=== PATIENT | female | born 1955 | race Caucasian/White ===

== ENCOUNTER 2020-05-25 12:38 | Day surgery (SDC) | payer MEDICARE, MEDICAID, SELFPAY ==
--- NOTE | 2020-05-22 13:10 | HO.ANESPROP2 ---
Documented by User: Sonia Horne 05/22/20 13:14 HPI - Anesthesia Eval Consult details Narrative: 65yo F for Upper Endoscopy [facility] Past Medical History Medical History Anemia Diabetes mellitus type 2, controlled, without complications Esophagitis GERD (gastroesophageal reflux disease) Surgical History Surgical History H/O esophagogastroduodenoscopy History of colonoscopy Hx of cholecystectomy Social History Social History Smoking Status: Current every day smoker Smoked in Last 30 Days: Yes Use of substances other than those prescribed or required for medical reasons: No Advance Directives: No Recently lost weight without trying: No Meds Allergies Allergy/AdvReac Type Severity Reaction Status Date / Time eggs Allergy Mild nausea and Verified 05/25/20 12:42 vomiting Home Medications Medication Instructions Recorded Confirmed Type glimepiride 4 mg PO DAILY 05/25/20 05/25/20 History Exam Exam Date and Time: May 22, 2020 1310 Pertinent Lab Results Pertinent Lab Results: Laboratory Tests 02/06/20 03/11/20 03/11/20 09:15 12:44 12:44 WBC 9.4 Hgb 13.1 Hct 41.3 Plt Count 341 Sodium 140 Potassium 5.0 Chloride 105 BUN 15 Creatinine 0.78 Assessment and Plan Assessment Anesthesia Assessment: Chart Reviewed Documented by User: Moises Vaughn MD 05/25/20 13:08 [facility] Past Medical History Medical History Anemia Diabetes mellitus type 2, controlled, without complications Esophagitis GERD (gastroesophageal reflux disease) Surgical History Surgical History H/O esophagogastroduodenoscopy History of colonoscopy Hx of cholecystectomy Social History Social History Smoking Status: Current every day smoker Smoked in Last 30 Days: Yes Use of substances other than those prescribed or required for medical reasons: No Advance Directives: No Recently lost weight without trying: No Meds Allergies Allergy/AdvReac Type Severity Reaction Status Date / Time eggs Allergy Mild nausea and Verified 05/25/20 12:42 vomiting Home Medications Medication Instructions Recorded Confirmed Type glimepiride 4 mg PO DAILY 05/25/20 05/25/20 History Exam Airway Mallampati Class: II TM Dist: >3cm Neck ROM: Full Partial: Upper and Lower Heart: rrr Lungs: nl Assessment and Plan Assessment Anesthesia Assessment: Anesthesia Plan Discussed and Chart Reviewed Final Anesthetic Review NPO: Yes ASA Class: III Final Preanesthetic Review: No Changes in Pt Med Stat, Meds/Allgs Chart Reviewed, Consent Obtained/Reviewed and Anes Risks/Benef Reviewed Patient Risk: Low Procedure Risk: Low Anesthetic Plan Anesthetic Plan: MAC: Disposition: Standard PACU
[2020-05-25 12:57] VITALS: BP 121/47; PULSE 71; RESP 16; TEMP 35.8; O2SAT 94; BMI 25.0
[2020-05-25] MEDS: Lactated Ringers 1,000 ML 100 ML IVCONT (13:12)
[2020-05-25 13:17] LABS: Glucose, Whole Blood 82 mg/dL (60-115)
--- NOTE | 2020-05-25 13:48 | P.HPSUR_ITS ---
Pre-Procedural Eval Section B Chief Complaint: gerd Details of Present Illness: Getting more acid reflux - really bad - att ributes to taking red meat. Not going to be eating red meat. Taking Famotidine 20 mg one to two times a day - sometimes forgets to take the 2nd dose. has foul smelling gas. Relevant Family History (Specify if Yes): No Relevant Social History: Tobacco Use Present Medications: see Short Stay Collaborative assessment Medical History: Significant History ( DM2. High triglycerides. Anemia. ) History of Previous Operations: Relevant previous surgery/procedure and date(s) (cholecystectomy pancreatitis caused by gallstones. 1995 colonoscopy/EGD @[facility] [place] 2019 ) Allergies: Allergies Allergy/AdvReac Type Severity Reaction Status Date / Time eggs Allergy Mild nausea and Verified 05/25/20 12:42 vomiting Review of Systems Sugical H&P ROS: Negative: Constitution, Cardiovascular, Respiratory and Gastrointestinal Exam Surgical H&P Exam: Normal: Heart, Normal: Lungs, Normal: Extremities and Normal: Abdomen Plan Diagnosis/Plan: Unchanged Patient has been examined and remains a candidate for the planned procedure
[2020-05-25 14:15] VITALS: BP 114/42; PULSE 85; RESP 23; TEMP 36.9; O2SAT 92
[2020-05-25 14:30] VITALS: BP 124/66; PULSE 75; RESP 16; O2SAT 98
--- NOTE | 2020-05-25 14:32 | W.PM.OPN ---
Operative Note Operative Note Narrative: Date of procedure: 05/25/20 Pre-op diagnosis: Fu of erosive esophgitis Post-op diagnosis: other (Hiatal hernia, esophagitis) Procedure: FLEXIBLE TRANSORAL UPPER GASTROINTESTINAL ENDOSCOPY WITH BIOPSIES Consent: Indications for the procedure and potential complications of bleeding, perforation, reaction to medications and missed diagnosis were discussed with the patient and informed consent was obtained. Instrument: Olympus GIF H 190 mid size upper endoscope Monitoring: Vital signs and clinical assessment, continuous EKG monitoring, Pulse oximetry, Carbon Dioxide monitoring and blood pressure monitoring were done throughout the procedure. Procedure: The patient was placed in the left lateral decubitis position and pre-procedure medications were administered and a bite block was placed. The endoscope was inserted into the mouth and advanced under direct vision to the third part of duodenum. A careful inspection was made as the upper endoscope was withdrawn including a retroflexed examination of the proximal stomach; Findings and interventions are described below. Findings: Larynx: Normal Esophagus: Circuferential folds in the proximal esophagus biopsied to check for EOE. GE junction at 36 cms, hiatal hernia 36 to 40 cms. Esophagitis noted on past EGD healed except for a single focal 1 cms erosion at GE junction. Stomach: Mild gastric erythema - biopsied during past EGD.. Grade 4 flap valve on retroflexed examination of the cardia. Duodenum: Normal bulb and descending duodenum Intervention: Biopsies as noted above Impression and Post Procedure Diagnosis: Endoscopy Findings: ESOPHAGUS: Circumferential folds in the proximal esophagus biopsied to check for EOE. GE junction at 36 cms, hiatal hernia 36 to 40 cms. Esophagitis noted on past EGD healed except for a single focal 1 cms erosion at GE junction. STOMACH: minimal gastritis Plan: Await pathology results Patient has an appointment on 07/06/20 in the GI Clinic with Evan Toure. Above findings were reviewed with the patient and a handout on GERD was given in the discharge area Surgeon: Ashtyn Sanon MD Anesthesia: MAC (Dr Vaughn) [employer] Specialist: Juliet Arnett Estimated blood loss (mL): 0 Pathology: other (A. Proximal esophagus) Condition: stable Disposition: PACU
[2020-05-25 14:45] VITALS: BP 125/55; PULSE 70; RESP 16; O2SAT 100
[2020-05-25 15:00] VITALS: BP 107/58; PULSE 68; RESP 15; O2SAT 96
--- NOTE | 2020-05-25 15:44 | HO.POSTANES ---
Post Anesthesia Evaluation Post Anesthesia Evaluation Vital Signs: Vital Signs Temp Pulse Resp BP Pulse Ox 05/25/20 14:15 98.4 F 85 23 H 114/42 L 92 05/25/20 12:57 96.5 F L 71 16 121/47 L 94 Anesthesia: Monitored Mental Status: Awake Pain Control: Satisfactory Nausea/Vomiting: None Hydration: Adequate Anesthesia-Related Issues: No Anes. Related Issues
== END 2020-05-25 15:49 | disposition home or self-care (01) ==
PROVIDERS: PCP Internal Medicine; Visit Provider Internal Medicine Gastroenterology
PROC: 0DJ08ZZ Inspection of Upper Intestinal Tract, Via Natural or Artificial Opening Endoscopic (ICD-10-PCS; CPT 43235; principal; 2020-05-25 13:30)
DX: K21.00 Gastro-esophageal reflux disease with esophagitis, without bleeding (principal); K44.9 Diaphragmatic hernia without obstruction or gangrene; K29.70 Gastritis, unspecified, without bleeding; E11.9 Type 2 diabetes mellitus without complications; Z79.4 Long term (current) use of insulin; D50.9 Iron deficiency anemia, unspecified; Z79.899 Other long term (current) drug therapy; Z90.49 Acquired absence of other specified parts of digestive tract; F17.210 Nicotine dependence, cigarettes, uncomplicated
CPT/HCPCS: 43239; 82947; 88305

== ENCOUNTER → 2020-06-25 09:07 | Outpatient (BNVA) | payer OTHER, SELFPAY | PROVIDERS: PCP Internal Medicine; Referring Provider Internal Medicine; Visit Provider Nurse Practitioner Gerontology | DX: E11.65 Type 2 diabetes mellitus with hyperglycemia (principal); E11.40 Type 2 diabetes mellitus with diabetic neuropathy, unspecified; E78.5 Hyperlipidemia, unspecified; F17.200 Nicotine dependence, unspecified, uncomplicated; Z79.899 Other long term (current) drug therapy; Z79.4 Long term (current) use of insulin | CPT/HCPCS: 99212 ==

== ENCOUNTER → 2020-07-28 13:06 | Outpatient (BNVA) | payer OTHER, SELFPAY | PROVIDERS: Visit Provider Orthopaedic Surgery | DX: M65.311 Trigger thumb, right thumb (principal) | CPT/HCPCS: 20550; 99202; J1100 ==

== ENCOUNTER → 2020-07-31 08:23 | Outpatient (BNVA) | payer OTHER, SELFPAY | PROVIDERS: Visit Provider Nurse Practitioner Gerontology | DX: Z13.89 Encounter for screening for other disorder (principal) | CPT/HCPCS: Q3014 ==

== ENCOUNTER → 2020-08-13 09:11 | Outpatient (BNVA) | payer OTHER, SELFPAY | PROVIDERS: PCP Internal Medicine; Visit Provider Nurse Practitioner Gerontology | DX: Z13.89 Encounter for screening for other disorder (principal) | CPT/HCPCS: Q3014 ==

== ENCOUNTER → 2020-08-17 15:34 | Outpatient (BNVA) | payer OTHER, SELFPAY | PROVIDERS: PCP Internal Medicine; Visit Provider Internal Medicine Gastroenterology | CPT/HCPCS: Q3014 ==

== ENCOUNTER → 2020-08-27 08:28 | Outpatient (BNVA) | payer MEDICARE, SELFPAY | PROVIDERS: PCP Internal Medicine; Visit Provider Nurse Practitioner Gerontology ==

== ENCOUNTER 2020-09-14 09:08 | Outpatient (REF) | payer MEDICARE, SELFPAY ==
[2020-09-14 10:16] LABS: MANUAL DIFF FLAG NO
[2020-09-14 10:45] LABS: Basophils Absolute Auto 0.1 X10*3/uL (0.0-0.2); Basophils Percent Auto 0.9 % (0-2); Eosinophils Absolute Auto 0.3 X10*3/uL (0.0-0.4); Eosinophils Percent Auto 3.7 % (0-4); Hematocrit 42.4 % (37-47); Hemoglobin 13.7 g/dl (12.0-16.0); Imm Gran Abs Auto 0.04 X10*3/uL (0.00-0.03); Imm Gran Pct Auto 0.5 % (0.0-0.4); Lymphocytes Absolute Auto 2.6 X10*3/uL (1.2-4.9); Mean Corpuscular HGB Conc 32.3 g/dl (31.0-35.0); Mean Corpuscular Hemoglobin 29.5 pg (27.0-33.0); Mean Corpuscular Volume 91.4 fL (80-98); Mean Platelet Volume 10.6 fL (9.4-12.3); Monocytes Absolute Auto 0.7 X10*3/uL (0.1-1.2); Monocytes Percent Auto 7.6 % (2-11); Neutrophils Absolute Auto 5.2 X10*3/uL (2.0-8.3); Neutrophils Percent Auto 58.3 % (45-73); Platelet Count 386 X10*3/uL (160-400); Red Blood Count 4.64 X10*6/uL (4.20-5.50); Red Cell Distribution Width 12.9 % (11.0-16.0); White Blood Count 8.9 X10*3/uL (4.8-10.8)
[2020-09-14 11:10] LABS: Creatinine Urine 49.89 mg/dL
[2020-09-14 11:11] LABS: Anion Gap 16 (12-20); Blood Urea Nitrogen 18 mg/dL (9-16); Calcium 9.4 mg/dL (8.4-10.2); Carbon Dioxide 21 mmol/L (22-29); Chloride 103 mmol/L (96-108); Cholesterol 268 mg/dL; Estimated Glomerular Filt Rate > 60; Glucose Fasting 232 mg/dL (60-99); HDL Cholesterol 36 mg/dL; Potassium 4.6 mmol/L (3.3-5.1); Sodium 135 mmol/L (135-145); Triglycerides 766 mg/dL
[2020-09-14 11:19] LABS: Ferritin 23 ng/mL (10-250)
[2020-09-14 11:40] LABS: Estimated Average Glucose 200 mg/dL; Hemoglobin A1c % 8.6 %
== END 2020-09-14 09:09 | disposition home or self-care (01) ==
LOC: HO.LAB 09:08
PROVIDERS: Absent Provider Nurse Practitioner Gerontology; PCP Internal Medicine; Referring Provider Internal Medicine Gastroenterology; Visit Provider Internal Medicine
DX: Z00.01 Encounter for general adult medical examination with abnormal findings (principal); E11.65 Type 2 diabetes mellitus with hyperglycemia; E11.40 Type 2 diabetes mellitus with diabetic neuropathy, unspecified; D50.9 Iron deficiency anemia, unspecified; E78.9 Disorder of lipoprotein metabolism, unspecified; F41.1 Generalized anxiety disorder; Z79.4 Long term (current) use of insulin
CPT/HCPCS: 36415; 80048; 80061; 82043; 82728; 83036; 85025

== ENCOUNTER → 2020-10-23 10:59 | Outpatient (BNVA) | payer OTHER, SELFPAY | PROVIDERS: PCP Internal Medicine; Visit Provider Nurse Practitioner Gerontology | DX: E11.65 Type 2 diabetes mellitus with hyperglycemia (principal); Z79.4 Long term (current) use of insulin; E78.5 Hyperlipidemia, unspecified | CPT/HCPCS: 82947; 99212 ==

== ENCOUNTER 2020-12-16 08:27 | Outpatient (REF) | payer MEDICARE, SELFPAY ==
[2020-12-16 09:25] LABS: Estimated Average Glucose 197 mg/dL; Hemoglobin A1c % 8.5 %
== END 2020-12-16 08:28 | disposition home or self-care (01) ==
LOC: HO.LAB 08:27
PROVIDERS: PCP Internal Medicine; Visit Provider Nurse Practitioner Gerontology
DX: E11.65 Type 2 diabetes mellitus with hyperglycemia (principal); Z79.4 Long term (current) use of insulin
CPT/HCPCS: 36415; 83036

== ENCOUNTER → 2021-01-11 13:49 | Outpatient (BNVA) | payer MEDICARE, SELFPAY | PROVIDERS: Visit Provider Internal Medicine Gastroenterology | DX: Z13.89 Encounter for screening for other disorder (principal) | CPT/HCPCS: Q3014 ==

== ENCOUNTER → 2021-02-08 11:03 | Outpatient (BNVA) | payer MEDICARE, SELFPAY | PROVIDERS: PCP Internal Medicine; Visit Provider Nurse Practitioner Gerontology | DX: E11.65 Type 2 diabetes mellitus with hyperglycemia (principal); E78.5 Hyperlipidemia, unspecified; Z79.4 Long term (current) use of insulin | CPT/HCPCS: 82947; 99212 ==

== ENCOUNTER 2021-03-31 11:21 | Outpatient (REF) | payer MEDICARE, SELFPAY ==
--- NOTE | ~2021-03-31 | XR_ITS ---
EXAMINATION: XR SHOULDER, RIGHT CLINICAL INFORMATION: Pain in right shoulder. COMPARISON: None TECHNIQUE: AP external rotation, Grashey, scapular Y, and axillary views of the right shoulder. FINDINGS: The bones and soft tissues are normal. No fracture. Glenohumeral and acromioclavicular alignment is anatomic with normal joint space. No abnormal soft tissue calcifications. XR/XR shoulder RT min 2V IMPRESSION: Unremarkable right shoulder exam.
== END 2021-03-31 11:22 | disposition home or self-care (01) ==
LOC: HO.XRAY 11:21
PROVIDERS: PCP Internal Medicine; Visit Provider Internal Medicine
DX: M25.511 Pain in right shoulder (principal)
CPT/HCPCS: 73030

== ENCOUNTER 2021-05-19 10:00 | Outpatient (RCR) | payer MEDICARE, SELFPAY ==
--- NOTE | 2021-04-15 10:00 | MHC.PT.EP ---
[facility] [place] [facility] [place] [facility] [place] [facility] [address] [phone] F: [phone] F: [phone] F: [phone] F: [phone] Physical Therapy Plan of Care Date of Evaluation: Date of Surgery: Diagnosis: right shoulder pain Assessment: The patient arrived with shoulder and neck pain, reduced shoulder ROM and strength. This also creates functional limitations with decreased reaching ability and difficulty with personal hygiene. The patient is showing clear signs of a posterolateral derangement demonstrated by an improvement in shoulder ROM after cervical stretches. She was given initial sleeping and sitting education and then right rotation/cervical retraction HEP. Pt is a good candidate for skilled PT. Frequency and Duration: The patient will be seen 2x/week x 4 weeks. Short Term Goals: 2 weeks 1.Pt to able to demonstrate proper sitting posture with the use of a lumbar roll to decrease aggravating factors. 2.Pt to be able to demonstrate proper posture for common leisure activities such as phone/tablet use. 3.For the patient to demonstrate proper upright sitting posture with use of the lumbar roll to improve compliance and carryover. Penitentiary Goals: 1. Pt to be able to return to normal PLOF without limiting pain. 2. Pt to be able to return to overhead reaching without pain or limitation. 3. Pt to be able to manage her pain with selected exercise and stretching regime. Treatment Plan: Modalities to reduce pain, spasms and effusion. Manual therapy to restore motion and function. Therapeutic exercise to improve strength and flexibility. Neuromuscular re-education for posture and balance. Therapeutic activities to return to functional activities of daily living. Electronically signed by: Ly Su PT DPT Please sign and return to therapist. Thank you for your referral.
== END 2021-07-19 08:43 | disposition home or self-care (01) ==
LOC: HO.PT 10:00
PROVIDERS: PCP Internal Medicine; Visit Provider Internal Medicine
DX: M25.511 Pain in right shoulder (principal)
CPT/HCPCS: 97110; 97112; 97140; 97150; 97162

== ENCOUNTER 2021-05-25 10:14 | Outpatient (REF) | payer MEDICARE, SELFPAY ==
--- NOTE | ~2021-05-25 | MM_ITS ---
EXAMINATION: MM SCREENING DIGITAL BREAST TOMOSYNTHESIS, BILATERAL CLINICAL INFORMATION: Screening. Asymptomatic. The lifetime risk of breast cancer based on the Tyrer-Cuzick Model is 3.9%. COMPARISON: Mammography: September 12, 2019 TECHNIQUE: Digital breast tomosynthesis is performed in both the craniocaudal and mediolateral oblique views along with computer-aided detection (CAD). Synthesized 2D images are generated from the tomosynthesis. FINDINGS: There are scattered areas of fibroglandular density (ACR BI-RADS breast composition Category b). Stable parenchymal pattern of the right breast without new abnormal dominant mass or suspicious grouping of microcalcifications. About the anterior aspect of the left breast on craniocaudal view there appears to be increasing grouping of microcalcifications these may be artifactual from the 3-D technique. Recommend spot magnification views in craniocaudal and 90 degree mediolateral views. MM/MM tomosynthesis screening BI IMPRESSION: Left breast calcifications for further evaluation. ASSESSMENT: BI-RADS 0: Incomplete - Need Additional Imaging Evaluation RECOMMENDATION: 1. Additional views of the left breast 2. Targeted ultrasound if warranted after review of the additional views. 3. Radiology department staff will contact the patient for additional imaging. This patient's information was entered into a reminder system with a target due date for their next mammogram.
--- NOTE | ~2021-05-25 | MM_ITS ---
EXAMINATION: BONE DENSITOMETRY CLINICAL INDICATION: Other specified disorders of bone density and structure. COMPARISON: None (current study represents initial baseline exam). TECHNIQUE: Using a Ubimo DXA System (software version: 13.1) manufactured by [employer], dual-energy x-ray absorptiometry was performed of the lumbar spine and left hip. The images are of good technical quality. Summary results are attached. FINDINGS: AP SPINE L1-L2 (excluding L3 and L4): The data of L1-L4 has been changed to exclude the L3 and L4 vertebral bodies, because degenerative changes at these levels may cause overestimation of lumbar spine density. BMD 0.750 g/cm2, Z-score -1.8, T-score -3.5, osteoporosis. LEFT FEMUR, NECK: BMD 0.714 g/cm2, Z-score -0.8, T-score -2.3, osteopenia. LEFT FEMUR, TOTAL: BMD 0.812 g/cm2, Z-score -0.3, T-score -1.6, osteopenia. IDENTIFIED RISK FACTORS: Secondary osteoporosis, tobacco use (current smoker), menopause. HISTORY OF FRACTURE: None listed. MEDICATIONS: Multivitamin. MM/XR DEXA axial skeleton IMPRESSION: 1. DIAGNOSIS: Osteoporosis based on the lowest T-score value of -3.5 in the lumbar spine applying World Health Organization criteria. 2. 10-YEAR FRACTURE RISK PREDICTION, FRAX: According to the guidelines, FRAX calculation should only be performed on patients in the osteopenia bone density category. 3. Treatment Recommendations: NOF guidelines recommend consideration for treatment in postmenopausal women and men age 50 and older presenting with the following: -A hip or vertebral (clinical or morphometric) fracture. -T-score less than or equal to -2.5 at the femoral neck or spine after appropriate evaluation to exclude secondary causes. -Low bone mass at the hip or spine and a 10-year fracture probability by FRAX of greater than or equal to 3% for hip fracture or greater than or equal to 20% for major osteoporotic fracture based on the [place] adapted WHO algorithm. 4. Other Recommendations: All treatment decisions require clinical judgment and consideration of individual patient factors, including patient preferences, comorbidities, previous drug use, risk factors not captured in the FRAX model (e.g. frailty, falls, vitamin D deficiency, increased bone turnover, interval significant decline in bone density) and possible under or overestimation of fracture risk by FRAX. Additional medical evaluation for secondary cause of low bone mineral density may be appropriate. FUTURE SCAN RECOMMENDATION: People with diagnosed cases of osteoporosis or at high risk for fracture should have regular bone mineral density tests. For patients eligible for Medicare, routine testing is allowed once every 2 years. The testing frequency can be increased to one year for patients who have rapidly progressing disease, those who are receiving or discontinuing medical therapy to restore bone mass, or have additional risk factors.
== END 2021-05-25 10:15 | disposition home or self-care (01) ==
LOC: HO.MAMMO 10:14
PROVIDERS: Visit Provider Internal Medicine
DX: Z12.31 Encounter for screening mammogram for malignant neoplasm of breast (principal); Z13.820 Encounter for screening for osteoporosis; M81.0 Age-related osteoporosis without current pathological fracture; M85.80 Other specified disorders of bone density and structure, unspecified site; F17.200 Nicotine dependence, unspecified, uncomplicated; Z78.0 Asymptomatic menopausal state; Z79.899 Other long term (current) drug therapy
CPT/HCPCS: 77063; 77067; 77080

== ENCOUNTER 2021-05-28 09:07 | Outpatient (REF) | payer MEDICARE, SELFPAY ==
--- NOTE | ~2021-05-28 | MM_ITS ---
EXAMINATION: MM DIAGNOSTIC DIGITAL MAMMOGRAPHY, LEFT CLINICAL INFORMATION: Left breast calcifications deep aspect of the left breast. COMPARISON: Mammography: 09/12/2019 TECHNIQUE: Digital mammography is performed in the following views: Spot magnification views of the left breast in craniocaudal and 90 degree mediolateral views. FINDINGS: There are scattered areas of fibroglandular density (ACR BI-RADS breast composition Category b). The 2 adjacent grouping of calcifications have a coarsened tightly packed appearance. No linear or branching forms are identified. Recommend 6 month follow-up magnification views of the left breast for continued surveillance. Results are provided to the patient at time of visit by the technologist. MM/MM added views LT IMPRESSION: Probably benign calcifications deep medial left breast. ASSESSMENT: BI-RADS 3: Probably Benign RECOMMENDATION: Diagnostic mammography in 6 months. This patient's information was entered into a reminder system with a target due date for their next mammogram.
== END 2021-05-28 09:08 | disposition home or self-care (01) ==
LOC: HO.MAMMO 09:07
PROVIDERS: Visit Provider Internal Medicine
DX: R92.1 Mammographic calcification found on diagnostic imaging of breast (principal)
CPT/HCPCS: 77065

== ENCOUNTER 2021-06-26 07:30 | Outpatient (REF) | payer MEDICARE, SELFPAY ==
[2021-06-26 07:39] LABS: MANUAL DIFF FLAG NO
[2021-06-26 08:04] LABS: Basophils Absolute Auto 0.1 X10*3/uL (0.0-0.2); Basophils Percent Auto 0.8 % (0-2); Eosinophils Absolute Auto 0.5 X10*3/uL (0.0-0.4); Eosinophils Percent Auto 5.3 % (0-4); Hematocrit 40.3 % (37.0-47.0); Hemoglobin 12.7 g/dl (12.0-16.0); Imm Gran Abs Auto 0.04 X10*3/uL (0.00-0.03); Imm Gran Pct Auto 0.4 % (0.0-0.4); Lymphocytes Absolute Auto 3.6 X10*3/uL (1.2-4.9); Lymphocytes Percent Auto 35.4 % (20-40); Mean Corpuscular HGB Conc 31.5 g/dl (31.0-35.0); Mean Corpuscular Hemoglobin 29.1 pg (27.0-33.0); Mean Corpuscular Volume 92.2 fL (80.0-98.0); Monocytes Absolute Auto 0.8 X10*3/uL (0.1-1.2); Monocytes Percent Auto 7.5 % (2-11); Neutrophils Absolute Auto 5.2 x10*3/uL (2.0-8.3); Neutrophils Percent Auto 50.6 % (45-73); Platelet Count 415 X10*3/uL (160-400); Red Blood Count 4.37 X10*6/uL (4.20-5.50); Red Cell Distribution Width 14.2 % (11.0-16.0); White Blood Count 10.2 X10*3/uL (4.8-10.8)
[2021-06-26 08:24] LABS: Alanine Aminotransferase 13 U/L (0-31); Albumin Level 4.3 g/dL (3.5-5.0); Alkaline Phosphatase 59 U/L (39-117); Anion Gap 14 (12-20); Aspartate Amino Transferase 13 U/L (5-31); Bilirubin Total 0.3 mg/dL (0.0-1.0); Blood Urea Nitrogen 24 mg/dL (9-16); Carbon Dioxide 25 mmol/L (22-29); Chloride 105 mmol/L (96-108); Cholesterol 185 mg/dL; Estimated Glomerular Filt Rate > 60; Glucose Random 193 mg/dL (60-115); HDL Cholesterol 40 mg/dL; LDL Cholesterol Calculated 100 mg/dl; Potassium 4.9 mmol/L (3.3-5.1); Sodium 139 mmol/L (135-145); Total Protein 7.3 g/dL (6.5-8.0); Triglycerides 225 mg/dL
[2021-06-26 08:39] LABS: Free T4 (Free Thyroxine) 0.85 ng/dL (0.71-1.85); Thyroid Stimulating Hormone 0.89 uIU/mL (0.32-4.0)
== END 2021-06-26 07:31 | disposition home or self-care (01) ==
LOC: HO.LAB 07:30
PROVIDERS: PCP Internal Medicine; Visit Provider Internal Medicine
DX: E11.65 Type 2 diabetes mellitus with hyperglycemia (principal); E78.00 Pure hypercholesterolemia, unspecified; Z79.4 Long term (current) use of insulin
CPT/HCPCS: 36415; 80053; 80061; 84439; 84443; 85025

== ENCOUNTER → 2021-06-28 10:19 | Outpatient (BNVA) | payer MEDICARE, SELFPAY | PROVIDERS: PCP Internal Medicine; Visit Provider Nurse Practitioner Gerontology | DX: E11.65 Type 2 diabetes mellitus with hyperglycemia (principal); E78.5 Hyperlipidemia, unspecified; Z79.4 Long term (current) use of insulin | CPT/HCPCS: 82947; 83036; 99212 ==

== ENCOUNTER → 2021-08-04 10:16 | Outpatient (BNVA) | payer MEDICARE, SELFPAY | PROVIDERS: PCP Internal Medicine; Visit Provider Registered Nurse Diabetes Educator | DX: E11.65 Type 2 diabetes mellitus with hyperglycemia (principal); E11.40 Type 2 diabetes mellitus with diabetic neuropathy, unspecified; Z79.4 Long term (current) use of insulin | CPT/HCPCS: 99211 ==

== ENCOUNTER 2021-09-14 09:03 | Outpatient (REF) | payer MEDICARE, SELFPAY ==
[2021-09-14 11:16] LABS: Alanine Aminotransferase 10 U/L (0-31); Albumin Level 4.4 g/dL (3.5-5.0); Alkaline Phosphatase 56 U/L (39-117); Anion Gap 13 (12-20); Aspartate Amino Transferase 13 U/L (5-31); Bilirubin Total 0.3 mg/dL (0.0-1.0); Blood Urea Nitrogen 18 mg/dL (9-16); Calcium 10.1 mg/dL (8.4-10.2); Carbon Dioxide 26 mmol/L (22-29); Chloride 105 mmol/L (96-108); Cholesterol 187 mg/dL; Estimated Average Glucose 180 mg/dL; Estimated Glomerular Filt Rate > 60; Glucose Random 128 mg/dL (60-115); HDL Cholesterol 47 mg/dL; Hemoglobin A1c % 7.9 %; LDL Cholesterol Calculated 118 mg/dl; Potassium 5.1 mmol/L (3.3-5.1); Sodium 139 mmol/L (135-145); Total Protein 7.6 g/dL (6.5-8.0); Triglycerides 113 mg/dL
== END 2021-09-14 09:04 | disposition home or self-care (01) ==
LOC: HO.LAB 09:03
PROVIDERS: PCP Internal Medicine; Visit Provider Internal Medicine
DX: Z00.01 Encounter for general adult medical examination with abnormal findings (principal); E11.40 Type 2 diabetes mellitus with diabetic neuropathy, unspecified; E78.00 Pure hypercholesterolemia, unspecified; E78.5 Hyperlipidemia, unspecified; E78.9 Disorder of lipoprotein metabolism, unspecified; F41.1 Generalized anxiety disorder; D50.0 Iron deficiency anemia secondary to blood loss (chronic)
CPT/HCPCS: 36415; 80053; 80061; 83036

== ENCOUNTER → 2021-10-07 10:49 | Outpatient (BNVA) | payer MEDICARE, SELFPAY | PROVIDERS: PCP Internal Medicine; Visit Provider Nurse Practitioner Gerontology | DX: E11.65 Type 2 diabetes mellitus with hyperglycemia (principal); E78.5 Hyperlipidemia, unspecified; Z79.4 Long term (current) use of insulin | CPT/HCPCS: 82947; 99212 ==

== ENCOUNTER 2021-11-16 08:15 | Outpatient (REF) | payer OTHER, SELFPAY ==
--- NOTE | ~2021-11-16 | XR_ITS ---
EXAMINATION: XR CHEST CLINICAL INFORMATION: Cough COMPARISON: None TECHNIQUE: 2 views of the chest were obtained. FINDINGS: No significant abnormality is noted involving the heart, lungs, mediastinum, bony thorax or soft tissues. XR/XR chest 2V IMPRESSION: Unremarkable examination.
== END 2021-11-16 08:16 | disposition home or self-care (01) ==
LOC: HO.XRAY 08:15
PROVIDERS: PCP Internal Medicine; Visit Provider Internal Medicine
DX: R05.9 Cough, unspecified (principal)
CPT/HCPCS: 71046

== ENCOUNTER 2021-11-25 12:28 | Outpatient (REF) | payer OTHER, SELFPAY ==
--- NOTE | ~2021-11-25 | MM_ITS ---
EXAMINATION: MM DIAGNOSTIC DIGITAL BREAST TOMOSYNTHESIS, LEFT CLINICAL INFORMATION: Short interval six-month follow-up probable benign calcifications anterior left breast just lateral to midline. TC score 4%. COMPARISON: Mammography: 05/28/2021, 05/25/2021 (BI-RADS 0), 09/12/2019 TECHNIQUE: Digital breast tomosynthesis is performed in both the craniocaudal and mediolateral oblique views along with computer-aided detection (CAD). Synthesized 2D images are generated from the tomosynthesis. Additional magnification CC and magnification ML x2 views are provided. FINDINGS: There are scattered areas of fibroglandular density (ACR BI-RADS breast composition Category b). Parenchymal pattern is similar to prior studies and there is no interval mass or architectural abnormality or developing density. There are benign stable loosely grouped coarse calcifications posterior medial left breast. The anterior breast calcifications for follow-up are stable. There is no increasing calcifications or pleomorphic types. The axilla and skin contours are unremarkable. Results are provided to the patient at time of visit by the technologist. MM/MM tomosynthesis diagnostic LT IMPRESSION: No significant changes from prior diagnostic exams. No interval suspicious calcifications anterior breast. ASSESSMENT: BI-RADS 3: Probably Benign RECOMMENDATION: Diagnostic mammography at time of annual bilateral exam, due in 6 months. This patient's information was entered into a reminder system with a target due date for their next mammogram.
== END 2021-11-25 12:29 | disposition home or self-care (01) ==
LOC: HO.MAMMO 12:28
PROVIDERS: Visit Provider Internal Medicine
DX: R92.1 Mammographic calcification found on diagnostic imaging of breast (principal)
CPT/HCPCS: 77061; 77065

== ENCOUNTER 2021-12-27 08:05 | Outpatient (REF) | payer OTHER, SELFPAY ==
[2021-12-27 09:03] LABS: Estimated Average Glucose 180 mg/dL; Hemoglobin A1c % 7.9 %
[2021-12-27 09:14] LABS: Alanine Aminotransferase 12 U/L (0-31); Albumin Level 4.5 g/dL (3.5-5.0); Alkaline Phosphatase 63 U/L (39-117); Anion Gap 13 (12-20); Aspartate Amino Transferase 13 U/L (5-31); Bilirubin Total 0.4 mg/dL (0.0-1.0); Blood Urea Nitrogen 24 mg/dL (9-16); Calcium 9.9 mg/dL (8.4-10.2); Carbon Dioxide 22 mmol/L (22-29); Chloride 107 mmol/L (96-108); Cholesterol 130 mg/dL; Estimated Glomerular Filt Rate > 60; Glucose Random 154 mg/dL (60-115); HDL Cholesterol 36 mg/dL; LDL Cholesterol Calculated 55 mg/dl; Potassium 4.8 mmol/L (3.3-5.1); Sodium 137 mmol/L (135-145); Total Protein 7.7 g/dL (6.5-8.0); Triglycerides 198 mg/dL
== END 2021-12-27 08:06 | disposition home or self-care (01) ==
LOC: HO.LAB 08:05
PROVIDERS: PCP Internal Medicine; Visit Provider Internal Medicine
DX: E11.65 Type 2 diabetes mellitus with hyperglycemia (principal); E78.00 Pure hypercholesterolemia, unspecified; E78.5 Hyperlipidemia, unspecified; Z79.4 Long term (current) use of insulin
CPT/HCPCS: 36415; 80053; 80061; 83036

== ENCOUNTER 2022-06-02 12:44 | Outpatient (REF) | payer OTHER, SELFPAY ==
--- NOTE | ~2022-06-02 | MM_ITS ---
EXAMINATION: MM DIAGNOSTIC DIGITAL BREAST TOMOSYNTHESIS, BILATERAL CLINICAL INFORMATION: Due for yearly. Also follow-up probable benign calcifications anterior left breast. TC score 4%. COMPARISON: Mammography: 11/25/2021, 05/28/2021, 05/25/2021 (BI-RADS 0), 09/12/2019 TECHNIQUE: Digital breast tomosynthesis is performed in both the craniocaudal and mediolateral oblique views along with computer-aided detection (CAD). Synthesized 2D images are generated from the tomosynthesis. Additional views are provided: Magnification left CC x2, magnification left ML, right MLO. FINDINGS: There are scattered areas of fibroglandular density (ACR BI-RADS breast composition Category b). Parenchymal pattern is similar to prior studies. Scattered minor asymmetries are stable. No developing density or interval mass or architectural abnormality. Again, there are scattered bilateral benign round and coarse rim calcifications. Benign-appearing grouped coarse calcifications again seen posterior medial left breast. Calcifications for follow-up anterior left breast appear scattered and no interval grouping or pleomorphic types. Left breast will be reassessed again at time of annual bilateral mammography, due in 12 months. Results are provided to the patient at time of visit by the technologist. MM/MM tomosynthesis diagnostic BI IMPRESSION: No mammographic evidence of malignancy. No increasing calcifications anterior left breast. ASSESSMENT: BI-RADS 3: Probably Benign RECOMMENDATION: Diagnostic mammography at time of next annual exam, due in 12 months. This patient's information was entered into a reminder system with a target due date for their next mammogram.
== END 2022-06-02 12:45 | disposition home or self-care (01) ==
LOC: HO.MAMMO 12:44
PROVIDERS: Visit Provider Internal Medicine
DX: R92.1 Mammographic calcification found on diagnostic imaging of breast (principal)
CPT/HCPCS: 77062; 77066

== ENCOUNTER 2022-08-09 08:30 | Outpatient (REF) | payer OTHER, SELFPAY ==
[2022-08-09 08:52] LABS: MANUAL DIFF FLAG NO
[2022-08-09 09:22] LABS: Basophils Absolute Auto 0.1 X10*3/uL (0.0-0.2); Basophils Percent Auto 1.4 % (0-2); Eosinophils Absolute Auto 0.4 X10*3/uL (0.0-0.4); Eosinophils Percent Auto 4.3 % (0-4); Hematocrit 38.5 % (37.0-47.0); Hemoglobin 12.3 g/dl (12.0-16.0); Imm Gran Abs Auto 0.05 X10*3/uL (0.00-0.03); Imm Gran Pct Auto 0.5 % (0.0-0.4); Lymphocytes Absolute Auto 2.9 X10*3/uL (1.2-4.9); Lymphocytes Percent Auto 29.9 % (20-40); Mean Corpuscular HGB Conc 31.9 g/dl (31.0-35.0); Mean Corpuscular Hemoglobin 28.6 pg (27.0-33.0); Mean Corpuscular Volume 89.5 fL (80.0-98.0); Mean Platelet Volume 9.9 fL (9.4-12.3); Monocytes Absolute Auto 0.8 X10*3/uL (0.1-1.2); Monocytes Percent Auto 8.4 % (2-11); Neutrophils Absolute Auto 5.4 x10*3/uL (2.0-8.3); Neutrophils Percent Auto 55.5 % (45-73); Platelet Count 460 X10*3/uL (160-400); Red Cell Distribution Width 14.5 % (11.0-16.0); White Blood Count 9.7 X10*3/uL (4.8-10.8)
[2022-08-09 10:10] LABS: Creatinine Urine 49.56 mg/dL; Microalbum/Creatinine Ratio Ur 12.1 ug/mg cr
[2022-08-09 10:27] LABS: Alanine Aminotransferase 14 U/L (0-31); Albumin Level 4.6 g/dL (3.5-5.0); Alkaline Phosphatase 58 U/L (39-117); Anion Gap 14 (12-20); Aspartate Amino Transferase 13 U/L (5-31); Bilirubin Total 0.4 mg/dL (0.0-1.0); Blood Urea Nitrogen 18 mg/dL (9-16); Calcium 10.1 mg/dL (8.4-10.2); Carbon Dioxide 23 mmol/L (22-29); Chloride 107 mmol/L (96-108); Cholesterol 164 mg/dL; Estimated Glomerular Filt Rate > 60; Glucose Random 121 mg/dL (60-115); HDL Cholesterol 42 mg/dL; LDL Cholesterol Calculated 83 mg/dl; Potassium 4.5 mmol/L (3.3-5.1); Sodium 139 mmol/L (135-145); Total Protein 7.6 g/dL (6.5-8.0); Triglycerides 198 mg/dL
[2022-08-09 10:46] LABS: Free T4 (Free Thyroxine) 0.77 ng/dL (0.71-1.85); Thyroid Stimulating Hormone 0.95 uIU/mL (0.32-4.0); Vitamin D 25-OH Total 5.5 ng/mL (>30)
[2022-08-09 10:50] LABS: Folate 9.9 ng/mL (> or = 4.0); Vitamin B12 317 pg/mL (200-900)
== END 2022-08-09 08:31 | disposition home or self-care (01) ==
LOC: HO.LAB 08:30
PROVIDERS: Visit Provider Internal Medicine
DX: E11.65 Type 2 diabetes mellitus with hyperglycemia (principal); E78.00 Pure hypercholesterolemia, unspecified; Z79.4 Long term (current) use of insulin
CPT/HCPCS: 36415; 80053; 80061; 82043; 82306; 82607; 82746; 84439; 84443; 85025

== ENCOUNTER 2022-09-26 08:23 | Outpatient (REF) | payer OTHER, SELFPAY ==
--- NOTE | ~2022-09-26 | US_ITS ---
EXAMINATION: US ABDOMEN COMPLETE CLINICAL INFORMATION: Abnormal blood chemistry. Right upper quadrant pain. COMPARISON: Ultrasound abdomen 08/05/2019. TECHNIQUE: Real-time imaging of the abdominal viscera. FINDINGS: PANCREAS: The pancreas appears normal. The tail is obscured by bowel gas. ABDOMINAL AORTA: The proximal, mid, and distal segments are normal in caliber. INFERIOR VENA CAVA: Visualized portions are normal. LIVER: The liver is normal in size. The liver contour is normal. There is diffuse increased liver parenchymal echogenicity, consistent with hepatic steatosis. No focal hepatic lesion. There is no intrahepatic biliary duct dilatation seen. GALLBLADDER: Surgically absent. COMMON BILE DUCT: Normal in caliber measuring 0.5 cm in diameter. RIGHT KIDNEY: Normal. No hydronephrosis. No renal calculi or focal parenchymal lesions. The kidney measures 11.0 cm in maximum dimension. LEFT KIDNEY: No hydronephrosis. No renal calculi or focal parenchymal lesions. The kidney measures 10.3 cm in maximum dimension. SPLEEN: Normal. The spleen measures 8.5 cm in maximum dimension. FREE FLUID: None. US/US abdomen complete IMPRESSION: Hepatic steatosis. Cholecystectomy.
== END 2022-09-26 08:24 | disposition home or self-care (01) ==
LOC: HO.US 08:23
PROVIDERS: PCP Internal Medicine; Visit Provider Internal Medicine
DX: R03.0 Elevated blood-pressure reading, without diagnosis of hypertension (principal); R79.89 Other specified abnormal findings of blood chemistry
CPT/HCPCS: 76700

== ENCOUNTER 2023-05-02 08:08 | Outpatient (REF) | payer OTHER, SELFPAY ==
[2023-05-02 08:21] LABS: MANUAL DIFF FLAG NO
[2023-05-02 08:41] LABS: Basophils Absolute Auto 0.1 X10*3/uL (0.0-0.2); Basophils Percent Auto 1.1 % (0-2); Eosinophils Absolute Auto 0.4 X10*3/uL (0.0-0.4); Eosinophils Percent Auto 4.4 % (0-4); Hematocrit 37.6 % (37.0-47.0); Hemoglobin 11.9 g/dl (12.0-16.0); Imm Gran Abs Auto 0.04 X10*3/uL (0.00-0.03); Imm Gran Pct Auto 0.4 % (0.0-0.4); Lymphocytes Absolute Auto 3.8 X10*3/uL (1.2-4.9); Lymphocytes Percent Auto 40.2 % (20-40); Mean Corpuscular HGB Conc 31.6 g/dl (31.0-35.0); Mean Corpuscular Hemoglobin 28.7 pg (27.0-33.0); Mean Corpuscular Volume 90.6 fL (80.0-98.0); Mean Platelet Volume 10.1 fL (9.4-12.3); Monocytes Absolute Auto 0.7 X10*3/uL (0.1-1.2); Monocytes Percent Auto 6.9 % (2-11); Neutrophils Absolute Auto 4.5 x10*3/uL (2.0-8.3); Platelet Count 400 X10*3/uL (160-400); Red Blood Count 4.15 X10*6/uL (4.20-5.50); Red Cell Distribution Width 15.1 % (11.0-16.0); White Blood Count 9.5 X10*3/uL (4.8-10.8)
[2023-05-02 08:47] LABS: Estimated Average Glucose 160 mg/dL; Hemoglobin A1c % 7.2 % (<6.0)
[2023-05-02 09:16] LABS: Alanine Aminotransferase 10 U/L (0-31); Albumin Level 4.2 g/dL (3.5-5.0); Alkaline Phosphatase 51 U/L (39-117); Anion Gap 15 (12-20); Aspartate Amino Transferase 16 U/L (5-31); Bilirubin Total 0.3 mg/dL (0.0-1.0); Blood Urea Nitrogen 15 mg/dL (9-16); Calcium 9.5 mg/dL (8.4-10.2); Carbon Dioxide 22 mmol/L (22-29); Chloride 107 mmol/L (96-108); Cholesterol 174 mg/dL (<200); Estimated Glomerular Filt Rate > 60; Glucose Random 163 mg/dL (60-115); HDL Cholesterol 42 mg/dL (>40); LDL Cholesterol Calculated 99 mg/dL (<100); Sodium 140 mmol/L (135-145); Total Protein 7.4 g/dL (6.5-8.0); Triglycerides 169 mg/dL (<150); Vitamin D 25-OH Total 35.8 ng/mL (>30)
== END 2023-05-02 08:09 | disposition home or self-care (01) ==
LOC: HO.LAB 08:08
PROVIDERS: PCP Internal Medicine; Visit Provider Internal Medicine
DX: E11.65 Type 2 diabetes mellitus with hyperglycemia (principal); E78.00 Pure hypercholesterolemia, unspecified; Z79.4 Long term (current) use of insulin; E55.9 Vitamin D deficiency, unspecified
CPT/HCPCS: 36415; 80053; 80061; 82306; 83036; 85025

== ENCOUNTER 2023-05-09 10:02 | Outpatient (AMB) | payer OTHER, SELFPAY ==
[2023-05-09 10:03] VITALS: BP 108/66; PULSE 97; O2SAT 98; BMI 25.8
--- NOTE | 2023-05-09 10:03 | MHC.PC.OV ---
Vital Signs 05/09/23 10:03 Height 5 ft 2 in Weight 141 lb 0.4 oz BMI 25.8 BP 108/66 Blood Pressure Location Rt brachial Position Sitting Pulse 97 Pulse Source Pulse Oximeter Pulse Oximetry (%) 98 Oxygen Delivery Method Room Air Intake Visit Reasons: DM Intake Note: Patient is here to follow up Pt Skilled Required: No Allergies egg Allergy (Mild, Verified 05/09/23 10:24) Nausea and Vomiting Tobacco use date assessed: 05/09/23 Fall risk assessment: No Falls in past year Last assessed Fall Risk: 05/09/23 Dental Screening Dental Screen Date: 05/09/23 Did you have a dental visit in the last 12 months?: Yes Did you have a dental problem in the last 6 months where you did not have access to dental care?: No Was dental information given to patient?: Patient has dentist HPI DM HPI Details 68-year-old female with uncontrolled diabetes mellitus hypercholesterolemia GERD generalized anxiety disorder and migraine coming in for follow-up. Last seen in January 2023. Patient is requesting for a continues glucose monitor for insurance to cover patient's colonoscopy is up-to-date mammogram is due this coming month and bone density done in May 2021. 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 Hyperlipidemia LDL goal <100 Diabetic neuropathy Esophagitis Anemia Surgical History History of cataract surgery Hx of mammogram H/O esophagogastroduodenoscopy History of colonoscopy Hx of cholecystectomy Family History (Updated 01/18/23 @ 08:55 by Mercedez Roberto CMA) Father Diabetes Mother Diabetes Social History (Updated 08/12/22 @ 12:02 by Presley Perez MD) Household Members: None Housing: Apartment Alcohol intake: never Patient Tobacco Use Status: Former Tobacco user Tobacco use type: Cigarette Cigarettes Per Day: 5 Years Smoked: quit 2021 e-Cigarette/Vaping Use: Never Used Second Hand Smoke Exposure: No service: No Current occupational status: retired Current occupation: left handed Cognitive needs: No Hearing needs: No Vision needs: Yes Questionnaire Thrive Questionnaire Date Thrive assessed: 08/12/22 AUDIT C Alcohol Use Questionnaire (AUDIT-C) 1. How often do you have a drink containing alcohol?: Never 3. How often do you have six or more drinks on one occasion?: Never Total Score: 0 WILLA-7 AMB Questionnaire WILLA-7 Date WILLA - 7 assessed: 08/12/22 Source: Developed by Drs. Keith Morrison, Alka Hawkins, Sonny Geiger and colleagues, with an educational mray from [employer]. Physical exam (Primary Care) Vital Signs: Last Vital Signs Pulse 97 05/09/23 10:03 BP 108/66 05/09/23 10:03 Pulse Ox 98 05/09/23 10:03 Oxygen Delivery Method Room Air 05/09/23 10:03 BMI result Body Mass Index 25.8 Tobacco/Smoking Status: Tobacco use Status Tobacco use date assessed 05/09/23 05/09/23 10:04 Patient Tobacco Use Status Former Tobacco user 05/09/23 10:04 Tobacco use type Cigarette 05/09/23 10:04 e-Cigarette/Vaping Use Never Used 05/09/23 10:04 Thrive Assessment: Date of Thrive Assessment Date Thrive assessed 08/12/22 05/09/23 10:04 Const General: alert; No acute distress Eyes Conjunctivae: conjunctivae normal Resp Auscultation: clear to auscultation bilaterally Cardio Rate: regular rate Rhythm: regular rhythm GI Inspection: Yes normal to inspection Extrem General: Yes normal to inspection and No edema Assessment and Plan Assessment & Plan (1) Type 2 diabetes mellitus with hyperglycemia, with long-term current use of insulin: Comment: Eye Dr. 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 Hemoglobin A1c goal of less than 7.0. Patient is on insulin NovoLog 612 units according to sliding scale Lantus at 257 units once a day metformin 1000 mg twice a day and Januvia 100 mg once a day patient has the continues glucose monitor. Patient really needs this to dose for the Insulin as dangers of hypoglycemia (2) Hyperlipidemia LDL goal <100: Comment: Dr. Blevins Code(s): E78.5 - Hyperlipidemia, unspecified Plan: Avoid fried foods, chicken skin, eggs, butter margarine, pastries and meat. Be it pork or beef they have a lot of cholesterol LDL goal of less than 100 and triglyceride of less than 1 for April 2023 last blood work patient is on fenofibrate 145 mg once a day and atorvastatin 20 mg once a day (3) Generalized anxiety disorder: Comment: decline counselling 01/2022 Code(s): F41.1 - Generalized anxiety disorder Plan: Continue with therapy with Lexapro (4) Osteoporosis: Code(s): M81.0 - Age-related osteoporosis without current pathological fracture Plan: Reminded about bone density next month (5) GERD with esophagitis: Code(s): K21.00 - Gastro-esophageal reflux disease with esophagitis, without bleeding Plan: Avoid the foods that causes that usually spicy foods, tomato products, juices, coffee, soda and foods that your sensitive to. After eating do not lie down, allow 3-4 hours before in lie down. And keep the head of bed above 30 degrees to avoid the acid from going up. 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
== END 2023-05-09 11:05 | disposition home or self-care (01) ==
PROVIDERS: PCP Internal Medicine; Visit Provider Internal Medicine
DX: E11.65 Type 2 diabetes mellitus with hyperglycemia (principal); Z79.4 Long term (current) use of insulin; E78.5 Hyperlipidemia, unspecified; F41.1 Generalized anxiety disorder; M81.0 Age-related osteoporosis without current pathological fracture; K21.00 Gastro-esophageal reflux disease with esophagitis, without bleeding; R03.0 Elevated blood-pressure reading, without diagnosis of hypertension
CPT/HCPCS: 99214

== ENCOUNTER 2023-08-22 08:21 | Outpatient (AMB) | payer OTHER, SELFPAY ==
--- NOTE | 2023-08-22 08:32 | A.OFFPC_ITS ---
Vital Signs 08/22/23 08:35 Height 5 ft 2 in Weight 140 lb 0.67 oz BMI 25.6 BP 128/64 Blood Pressure Location Lt brachial Position Sitting Pulse 74 Pulse Source Pulse Oximeter Pulse Oximetry (%) 97 Oxygen Delivery Method Room Air Intake Visit Reasons: Overdue follow up DM Allergies egg Allergy (Mild, Verified 08/22/23 08:37) Nausea and Vomiting Tobacco use date assessed: 08/22/23 Fall risk assessment: No Falls in past year Last assessed Fall Risk: 08/22/23 Dental Screening Dental Screen Date: 08/22/23 Did you have a dental visit in the last 12 months?: Yes Did you have a dental problem in the last 6 months where you did not have access to dental care?: No Was dental information given to patient?: Patient has dentist HPI Overdue follow up DM HPI Details 68-year-old female with uncontrolled marin betes mellitus hypercholesterolemia GERD generalized anxiety disorder osteoporosis coming in for follow-up. Last seen in April 2023 noted to have an elevated blood pressure. Patient's colonoscopy is up-to-date mammogram is up-to-date bone density is up-to-date. 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 Hyperlipidemia LDL goal <100 Diabetic neuropathy Esophagitis Anemia Surgical History History of cataract surgery Hx of mammogram H/O esophagogastroduodenoscopy History of colonoscopy Hx of cholecystectomy Family History (Updated 01/18/23 @ 08:55 by Mercedez Roberto CMA) Father Diabetes Mother Diabetes Social History (Updated 08/12/22 @ 12:02 by Presley Perez MD) Household Members: None Housing: Apartment Alcohol intake: never Patient Tobacco Use Status: Former Tobacco user Tobacco use type: Cigarette Cigarettes Per Day: 5 Years Smoked: quit 2021 e-Cigarette/Vaping Use: Never Used Second Hand Smoke Exposure: No service: No Current occupational status: retired Current occupation: left handed Cognitive needs: No Hearing needs: No Vision needs: Yes Questionnaire Thrive Questionnaire Date Thrive assessed: 08/12/22 AUDIT C Alcohol Use Questionnaire (AUDIT-C) 1. How often do you have a drink containing alcohol?: Never 3. How often do you have six or more drinks on one occasion?: Never Total Score: 0 WILLA-7 AMB Questionnaire WILLA-7 Date WILLA - 7 assessed: 08/12/22 Source: Developed by Drs. Keith Morrison, Alka Hawkins, Sonny Geiger and colleagues, with an educational mary from [employer]. Physical exam (Primary Care) Vital Signs: Last Vital Signs Pulse 74 08/22/23 08:35 BP 128/64 08/22/23 08:35 Pulse Ox 97 08/22/23 08:35 Oxygen Delivery Method Room Air 08/22/23 08:35 BMI result Body Mass Index 25.6 Tobacco/Smoking Status: Tobacco use Status Tobacco use date assessed 08/22/23 08/22/23 08:40 Patient Tobacco Use Status Former Tobacco user 08/22/23 08:32 Tobacco use type Cigarette 08/22/23 08:32 e-Cigarette/Vaping Use Never Used 08/22/23 08:32 Thrive Assessment: Date of Thrive Assessment Date Thrive assessed 08/12/22 08/22/23 08:32 Const General: alert; No acute distress Eyes Conjunctivae: conjunctivae normal Resp Auscultation: clear to auscultation bilaterally Cardio Rate: regular rate Rhythm: regular rhythm GI Inspection: Yes normal to inspection Extrem General: Yes normal to inspection and No edema Results AMB Hemoglobin A1c AMB Hemoglobin A1c 7.6 % Last Edit by SHASHANK Almendarez on 08/22/23 08:44 Results Reviewed Results Reviewed: Laboratory Last Values Hgb A1c (Clinic) 7.6 % (4.0-6.0) H 08/22/23 08:33 Assessment and Plan Assessment & Plan (1) Type 2 diabetes mellitus with hyperglycemia, with long-term current use of insulin: Comment: Eye Dr. 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 Hemoglobin A1c goal of less than 7.0 patient presently on Lantus 27 units Humalog metformin is a 1000 mg twice a day and Januvia 100 mg once a day (2) Hyperlipidemia LDL goal <100: Comment: Dr. Bleivns Code(s): E78.5 - Hyperlipidemia, unspecified Plan: Avoid fried foods, chicken skin, eggs, butter margarine, pastries and meat. Be it pork or beef they have a lot of cholesterol LDL goal of less than 100 patient on fenofibrate and atorvastatin 20 mg once a day (3) GERD with esophagitis: Code(s): K21.00 - Gastro-esophageal reflux disease with esophagitis, without bleeding Plan: Avoid the foods that causes that usually spicy foods, tomato products, juices, coffee, soda and foods that your sensitive to. After eating do not lie down, allow 3-4 hours before in lie down. And keep the head of bed above 30 degrees to avoid the acid from going up. (4) Osteopenia: Code(s): M85.80 - Other specified disorders of bone density and structure, unspecified site Plan: Reminded about bone density (5) Breast cancer screening by mammogram: Code(s): Z12.31 - Encounter for screening mammogram for malignant neoplasm of breast Plan: Reminded about mammogram (6) Blood pressure elevated without history of HTN: Code(s): R03.0 - Elevated blood-pressure reading, without diagnosis of hypertension Plan: Blood pressure is good Orders: Orders AMB Hemoglobin A1c Today E11.65 - Type 2 diabetes mellitus with hyperglycemia, Z79.4 - roasterman (current) use of insulin MM tomosynthesis screening BI Today Z12.31 - Encounter for screening mammogram f or malignant neoplasm of breast XR DEXA axial skeleton Today M81.0 - Age-related osteoporosis without current pathological fracture, M85.80 - Other specified disorders of bone density and structure, unspecified site Medications: Refilled insulin lispro (Humalog KwikPen (U-100) Insulin) or as directed 15 mL 3RF E11.65 - Type 2 diabetes mellitus with hyperglycemia, Z79.4 - FPC (current) use of insulin Coding Level of Care Code Est Pt Level 4 (32883) Diagnoses Type 2 diabetes mellitus with hyperglycemia, with long-term current use of insulin E11.65; Z79.4 Hyperlipidemia LDL goal <100 E78.5 GERD with esophagitis K21.00 Osteopenia M85.80 Breast cancer screening by mammogram Z12.31 Blood pressure elevated without history of HTN R03.0
[2023-08-22 08:35] VITALS: BP 128/64; PULSE 74; O2SAT 97; BMI 25.6
== END 2023-08-22 09:08 | disposition home or self-care (01) ==
PROVIDERS: PCP Internal Medicine; Visit Provider Internal Medicine
DX: E11.65 Type 2 diabetes mellitus with hyperglycemia (principal); Z79.4 Long term (current) use of insulin; E78.5 Hyperlipidemia, unspecified; K21.00 Gastro-esophageal reflux disease with esophagitis, without bleeding; M85.80 Other specified disorders of bone density and structure, unspecified site; Z12.31 Encounter for screening mammogram for malignant neoplasm of breast; R03.0 Elevated blood-pressure reading, without diagnosis of hypertension
CPT/HCPCS: 83036; 99214

== ENCOUNTER 2023-09-26 12:46 | Outpatient (REF) | payer OTHER, SELFPAY ==
--- NOTE | ~2023-09-26 | MM_ITS ---
EXAMINATION: MM DIAGNOSTIC DIGITAL BREAST TOMOSYNTHESIS, BILATERAL CLINICAL INFORMATION: Follow-up left breast calcifications anterior slightly lateral left breast. Patient also due for bilateral screening. COMPARISON: Mammography: 06/02/2022, 11/25/2021, 05/28/2021, 05/25/2021 (BI-RADS 0), and 09/12/2019. TECHNIQUE: Digital breast tomosynthesis is performed in both the craniocaudal and mediolateral oblique views along with computer-aided detection (CAD). Synthesized 2D images are generated from the tomosynthesis. In addition to standard views, 2-D spot magnification left CC and ML views were obtained. FINDINGS: There are scattered areas of fibroglandular density (ACR BI-RADS breast composition Category b). Left breast anterior calcifications have coalesced into course, rounded benign calcifications which appear dystrophic and benign. No further follow-up recommended. There are stable dystrophic appearing calcifications in the slightly lower medial far posterior left breast, as well as a few scattered secretory calcifications. In the right breast, there are numerous oil cysts in the retroareolar region which are calcified. There are a few scattered secretory calcifications. There are no suspicious calcifications. A focal parenchymal asymmetry in the 12:00 axis of the right breast posterior one third is unchanged. Left breast parenchyma is unchanged in pattern. There are no suspicious masses or areas of architectural distortion in either breast. MM/MM tomosynthesis diagnostic BI IMPRESSION: There are no findings suspicious for malignancy in either breast. Previously seen calcifications in the anterior retroareolar left breast have coalesced into dystrophic appearing benign calcifications. No further follow-up deemed necessary. Other calcifications are also stable and appear dystrophic. Recommend the patient resume annual bilateral screening in one year. ASSESSMENT: BI-RADS BI-RADS 2 - Benign Findings RECOMMENDATION: 1 year F/U Results were provided to the patient at time of visit by the technologist. This patient's information was entered into a reminder system with a target due date for their next mammogram.
--- NOTE | ~2023-09-26 | MM_ITS ---
EXAMINATION: BONE DENSITOMETRY CLINICAL INDICATION: Age-related osteoporosis without current pathological fracture. COMPARISON: Baseline BD dated 05/25/2021. TECHNIQUE: Using a OpenX DXA System (software version: 13.1) manufactured by [employer], dual-energy x-ray absorptiometry was performed of the lumbar spine and left hip. The images are of good technical quality. Summary results are attached. FINDINGS: LEFT FEMUR, NECK: Current: BMD 0.756 g/cm2, Z-score -0.4, T-score -2.0, osteopenia. Baseline: BMD 0.714 g/cm2. LEFT FEMUR, TOTAL: Current: BMD 0.812 g/cm2, Z-score -0.1, T-score -1.6, osteopenia, 0.0% change from baseline (<5% change is not significant). Baseline: BMD 0.812 g/cm2. AP SPINE L1-L4: Current: BMD 0.942 g/cm2, Z-score -0.3, T-score -2.0, osteopenia, 5.1% increase from baseline (<5% change is not significant). Baseline: BMD 0.896 g/cm2. IDENTIFIED RISK FACTORS: Menopause, low calcium intake, osteoporosis. HISTORY OF FRACTURE: None listed. MEDICATIONS: Vitamin D. MM/XR DEXA axial skeleton IMPRESSION: 1. DIAGNOSIS: Osteopenia based on the lowest T-score value of -2.0 in the femur neck and lumbar spine applying World Health Organization criteria. 2. 10-YEAR FRACTURE RISK PREDICTION, FRAX: Major osteoporotic fracture (clinical spine, forearm, hip or shoulder) 6.8%. Hip fracture 1.2%. 3. Treatment Recommendations: NOF guidelines recommend consideration for treatment in postmenopausal women and men age 50 and older presenting with the following: -A hip or vertebral (clinical or morphometric) fracture. -T-score less than or equal to -2.5 at the femoral neck or spine after appropriate evaluation to exclude secondary causes. -Low bone mass at the hip or spine and a 10-year fracture probability by FRAX of greater than or equal to 3% for hip fracture or greater than or equal to 20% for major osteoporotic fracture based on the [place] adapted WHO algorithm. 4. Other Recommendations: All treatment decisions require clinical judgment and consideration of individual patient factors, including patient preferences, comorbidities, previous drug use, risk factors not captured in the FRAX model (e.g. frailty, falls, vitamin D deficiency, increased bone turnover, interval significant decline in bone density) and possible under or overestimation of fracture risk by FRAX. Additional medical evaluation for secondary cause of low bone mineral density may be appropriate. FUTURE SCAN RECOMMENDATION: People with diagnosed cases of osteoporosis or at high risk for fracture should have regular bone mineral density tests. For patients eligible for Medicare, routine testing is allowed once every 2 years. The testing frequency can be increased to one year for patients who have rapidly progressing disease, those who are receiving or discontinuing medical therapy to restore bone mass, or have additional risk factors.
== END 2023-09-26 12:47 | disposition home or self-care (01) ==
LOC: HO.MAMMO 12:46
PROVIDERS: PCP Internal Medicine; Visit Provider Internal Medicine
DX: M81.0 Age-related osteoporosis without current pathological fracture (principal); M85.80 Other specified disorders of bone density and structure, unspecified site; R92.1 Mammographic calcification found on diagnostic imaging of breast
CPT/HCPCS: 77062; 77066; 77080

== ENCOUNTER → 2023-09-26 13:30 | Outpatient (BNV) | payer OTHER, SELFPAY | PROVIDERS: PCP Internal Medicine; Visit Provider Radiology Diagnostic Radiology | DX: R92.1 Mammographic calcification found on diagnostic imaging of breast (principal) | CPT/HCPCS: 77066; G0279 ==

== ENCOUNTER 2023-11-22 08:25 | Outpatient (AMB) | payer OTHER, SELFPAY ==
[2023-11-22 08:28] VITALS: BP 136/72; PULSE 88; O2SAT 99; BMI 24.7
--- NOTE | 2023-11-22 08:28 | A.OFFPC_ITS ---
Vital Signs 11/22/23 08:28 Height 5 ft 2 in Weight 135 lb BMI 24.7 BP 136/72 Blood Pressure Location Lt brachial Position Sitting Pulse 88 Pulse Source Pulse Oximeter Pulse Oximetry (%) 99 Oxygen Delivery Method Room Air Intake Visit Reasons: DM Allergies egg Allergy (Mild, Verified 11/22/23 08:29) Nausea and Vomiting Medication List - Last Reconciled 11/22/23 by Presley Perez MD atorvastatin 20 mg PO BEDTIME BD Wendy 2nd Gen Pen Needle (pen needle, diabetic) 5 times a day NS blood pressure monitor (Blood Pressure Kit) As directed blood sugar diagnostic (FreeStyle Lite Strips) As directed three times a day blood-glucose meter (FreeStyle Lite Meter kit) As directed cholecalciferol (vitamin D3) 50 mcg PO DAILY 90 days [DIABETIC SHOEs As directed] escitalopram oxalate (Lexapro) 20 mg PO DAILY 90 days famotidine 20 mg PO DAILY 90 days fenofibrate nanocrystallized 145 mg PO DAILY 90 days flash glucose sensor (FreeStyle Adi 14 Day Sensor kit) As directed gabapentin 300 mg PO BID 90 days insulin glargine (Lantus Solostar U-100 Insulin) 27 units (0.27 mL) subcut DAILY insulin lispro (Humalog KwikPen (U-100) Insulin) subcutaneously Inject 4 times a day according to sliding scale; or as directed ketorolac 0.5% 0 drps ophthalmic (eye) lancets As directed lisinopril 5 mg PO DAILY metformin 1,000 mg PO BID 30 days mupirocin 2% 1 appl topical BID pen needle, diabetic As directed sitagliptin phosphate (Januvia) 100 mg PO DAILY 90 days sumatriptan succinate 50 mg PO .QD PRN Tobacco use date assessed: 08/22/23 Fall risk assessment: No Falls in past year Last assessed Fall Risk: 11/22/23 Dental Screening Dental Screen Date: 08/22/23 HPI DM HPI Details 68-year-old female with uncontrolled marin betes mellitus hypercholesterolemia GERD coming in for follow-up. Last seen in August 2023 noted have an elevated blood pressure at that time patient also had a mammogram done September 2023. 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 Hyperlipidemia LDL goal <100 Diabetic neuropathy Esophagitis Anemia Surgical History History of cataract surgery Hx of mammogram H/O esophagogastroduodenoscopy History of colonoscopy Hx of cholecystectomy Family History (Updated 01/18/23 @ 08:55 by Mercedez Roberto CMA) Father Diabetes Mother Diabetes Social History (Updated 08/12/22 @ 12:02 by Presley Perez MD) Household Members: None Housing: Apartment Alcohol intake: never Patient Tobacco Use Status: Former Tobacco user Tobacco use type: Cigarette Cigarettes Per Day: 5 Years Smoked: quit 2021 e-Cigarette/Vaping Use: Never Used Second Hand Smoke Exposure: No service: No Current occupational status: retired Current occupation: left handed Cognitive needs: No Hearing needs: No Vision needs: Yes Questionnaire PHQ-9 Over the last 2 weeks, how often have you been bothered by any of the following problems? 1. Little interest or pleasure in doing things: not at all 2. Feeling down, depressed, or hopeless: not at all 3. Trouble falling or staying asleep, or sleeping too much: not at all 4. Feeling tired or having little energy: not at all 5. Poor appetite or overeating: not at all 6. Feeling bad about yourself - or that you are a failure or have let yourself or your family down: not at all 7. Trouble concentrating on things, such as reading the newspaper or watching television: not at all 8. Moving or speaking so slowly that other people could have noticed. Or the opposite - being so fidgety or restless that you have been moving around a lot more than usual: not at all 9. Thoughts that you would be better off or of hurting yourself in some way: not at all Total score: 0 Depression Screening Interpretation: Negative Depression Screening Done: Yes Source: Developed by Drs. Keith Morrison, Alka Hawkins, Sonny Geiger and colleagues, with an educational mary from [employer]. Thrive Questionnaire Date Thrive assessed: 11/22/23 I am a: Patient What is your living situation today?: I have a steady place to live Within the past 12 months, did the food you bought not last and you didn't have the money to get more?: Never true Within the past 12 months, did you worry whether your food would run out before you got money to buy more?: Never true Do you have trouble paying for medicines?: No Do you have trouble getting transportation to medical appointments?: No Do you have trouble paying your heating and electricity bill?: No Do you have trouble taking care of your child, family member or friend?: No Do you have trouble with day-to-day activities such as bathing, preparing meals, shopping, managing finances, etc.?: No Are you currently unemployed and looking for a job?: No Are you interested in more education?: No Currently or been in a relationship where the following occur: no concerns reported THRIVE Score: 0 AUDIT C Alcohol Use Questionnaire (AUDIT-C) 1. How often do you have a drink containing alcohol?: Never 3. How often do you have six or more drinks on one occasion?: Never Total Score: 0 WILLA-7 AMB Questionnaire WILLA-7 Date WILLA - 7 assessed: 11/22/23 Feeling nervous, anxious, or on edge: 0 = Not at all Not being able to stop or control worryin = Not at all Worrying too much about different things: 0 = Not at all Trouble relaxin = Not at all Being so restless that it is hard to sit still: 0 = Not at all Becoming easily annoyed or irritable: 0 = Not at all Feeling afraid as if something awful might happen: 0 = Not at all Total WILLA-7 score (0-4 normal; 5-9 mild; 10-14 moderate; 15-21 severe): 0 Source: Developed by Drs. Keith Morrison, Alka Hawkins, Sonny Geiger and colleagues, with an educational mary from [employer]. Physical exam (Primary Care) Vital Signs: Last Vital Signs Pulse 88 11/22/23 08:28 BP 136/72 11/22/23 08:28 Pulse Ox 99 11/22/23 08:28 Oxygen Delivery Method Room Air 05/08/24 08:28 BMI result Body Mass Index 24.7 Tobacco/Smoking Status: Tobacco use Status Tobacco use date assessed 08/22/23 11/22/23 08:34 Patient Tobacco Use Status Former Tobacco user 11/22/23 08:34 Tobacco use type Cigarette 11/22/23 08:34 e-Cigarette/Vaping Use Never Used 11/22/23 08:34 PHQ-9: PHQ-9 Score PHQ-9: Total score 0 11/22/23 08:34 Depression Screening Interpretation: Negative Thrive Assessment: Date of Thrive Assessment Date Thrive assessed 11/22/23 11/22/23 08:34 Currently or been in a relationship where the following occur: no concerns reported Const General: alert; No acute distress Eyes Conjunctivae: conjunctivae normal Resp Auscultation: clear to auscultation bilaterally Cardio Rate: regular rate Rhythm: regular rhythm GI Inspection: Yes normal to inspection Extrem General: Yes normal to inspection and No edema Assessment and Plan Assessment & Plan (1) Type 2 diabetes mellitus with hyperglycemia, with long-term current use of insulin: Comment: Eye Dr. 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 Hemoglobin A1c goal of less than 7.0 presently on Lantus and Humalog metformin and Januvia. declined new med noted episode of labile BS (2) GERD with esophagitis: Code(s): K21.00 - Gastro-esophageal reflux disease with esophagitis, without bleeding Plan: Avoid the foods that causes that usually spicy foods, tomato products, juices, coffee, soda and foods that your sensitive to. After eating do not lie down, allow 3-4 hours before in lie down. And keep the head of bed above 30 degrees to avoid the acid from going up. (3) Osteopenia: Comment: September 2023 Code(s): M85.80 - Other specified disorders of bone density and structure, unspecified site Plan: Bone density done September 2023 no significant change (4) Hyperlipidemia LDL goal <100: Comment: Dr. Blevins Code(s): E78.5 - Hyperlipidemia, unspecified Plan: Avoid fried foods, chicken skin, eggs, butter margarine, pastries and meat. Be it pork or beef they have a lot of cholesterol LDL goal of less than 100 and triglyceride of less than 150 on atorvastatin last blood work was done April 2023 (5) Generalized anxiety disorder: Comment: decline counselling 01/2022 Code(s): F41.1 - Generalized anxiety disorder Plan: Patient on gabapentin and stable (6) Blood pressure elevated without history of HTN: Comment: Controlled blood pressure Code(s): R03.0 - Elevated blood-pressure reading, without diagnosis of hypertension Plan: Blood pressure is controlled Orders: Orders Hemoglobin A1c 3 Months E11.65 - Type 2 diabetes mellitus with hyperglycemia, Z79.4 - [facility] (current) use of insulin Comprehensive Met. Panel 3 Months E11.65 - Type 2 diabetes mellitus with hyperglycemia, Z79.4 - [facility] (current) use of insulin Lipid Panel 3 Months E11.65 - Type 2 diabetes mellitus with hyperglycemia, E78.00 - Pure hypercholesterolemia, unspecified, Z79.4 - [facility] (current) use of insulin Medications: New mupirocin 2% 1 appl topical BID 15 grams 0RF Coding Level of Care Code Est Pt Level 4 (42249) Diagnoses Type 2 diabetes mellitus with hyperglycemia, with long-term current use of insulin E11.65; Z79.4 GERD with esophagitis K21.00 Osteopenia M85.80 Hyperlipidemia LDL goal <100 E78.5 Generalized anxiety disorder F41.1 Blood pressure elevated without history of HTN R03.0
== END 2023-11-22 08:56 | disposition home or self-care (01) ==
PROVIDERS: PCP Internal Medicine; Visit Provider Internal Medicine
DX: E11.65 Type 2 diabetes mellitus with hyperglycemia (principal); Z79.4 Long term (current) use of insulin; K21.00 Gastro-esophageal reflux disease with esophagitis, without bleeding; M85.80 Other specified disorders of bone density and structure, unspecified site; E78.5 Hyperlipidemia, unspecified; F41.1 Generalized anxiety disorder; R03.0 Elevated blood-pressure reading, without diagnosis of hypertension
CPT/HCPCS: 99214

== ENCOUNTER 2024-04-05 08:05 | Outpatient (REF) | payer OTHER, SELFPAY ==
[2024-04-05 09:33] LABS: Alanine Aminotransferase 12 U/L (0-31); Albumin Level 4.4 g/dL (3.5-5.0); Alkaline Phosphatase 47 U/L (39-117); Anion Gap 12 (12-20); Aspartate Amino Transferase 12 U/L (5-31); Bilirubin Total 0.2 mg/dL (0.0-1.0); Blood Urea Nitrogen 22 mg/dL (9-16); Calcium 10.1 mg/dL (8.4-10.2); Carbon Dioxide 27 mmol/L (22-29); Chloride 108 mmol/L (96-108); Cholesterol 181 mg/dL (<200); Estimated Glomerular Filt Rate > 60; Glucose Random 95 mg/dL (60-115); HDL Cholesterol 53 mg/dL (>40); LDL Cholesterol Calculated 105 mg/dL (<100); Potassium 4.6 mmol/L (3.3-5.1); Sodium 142 mmol/L (135-145); Total Protein 7.6 g/dL (6.5-8.0); Triglycerides 116 mg/dL (<150)
[2024-04-05 10:37] LABS: Estimated Average Glucose 151 mg/dL; Hemoglobin A1c % 6.9 % (<6.0)
== END 2024-04-05 08:06 | disposition home or self-care (01) ==
LOC: HO.LAB 08:05
PROVIDERS: PCP Internal Medicine; Visit Provider Internal Medicine
DX: E11.65 Type 2 diabetes mellitus with hyperglycemia (principal); E78.00 Pure hypercholesterolemia, unspecified; Z79.4 Long term (current) use of insulin
CPT/HCPCS: 36415; 80053; 80061; 83036

== ENCOUNTER 2024-04-12 09:57 | Outpatient (AMB) | payer OTHER, SELFPAY ==
--- NOTE | 2024-04-12 10:24 | A.OFFPC_ITS ---
Vital Signs 04/12/24 10:26 Height 5 ft 2 in Weight 134 lb 4 oz BMI 24.6 BP 100/64 Blood Pressure Location Lt brachial Position Sitting Pulse 75 Pulse Source Pulse Oximeter Pulse Oximetry (%) 96 Oxygen Delivery Method Room Air Intake Visit Reasons: 3 Month Follow Up Intake Note: Patient is here to follow up on HTN, DM, Hypercholesterolemia. Radiologic Technology Teacher Required: No Sterilization Technician: Not Required per policy Accompanied by: Self / Same As Patient Allergies egg Allergy (Mild, Verified 04/12/24 10:25) Nausea and Vomiting Tobacco use date assessed: 04/12/24 Fall risk assessment: No Falls in past year Last assessed Fall Risk: 04/12/24 Dental Screening Dental Screen Date: 08/22/23 HPI 3 Month Follow Up HPI Details 68-year-old female with uncontrolled marin betes mellitus GERD hypercholesterolemia generalized anxiety disorder coming in for follow-up. Last seen in 12/04/2023. 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 Hyperlipidemia LDL goal <100 Diabetic neuropathy Esophagitis Anemia Surgical History History of cataract surgery Hx of mammogram H/O esophagogastroduodenoscopy History of colonoscopy Hx of cholecystectomy Family History Father Diabetes Mother Diabetes Social History Household Members: None Housing: Apartment Alcohol intake: never Patient Tobacco Use Status: Former Tobacco user Tobacco use type: Cigarette Cigarettes Per Day: 5 Years Smoked: quit 2021 e-Cigarette/Vaping Use: Never Used Second Hand Smoke Exposure: No service: No Current occupational status: retired Current occupation: left handed Cognitive needs: No Hearing needs: No Vision needs: Yes Questionnaire Thrive Questionnaire Date Thrive assessed: 11/22/23 Are you currently unemployed and looking for a job?: No WILLA-7 AMB Questionnaire WILLA-7 Date WILLA - 7 assessed: 11/22/23 Source: Developed by Drs. Keith Morrison, Alka Hawkins, Sonny Geiger and colleagues, with an educational mary from [employer]. Physical exam (Primary Care) Vital Signs: Last Vital Signs Pulse 75 04/12/24 10:26 BP 100/64 04/12/24 10:26 Pulse Ox 96 04/12/24 10:26 Oxygen Delivery Method Room Air 04/12/24 10:26 BMI result Body Mass Index 24.6 Tobacco/Smoking Status: Tobacco use Status Tobacco use date assessed 04/12/24 04/12/24 10:26 Patient Tobacco Use Status Former Tobacco user 04/12/24 10:26 Tobacco use type Cigarette 04/12/24 10:26 e-Cigarette/Vaping Use Never Used 04/12/24 10:26 Thrive Assessment: Date of Thrive Assessment Date Thrive assessed 11/22/23 04/12/24 10:26 Const General: alert; No acute distress Eyes Conjunctivae: conjunctivae normal Resp Auscultation: clear to auscultation bilaterally Cardio Rate: regular rate Rhythm: regular rhythm GI Inspection: Yes normal to inspection Extrem General: Yes normal to inspection and No edema Assessment and Plan Assessment & Plan (1) Type 2 diabetes mellitus with hyperglycemia, with long-term current use of insulin: Comment: Eye Dr. Blevins 2021, 08/2023 Code(s): E11.65 - Type 2 diabetes mellitus with hyperglycemia; Z79.4 - [facility] (current) use of insulin Plan: Decrease the amount of carbohydrate intake, pasta, bread, rice and potatoes are all sugar and that is aside from all the sweet stuff, remember that fruits are good but they are Sweet also. Hemoglobin A1c goal of less than 7.0 (2) Hyperlipidemia LDL goal <100: Comment: Dr. Blevins Code(s): E78.5 - Hyperlipidemia, unspecified Plan: Avoid fried foods, chicken skin, eggs, butter margarine, pastries and meat. Be it pork or beef they have a lot of cholesterol LDL goal of less than 100 and triglyceride of less than 150 (3) Generalized anxiety disorder: Comment: decline counselling 01/2022 Code(s): F41.1 - Generalized anxiety disorder Plan: Continue with present medication Orders: Orders Microalbumin, Random (w Creat) Today E11.65 - Type 2 diabetes mellitus with hyperglycemia, Z79.4 - [facility] (current) use of insulin Creatinine Urine Today E11.65 - Type 2 diabetes mellitus with hyperglycemia, Z79.4 - intermediate manager (current) use of insulin Coding Level of Care Code Est Pt Level 4 (37363) Diagnoses Type 2 diabetes mellitus with hyperglycemia, with long-term current use of insulin E11.65; Z79.4 Hyperlipidemia LDL goal <100 E78.5 Generalized anxiety disorder F41.1
[2024-04-12 10:26] VITALS: BP 100/64; PULSE 75; O2SAT 96; BMI 24.6
== END 2024-04-12 11:16 | disposition home or self-care (01) ==
PROVIDERS: PCP Internal Medicine; Visit Provider Internal Medicine
DX: E11.65 Type 2 diabetes mellitus with hyperglycemia (principal); Z79.4 Long term (current) use of insulin; E78.5 Hyperlipidemia, unspecified; F41.1 Generalized anxiety disorder

== ENCOUNTER → 2024-04-12 09:57 | Outpatient (BNVA) | payer OTHER, SELFPAY | PROVIDERS: PCP Internal Medicine; Visit Provider Internal Medicine | DX: E11.65 Type 2 diabetes mellitus with hyperglycemia (principal); E78.5 Hyperlipidemia, unspecified; F41.1 Generalized anxiety disorder; Z79.4 Long term (current) use of insulin | CPT/HCPCS: 99212 ==

== ENCOUNTER 2024-05-13 08:53 | Outpatient (AMB) | payer OTHER, SELFPAY ==
[2024-05-13 08:57] VITALS: BP 144/62; PULSE 67; O2SAT 98; BMI 24.3
--- NOTE | 2024-05-13 08:57 | A.OFFPC_ITS ---
Vital Signs 05/13/24 08:57 Height 5 ft 2 in Weight 133 lb BMI 24.3 BP 144/62 H Blood Pressure Location Lt brachial Position Sitting Pulse 67 Pulse Source Pulse Oximeter Pulse Oximetry (%) 98 Oxygen Delivery Method Room Air Intake Visit Reasons: pneumonia to order for a follow-up x-ray Biomedical Analytical Scientist Required: No Accompanied by: Self / Same As Patient Allergies amoxicillin Allergy (Intermediate, Verified 05/13/24 09:25) Rash egg Allergy (Mild, Verified 05/13/24 09:25) Nausea and Vomiting Medication List - Last Reconciled 05/13/24 by Patricia Guerrero PA-C atorvastatin 20 mg PO BEDTIME BD Wendy 2nd Gen Pen Needle (pen needle, diabetic) 5 times a day NS blood pressure monitor (Blood Pressure Kit) As directed blood sugar diagnostic (FreeStyle Lite Strips) As directed three times a day blood-glucose meter (FreeStyle Lite Meter kit) As directed cholecalciferol (vitamin D3) 50 mcg PO DAILY 90 days [DIABETIC SHOEs As directed] escitalopram oxalate (Lexapro) 20 mg PO DAILY 90 days famotidine 20 mg PO DAILY 90 days fenofibrate nanocrystallized 145 mg PO DAILY 90 days flash glucose sensor (FreeStyle Adi 14 Day Sensor kit) As directed gabapentin 300 mg PO BID 90 days insulin glargine (Lantus Solostar U-100 Insulin) 27 units (0.27 mL) subcut DAILY insulin lispro (Humalog KwikPen (U-100) Insulin) subcutaneously Inject 4 times a day according to sliding scale; or as directed ketorolac 0.5% 0 drps ophthalmic (eye) lancets As directed lisinopril 5 mg PO DAILY metformin 1,000 mg PO BID 30 days mupirocin 2% 1 appl topical BID pen needle, diabetic (Unifine Pentips) USE FOUR TIMES A DAY DIRECTED (BULK) sitagliptin phosphate (Januvia) 100 mg PO DAILY 90 days sumatriptan succinate 50 mg PO .QD PRN Tobacco use date assessed: 04/12/24 Fall risk assessment: No Falls in past year Last assessed Fall Risk: 05/13/24 Dental Screening Dental Screen Date: 08/22/23 HPI pneumonia to order for a follow-up x-ray HPI Details 68-year-old female with uncontrolled marin betes mellitus, GERD, hypercholesterolemia, generalized anxiety disorder last seen March 2024 coming in for acute problem. Patient states she was seen by a healthcare provider through [facility] diagnosed with pneumonia on exam and did not have chest x-ray initially done. She was treated with course of amoxicillin which did give her a pretty severe itchy rash on her face and scalp which has resolved at this time. She also mentioned she was hav ing diarrhea with the antibiotics and was lightheaded and fatigued but has been drinking plenty of water with electrolytes. The pain in her chest has improved but she still does have a cough without fever. 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 Hyperlipidemia LDL goal <100 Diabetic neuropathy Esophagitis Anemia Surgical History History of cataract surgery Hx of mammogram H/O esophagogastroduodenoscopy History of colonoscopy Hx of cholecystectomy Family History Father Diabetes Mother Diabetes Social History Household Members: None Housing: Apartment Alcohol intake: never Patient Tobacco Use Status: Former Tobacco user Tobacco use type: Cigarette Cigarettes Per Day: 5 Years Smoked: quit 2021 e-Cigarette/Vaping Use: Never Used Second Hand Smoke Exposure: No service: No Current occupational status: retired Current occupation: left handed Cognitive needs: No Hearing needs: No Vision needs: Yes Questionnaire Thrive Questionnaire Date Thrive assessed: 11/22/23 Are you currently unemployed and looking for a job?: No AUDIT C Alcohol Use Questionnaire (AUDIT-C) 1. How often do you have a drink containing alcohol?: Never 3. How often do you have six or more drinks on one occasion?: Never Total Score: 0 WILLA-7 AMB Questionnaire WILLA-7 Date WILLA - 7 assessed: 11/22/23 Source: Developed by Drs. Keith Morrison, Alka Hawkins, Sonny Geiger and colleagues, with an educational mary from [employer]. Review of Systems Const Denies body aches, Denies chills, Denies fever(s), Denies headache(s), Reports lethargy and Denies poor appetite Eyes Reports no additional complaints ENT Denies dizziness and Denies headache(s) Card Denies chest pain, Denies syncope, Denies edema, Denies irregular heart rhythm, Reports lightheadedness and Denies dyspnea Resp Reports cough, Denies hemoptysis, Denies excessive phlegm production and Denies dyspnea GI Denies abdominal pain, Reports diarrhea, Denies nausea and Denies vomiting Reports no additional complaints Musc Reports no additional complaints and Denies abnormal gait Skin/Breast Reports system reviewed and no additional complaints, except as documented Neuro Denies abnormal gait, Denies dizziness, Denies syncope and Denies headache(s) Psych Reports no additional complaints Physical exam (Primary Care) Vital Signs: Last Vital Signs Pulse 67 05/13/24 08:57 BP 144/62 H 05/13/24 08:57 Pulse Ox 98 05/13/24 08:57 Oxygen Delivery Method Room Air 05/13/24 08:57 BMI result Body Mass Index 24.3 Tobacco/Smoking Status: Tobacco use Status Tobacco use date assessed 04/12/24 05/13/24 08:58 Patient Tobacco Use Status Former Tobacco user 05/13/24 08:58 Tobacco use type Cigarette 05/13/24 08:58 e-Cigarette/Vaping Use Never Used 05/13/24 08:58 Thrive Assessment: Date of Thrive Assessment Date Thrive assessed 11/22/23 05/13/24 08:58 Const General: cooperative, healthy appearing, comfortable and no acute distress Orientation/consciousness: patient oriented x3 HENMT Head: Yes normocephalic Ears: hearing grossly normal bilaterally General nose exam: Normal external nose present Eyes General: appearance normal, both eyes and all related structures Conjunctivae: conjunctivae normal Neck Neck: Yes full ROM and Yes no lymphadenopathy Resp Effort & Inspection: normal respiratory effort Auscultation: clear to auscultation bilaterally, no crackles, no rales, no rhonchi and no wheezes Cardio Rate: regular rate Rhythm: regular rhythm Skin General skin exam: no rashes or lesions noted Neuro General: patient oriented x3 Gait exam (Neuro): Normal gait present Extrem General: Yes normal to inspection, Yes full ROM and No edema Psych Affect: normal affect Attitude: cooperative Insight: Good insight present (Psych) Judgement: Good judgement present (Psych) Coding Level of Care Code Est Pt Level 3 (82043) Diagnoses Cough R05.9 Assessment & Plan Assessment & Plan (1) Cough: Code(s): R05.9 - Cough, unspecified Category: Medical Plan: Ordered for chest x-ray for further evaluation of the cough and to ensure pneumonia has cleared. Lungs clear on exam. Advised patient to use o [id number] blood pressure safe cough suppressants as needed. Reviewed red flag symptoms and when to present for re-evaluation. Plan This note was constructed using voice recognition software. While every effort has been made to ensure accuracy and x ray control equipment repairer, still areas may have been included sometimes these areas may affect the content or meeting of the given symptoms. Total time spent caring for the patient today was 20 minutes. This includes time spent before the visit reviewing the chart, time spent during the visit, and time spent after the visit and documentation. Orders: Orders XR chest 2V Today R05.9 - Cough, unspecified Complete Blood Count Auto Diff Today Z00.00 - Encounter for general adult medical examination without abnormal findings
== END 2024-05-13 09:34 | disposition home or self-care (01) ==
PROVIDERS: PCP Internal Medicine
DX: R05.9 Cough, unspecified (principal)

== ENCOUNTER 2024-05-13 08:53 | Outpatient (REF) | payer OTHER, SELFPAY ==
--- NOTE | ~2024-05-13 | XR_ITS ---
EXAMINATION: XR CHEST CLINICAL INFORMATION: Cough, patient states she has pneumonia. COMPARISON: 11/16/2021. TECHNIQUE: 2 views of the chest were obtained. FINDINGS: There is no gross pneumothorax. Surgical clips right upper quadrant. Heart size is normal. Metallic clip projects over the neck. No pleural effusion. Mild degenerative changes in the thoracic spine. Mild retrocardiac opacities, possibly representing pneumonia. XR/XR chest 2V IMPRESSION: Mild retrocardiac opacities, possibly representing pneumonia. This study was presented today, 05/13/2024, for interpretation. Stat results provided at this time as requested by referring provider. Electronically signed by: Lou Estrada MD 05/13/2024 12:43 PM EDT
== END 2024-05-13 08:54 | disposition home or self-care (01) ==
LOC: HO.XRAY 08:53
PROVIDERS: PCP Internal Medicine
DX: Z00.00 Encounter for general adult medical examination without abnormal findings (principal); R05.9 Cough, unspecified
CPT/HCPCS: 71046; 99212

== ENCOUNTER 2024-08-07 10:42 | Outpatient (AMB) | payer OTHER, SELFPAY ==
--- NOTE | 2024-08-07 11:01 | A.OFFPC_ITS ---
Vital Signs 3 08/07/24 11:02 Height 5 ft 2 in Weight 132 lb BMI 24.1 BP 148/82 H Blood Pressure Location Lt brachial Position Sitting Pulse 79 Pulse Source Pulse Oximeter Pulse Oximetry (%) 96 Oxygen Delivery Method Room Air Intake Visit Reasons: DM Allergies amoxicillin Allergy (Intermediate, Verified 08/07/24 11:12) Rash egg Allergy (Mild, Verified 08/07/24 11:12) Nausea and Vomiting doxycycline Adverse Reaction (Mild, Verified 08/07/24 11:12) Rash prednisone Adverse Reaction (Mild, Uncoded 08/07/24 11:12) Headaches Tobacco use date assessed: 08/07/24 Fall risk assessment: No Falls in past year Last assessed Fall Risk: 08/07/24 Dental Screening Dental Screen Date: 08/07/24 Did you have a dental visit in the last 12 months?: Yes Did you have a dental problem in the last 6 months where you did not have access to dental care?: No Was dental information given to patient?: Patient has dentist HPI DM 2 HPI0 Details problem with allergy wth med. stopped med due to rash, cough is better. BP is good at home The patient is a 69-year-old female presenting with allergic reactions to medications, management of diabetes, hearing loss evaluation, and shoulder pain assessment. She reports developing new allergies to medications she previously tolerated, specifically noting an allergic reaction to amoxicillin characterized by the formation of large welts. This issue began recently and prompted a change in her medication regimen. She also reports mild earwax accumulation that becomes inflamed and painful, subsiding after several hours. The patient's previous diagnosis of pneumonia required an antibiotic, impacting both her breathing and cough symptoms. While the cough has lessened, it remains present. Her recent blood glucose levels, managed under diabetes mellitus, were elevated secondary to an unspecified medication, leading to alteration in her regimen. The hemoglobin A1c was noted to have increased from 6.9% to 7.3%. A persistent cyst on her foot, present for years but recently enlarging, is causing discomfort, especially while wearing boots. Previously, her zoning technician resolved a foot pain episode, but she no longer sees this specialist regularly. There is a hearing deterioration, predominantly perceived by her family members, impacting her interaction and prompting consideration for a hearing evaluation. Additionally, the patient reports recent onset of left shoulder pain without any acute injury. Previously, she received therapy for the contralateral shoulder, which had improved her symptoms at that time. Her cardiovascular risk factors including blood pressure and cholesterol are well-controlled, with LDL levels markedly improved from 105 mg/dl to 50 mg/dl. 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 Hyperlipidemia LDL goal <100 Diabetic neuropathy Esophagitis Anemia Surgical History History of cataract surgery Hx of mammogram H/O esophagogastroduodenoscopy History of colonoscopy Hx of cholecystectomy Family History Father Diabetes Mother Diabetes Social History Household Members: None Housing: Apartment Alcohol intake: never Patient Tobacco Use Status: Former Tobacco user Tobacco use type: Cigarette Cigarettes Per Day: 5 Years Smoked: quit 2021 e-Cigarette/Vaping Use: Never Used Second Hand Smoke Exposure: No service: No Current occupational status: retired Current occupation: left handed Cognitive needs: No Hearing needs: No Vision needs: Yes Questionnaire PHQ-9 Over the last 2 weeks, how often have you been bothered by any of the following problems? 1. Little interest or pleasure in doing things: not at all 2. Feeling down, depressed, or hopeless: not at all 3. Trouble falling or staying asleep, or sleeping too much: not at all 4. Feeling tired or having little energy: not at all 5. Poor appetite or overeating: not at all 6. Feeling bad about yourself - or that you are a failure or have let yourself or your family down: not at all 7. Trouble concentrating on things, such as reading the newspaper or watching television: not at all 8. Moving or speaking so slowly that other people could have noticed. Or the opposite - being so fidgety or restless that you have been moving around a lot more than usual: not at all 9. Thoughts that you would be better off or of hurting yourself in some way: not at all Total score: 0 Depression Screening Interpretation: Negative Depression Screening Done: Yes Source: Developed by Drs. Keith Morrison, Alka Hawkins, Sonny Geiger and colleagues, with an educational mary from [email or web address]. Thrive Questionnaire Date Thrive assessed: 08/07/24 I am a: Patient What is your living situation today?: I have a steady place to live Within the past 12 months, did the food you bought not last and you didn't have the money to get more?: Never true Within the past 12 months, did you worry whether your food would run out before you got money to buy more?: Never true Do you have trouble paying for medicines?: No Do you have trouble getting transportation to medical appointments?: No Do you have trouble paying your heating and electricity bill?: No Do you have trouble taking care of your child, family member or friend?: No Do you have trouble with day-to-day activities such as bathing, preparing meals, shopping, managing finances, etc.?: No Are you currently unemployed and looking for a job?: No Are you interested in more education?: No Currently or been in a relationship where the following occur: No concerns reported THRIVE Score: 0 AUDIT C Alcohol Use Questionnaire (AUDIT-C) 1. How often do you have a drink containing alcohol?: Never 3. How often do you have six or more drinks on one occasion?: Never Total Score: 0 WILLA-7 AMB Questionnaire WILLA-7 Date WILLA - 7 assessed: 08/07/24 Feeling nervous, anxious, or on edge: 0 = Not at all Not being able to stop or control worryin = Not at all Worrying too much about different things: 0 = Not at all Trouble relaxin = Not at all Being so restless that it is hard to sit still: 0 = Not at all Becoming easily annoyed or irritable: 0 = Not at all Feeling afraid as if something awful might happen: 0 = Not at all Total WILLA-7 score (0-4 normal; 5-9 mild; 10-14 moderate; 15-21 severe): 0 Source: Developed by Alka Alvarez Kurt Kroenke and colleagues, with an educational mary from [email or web address]. Physical exam (Primary Care) Vital Signs: Last Vital Signs Pulse 79 08/07/24 11:02 BP 148/82 H 08/07/24 11:02 Pulse Ox 96 08/07/24 11:02 Oxygen Delivery Method Room Air 08/07/24 11:02 BMI result Body Mass Index 24.1 Tobacco/Smoking Status: Tobacco use Status Tobacco use date assessed 08/07/24 08/07/24 11:04 Patient Tobacco Use Status Former Tobacco user 08/07/24 11:04 Tobacco use type Cigarette 08/07/24 11:04 e-Cigarette/Vaping Use Never Used 08/07/24 11:04 PHQ-9: PHQ-9 Score PHQ-9: Total score 0 08/07/24 11:53 Depression Screening Interpretation: Negative Thrive Assessment: Date of Thrive Assessment Date Thrive assessed 08/07/24 08/07/24 11:04 Currently or been in a relationship where the following occur: No concerns reported Const General: alert; No acute distress Eyes Conjunctivae: conjunctivae normal Resp Auscultation: clear to auscultation bilaterally Cardio Rate: regular rate Rhythm: regular rhythm GI Inspection: Yes normal to inspection Extrem General: Yes normal to inspection and No edema Ankle/foot/toe images: 2 1. 2 cm mass Left lateral ankle red Office Procedures Flu Questionnaire Does the patient have a severe egg allergy?: No Does the patient have severe life threatening allergies?: No Does the patient have a fever or illness today?: No Has the patient ever had Guillain-[place] Syndrome?: No Has the patient ever had any past reaction to a flu shot?: No Results AMB Hemoglobin A1c 2 AMB Hemoglobin A1c 7.3 % Last Edit by Mercedez Roberto CMA on 08/07/24 11 :20 Immunizations Fluarix Triv [id number] (PF) 45 mcg (15 mcg x 3)/0.5 mL IM syringe Performing Provider: Presley Perez MD [facility] Administered by: Mercedez Roberto CMA on 08/07/24 11:53 2 Dose Route Admin Location Dispensed Lot Number Expiration Date [facility] Junior Net Developer 0.5 mL IM Left Deltoid 0.5 mL [id number] 01/13/25 [id number] [email or web address] 2 VIS Given Date VIS Provided VIS Publication Date 08/07/24 Single Vaccine 21 Eligibility Eligibility Date Funding Source Not [facility] Eligible 08/07/24 Private Results Reviewed Results Reviewed: Laboratory Last Values Hgb A1c (Clinic) 7.3 % (4.0-6.0) H 08/07/24 11:04 Coding Level of Care Code Est Pt Level 4 (91455) Complex EM visit Add On G2211 Diagnoses Type 2 diabetes mellitus with hyperglycemia, with long-term current use of insulin E11.65; Z79.4 Hyperlipidemia LDL goal <100 E78.5 Generalized anxiety disorder F41.1 Blood pressure elevated without history of HTN R03.0 Mass of joint of left ankle M25.872 Hearing deficit H91.90 Shoulder pain, left M25.512 Assessment & Plan Assessment & Plan (1) Type 2 diabetes mellitus with hyperglycemia, with long-term current use of insulin: Comment: Eye Dr. 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 Blevins Code(s): E78.5 - Hyperlipidemia, unspecified Category: Medical (3) Generalized anxiety disorder: Comment: decline counselling 01/2022 Code(s): F41.1 - Generalized anxiety disorder Category: Medical (4) Blood pressure elevated without history of HTN: Comment: Controlled blood pressure Code(s): R03.0 - Elevated blood-pressure reading, without diagnosis of hypertension Category: Medical (5) Mass of joint of left ankle: Code(s): M25.872 - Other specified joint disorders, left ankle and foot Category: Medical Plan: referral to surgeon (6) Hearing deficit: Code(s): H91.90 - Unspecified hearing loss, unspecified ear Category: Medical (7) Shoulder pain, left: Code(s): M25.512 - Pain in left shoulder Category: Medical Plan - For drug-induced allergic reactions, discontinue amoxicillin and monitor for any new ones, particularly around previously tolerated medications. - Diabetes management to involve strict glucose monitoring, with an emphasis on dietary modifications and checking hemoglobin A1c levels regularly to maintain values below 7%. - Repeat chest X-ray to confirm resolution of prior pneumonia, given persistent mild cough and initial diagnosis. - Referral to the surgeon for thorough examination of the foot cyst and consideration of further management options. - Arrange for audiology consultation to evaluate the extent of hearing loss and to consider interventions as necessary. - Initiate physical therapy focused on the left shoulder to improve mobility and reduce pain. - Administer the influenza vaccine, given the patient's refusal of previous doses and the ongoing flu season, while advising on respiratory virus precautions including COVID-19. Orders: Orders 2 XR chest 2V Today R05.9 - Cough, unspecified PT Evaluation and Treatment Today M25.512 - Pain in left shoulder Influenza [id number] Immunization Today Z23 - Encounter for immunization AMB Hemoglobin A1c Today Z13.9 - Encounter for screening, unspecified Referrals 2 Speech and Hearing Referral H91.90 - Unspecified hearing loss, unspecified ear General Surgery Referral M25.872 - Other specified joint disorders, left ankle and foot
[2024-08-07 11:02] VITALS: BP 148/82; PULSE 79; O2SAT 96; BMI 24.1
--- OUTSIDE RECORDS SUMMARY | 2024-08-07 11:58 | XMS_ITS | Data Portability ---
Author Organization [employer] Address [address] [place] [address] Care Team Providers Care Coil Assembler Name Role Phone HIM CCA OTHER Assessment Encounter Date Assessment Date Assessment LastModified by Organization Details LastModified Time 11/13/2021 11/13/2021 I have reviewed and agree with the Assessment and Plan as documented by the Printer Slotter Feeder. I provided real -time medical direction via phone for this encounter, and was available for additional phone based assistance as needed. Patient given the opportunity to ask questions. [email or web address] Not available 11/13/2021 18:55:00 04/30/2024 04/30/2024 I provided real -time medical direction via phone for this encounter and was available for additional phone-based assistance as needed. I have reviewed and agree with the Assessment and Plan as documented by the Printer Slotter Feeder. Patient given the opportunity to ask questions. Our service contacted for an assessment of: Fever and cough As per above, patient with productive cough for several days now and congestion. Also temperature is high as 101. Denies shortness of breath chest pain or dyspnea on exertion but does endorse feeling fatigued and tired. Denies any sick contacts. Is treating fever by taking Tylenol with fairly good success. Per solderer electronic on the scene, vital signs are stable and the patient is afebrile currently at 99. The patient is in no distress per solderer electronic on the scene as well as nontoxic. She does have diminished breath sounds base with rhonchi present. There is no hypoxia noted. She is on room air. Impression: Likely pneumonia. Constellation of symptoms suggestive of pneumonia. Fortunately COVID and flu are both negative. Plan: Will prescribe short course of antibiotics 7 days of Augmentin. First dose given in the field. Patient also request a probiotic as she gets diarrhea associated with antibiotics. She can also continue with gtco-atc-frlihjz medications for cough. She should continue Tylenol for 24 hour time periods to mitigate her fever. She should maintain good hydration. Red flags discussed. Allergies: Reviewed and updated PCP f/u: We discussed the diagnostic uncertainty of home visits and the risk associated with this. In this case, the patient and I felt this to be an acceptable and reasonable amount of risk given the benefit of avoiding an ED visit. We discussed the need to seek care urgently/emergentl y in the setting of any new or worsening serious symptoms, particularly fever chills lightheadedness altered mental status [email or web address] Not available 04/30/2024 15:08:48 Plan of Treatment Reminders Order Date Submit Date Provider Last Modified By Organization Details Last Modified Time Details Appointments None recorded. Lab rapid flu (A+B) 2021 022 [email or web address] 0 [facility], [address] [place] [address], [id number], 2 19:21:25 rapid strep group A, throat 2021 022 [email or web address] 0 [facility], [address] [place] [address], [id number], 2 19:21:25 rapid SARS CoV 2 Ag, QL IA, respiratory specimen 2021 022 [email or web address] 0 [facility] - [facility], [address] [place] [address], [id number], 2 19:21:25 glucose, fingerstick , blood 2021 022 [email or web address] 0 [facility], [address] [place] [address], [id number], 2 11:29:59 rapid SARS CoV 2 Ag, QL IA, respiratory specimen 2023 024 [facility], [address] [place] [address], [phone], 4 18:23:08 rapid flu (A+B) 2023 024 [facility], [address] [place] [address], [id number], 18:22:39 Referral None recorded. Procedures None recorded. Surgeries None recorded. Imaging None recorded. Medication Orders benzonatate 100 mg capsule 2021 022 [facility], [address] [place], [address], 19:21:27 Mucinex 600 mg tablet, extended release 2023 [facility], [address] [place], [address], 15:46:41 Zithromax Z-Patrice 250 mg tablet 2023 [facility], [address] [place], [address], 15:46:41 Zithromax Z-Patrice 250 mg tablet 2023 024 [facility], [address] [place], [address], 11:44:50 Augmentin 875 mg-125 mg tablet 2023 [facility], [address] [place], [address], 15:06:23 Probiotic 10 billion cell capsule 2023 [facility], [address] [place], [address], 4 15:06:24 Augmentin 875 mg-125 mg tablet 2023 024 [email or web address] [facility], [address] [place], [address], 4 15:09:24 Patient TargetsNo targets recorded. Patient InstructionsNo instructions recorded. Reason for Referral None Reported. Results Created Date Observation Date Name Description Value Unit Range Abnormal Flag Note LastModifiedBy Organization Detail LastModifiedTime 11/14/19 22 11/13/2021 rapid SARS CoV 2 Ag, QL IA, respi rator y speci men rapid SARS CoV 2 Ag, QL IA, respiratory specimen negati ve Not Available [facility] ed [address] [place] [address], [phone], 11/13/2021 19:21:11 11/14/19 22 11/13/2021 rapid strep group A, throa t Strep negati ve Not Available [facility] ed [address] [place] [address], [id number], 11/13/2021 19:18:20 11/14/19 22 11/13/2021 rapid flu (A+B) Flu negati ve Not Available [facility] ed [address] [place] [address], [phone], 11/13/2021 18:57:23 11/15/19 22 11/14/2021 gluco se, finge rstic k, blood Blood Glucose: mg/dl 175 Not Available [facility] [address] [place] [address], [phone], 11/14/2021 11:28:33 04/30/20 24 04/30/2024 rapid SARS CoV 2 Ag, QL IA, respi rator y speci men rapid SARS CoV 2 Ag, QL IA, respiratory specimen negati ve Not Available [facility] ed [address] [place] [address], [id number], 04/30/2024 15:04:36 04/30/20 24 04/30/2024 rapid flu (A+B) Flu negati ve Not Available [facility] ed [address] [place] [address], [phone], 04/30/2024 15:04:38 Result Notes None recorded. Medical Equipment None Reported. Allergies Allergen ID Allergen Name Allergen Category Reaction Reaction Severity Criticality Documentation Date Start Date Code Code System Note Provider Name and Address Organization Details Recorded Time 428 honey bee venom medicatio n Not available Not available Not available 11/13/2021 98936 7 RxNorm Pearl Rubio MD [address], [place], [address], [facility] 2 18:55:12 8551 egg extract food,medi cation Not available Not available Not available 05/14/2024 53042 15 RxNorm Not Available [facility] 4 03:45:05 Medications Name Sig Start Date Stop Date Status Note LastModified by Organization Details LastModified Time doxycycline hyclate 100 mg capsule TAKE 1 CAPSULE BY MOUTH TWICE A DAY FOR 5DAYS active Not Available Not Available No t Available atorvastatin 20 mg tablet active Not Available Not Available Not Available azithromycin 250 mg tablet TAKE 2 TABLETS BY MOUTH TODAY, THEN TAKE 1 TABLET DAILY FOR 4 DAYS DIRECTED active Not Available Not Available No t Available sumatriptan 50 mg tablet TAKE 1 TABLET BY MOUTH DAILY NEEDED NEEDED FOR MIGRAINE HEADACHE active Not Available Not Available No t Available ketorolac 0.5 % eye drops INSTILL 1 DROP INTO BOTH EYES TWICE A DAY active Not Available Not Available No t Available famotidine 20 mg tablet active Not Available Not Available No t Available amitriptyline 10 mg tablet active Not Available Not Available Not Available benzonatate 100 mg capsule Take 1 capsule 3 times a day by oral route as needed. 2021 active Not Available Not Available Not Avai lable ferrous sulfate 325 mg (65 mg iron) tablet TAKE 1 TABLET BY MOUTH EVERY DAY active Not Available Not Available No t Available metformin 1,000 mg tablet active Not Available Not Available Not Available Joel 128 2 % eye drops PUT 1 DROP INTO BOTH EYES 3 TIMES A DAY NC BY INS active Not Available Not Available No t Available gabapentin 300 mg capsule active Not Available Not Available Not Available lisinopril 5 mg tablet active Not Available Not Available No t Available mupirocin 2 % topical ointment APPLY TOPICALLY TWICE A DAY DIRECTED active Not Available Not Available No t Available amoxicillin 875 mg-potassium clavulanate 125 mg tablet TAKE 1 TABLET BY MOUTH EVERY 12 HOURS FOR 7 DAYS active Not Available Not Available No t Available neomycin 3.5 mg/g-polymyxi n B 10,000 unit/g-dexame th 0.1 % eye oint APPLY AT BEDTIME INTO BOTH EYES active Not Available Not Available No t Available Mucinex 600 mg tablet, extended release Take 1 tablet every 12 hours by oral route for 7 days. 2023 active Not Available Not Available Not Avai lable escitalopram 20 mg tablet active Not Available Not Available Not Available Novolog FlexPen U-100 Insulin aspart 100 unit/mL (3 mL) subcutaneous active Not Available Not Available Not Available fenofibrate nanocrystalli zed 145 mg tablet TAKE 1 TABLET BY MOUTH EVERY DAY active Not Available Not Available No t Available Januvia 100 mg tablet active Not Available Not Available No t Available Lantus Solostar U-100 Insulin 100 unit/mL (3 mL) subcutaneous pen active Not Available Not Available Not Available cholecalcifer ol (vitamin D3) 50 mcg (2,000 unit) capsule active Not Available Not Available Not Available Probiotic 10 billion cell capsule Take 1 capsule every day by oral route for 10 days. 2023 active Not Available Not Available Not Avai lable Unifine Pentips 32 gauge x 5/32 needle active Not Available Not Available Not Available Jardiance 25 mg tablet active Not Available Not Available No t Available nicotine (polacrilex) 4 mg buccal mini lozenge active Not Available Not Available Not Available Flowflex COVID-19 Antigen Home Test kit active Not Available Not Available Not Available Vitals Date Recorded Heart rate Oxygen saturation Oxygen saturation in Arterial blood by Pulse oximetry Body height Body weight Body temperature Respiratory rate Heart rate Systolic blood pressure Diastolic blood pressure Provider Name and Address Organization Details Last Updated DateTime 4 115 /min 97 % 97 % 157.48 cm 60911.4 72 g 98.9 [degF] 16 /min 93 /min 125 mm[Hg] 49 mm[Hg] Not Available [facility] [employer] 4 15:34:06 Date Recorded Body height Oxygen saturation Oxygen saturation in Arterial blood by Pulse oximetry Body weight Respiratory rate Body temperature Heart rate Systolic blood pressure Diastolic blood pressure Provider Name and Address Organization Details Last Updated DateTime 4 157.48 cm 96 % 96 % 94488.2 88 g 18 /min 99 [degF] 81 /min 110 mm[Hg] 68 mm[Hg] Not Available [facility] [employer] 4 11:33:55 Date Recorded Body temperature Respiratory rate Oxygen saturation Oxygen saturation in Arterial blood by Pulse oximetry Body height Heart rate Body weight Systolic blood pressure Diastolic blood pressure Provider Name and Address Organization Details Last Updated DateTime 4 99.1 [degF] 16 /min 95 % 95 % 157.48 cm 79 /min 15665.2 88 g 107 mm[Hg] 57 mm[Hg] Not Available [employer] [employer] 4 15:02:18 Date Recorded Body height Oxygen saturation Oxygen saturation in Arterial blood by Pulse oximetry Respiratory rate Heart rate Body temperature Respiratory rate Body temperature Oxygen saturation Oxygen saturation in Arterial blood by Pulse oximetry Body height Heart rate Body weight Systolic blood pressure Diastolic blood pressure Systolic blood pressure Diastolic blood pressure Provider Name and Address Organization Details Last Updated DateTime 2 157.48 cm 95 % 95 % 18 /min 80 /min 98.2 [degF] 18 /min 98.2 [degF] 95 % 95 % 157.48 cm 80 /min 81786.6 56 g 128 mm[Hg] 75 mm[Hg] 128 mm[Hg] 75 mm[Hg] Not Available [employer] 2 20:02:40 Date Recorded Body weight Provider Name an d Address Organization Details Last Updated DateTime 11/13/2021 53968.71 g Emily Perez [address] [place] [address],[address], [place], [address], [facility] [email or web address] [facility] 11/13/2021 19:33:12 Social History None recorded. Functional Status None recorded. Mental Status None recorded. Family History Nothing Reported. Medical History No medical history recorded. Gynecological HistoryNo gynecological history recorded. Obstetrics History GPAL:G 0 P 0 0 0 0 Past Encounters Encounter ID Performer Location Encounter Start Date Encounter Closed Date Diagnosis/Indication Diagnosis SNOMED-CT Code Diagnosis ICD10 Code Diagnosis Note [id number] Peral Rubio MD [facility] [address] [place] [phone] 11/13/2021 18:52:03 03/24/2022 18:10:46 Viral syndrome 191193886 B34.9 vs reaction to Pfizer vaccine- advised to stay hydrated, max APAP 650 mg q 6 hr, rest/ gargle with warm salt H20/ throat coat tea with lemon/ may have 0.5 tsp honey( aware will raise BS)request ed cough med so Tessalon RX sent in. Advised if develops CP/ cyanosis, severe SOB to call 911 - otherwise f/u pcp 11/15/21 Type 2 marin mir mellitus without complication [id number] E11.9 [id number] Leobardo Huff MD [facility] [address] [place] [phone] 08/14/2023 15:33:53 08/15/2023 10:57:22 Acute sinusitis 57013904 J01.10 This 68-year-ol d female presented with a one day history of sinus congestion and pain with a low grade fever. She also appeared to be somewhat dehydrated . I suspect she has a URI with sinusitis. I ordered one liter of NS IV and treatment with Mucinex and a Z-Patrice. She will follow-up with her PCP. The patient agreed with this plan. Leobardo Huff MD [facility] [address] [place] [phone] 09/12/2023 11:33:53 09/13/2023 17:20:45 Acute sinusitis [id number] J01.10 This 68-year-ol d female has had typical URI symptoms for several days, and now she has a purulent nasal discharge and pressure on the left side of her face. Her COVID-19 and flu screens were negative. I ordered a Z-Patrice and Mucinex. She will follow-up with her PCP. The patient agreed with this plan. [id number] Lavern Arriaga MD [facility] [address] [place] [phone] 04/30/2024 15:02:11 04/30/2024 18:43:13 Upper respiratory infection 70930864 J06.9 Health Concerns Section Related Observation LastModified by Organization Detai ls LastModified Time None Recorded Concern Status LastModified by Organization Details LastModified Time None Recorded Advance Directives Directive None Recorded Payers Encounter Date Sequence Insurance Name Policy Number Policy Barnes Covered Member ID Barnes Member ID Guarantor Name 11/13/2021 1 [facility] - DOS PRIOR TO 2022 - DUAL ELIGIBLE (MEDICARE REPLACEMENT/ADV ANTAGE - HMO) Gayle Antoine [id number] Gayle Antoine 08/14/2023 1 [facility] - DOS ON OR AFTER 2022 - DUAL ELIGIBLE - SHELTER OPT[employer] AND ONE CARE (MEDICARE REPLACEMENT/ADV ANTAGE - HMO) Gayle Antoine [id number] Gayle Antoine 09/12/2023 1 [facility] - DOS ON OR AFTER 2022 - DUAL ELIGIBLE - [employer] AND ONE CARE (MEDICARE REPLACEMENT/ADV ANTAGE - HMO) Gayle Antoine [id number] Gayle Antoine 04/30/2024 1 [facility] - DOS ON OR AFTER 2022 - DUAL ELIGIBLE - [employer] AND ONE CARE (MEDICARE REPLACEMENT/ADV ANTAGE - HMO) Gayle Antoine [id number] Gayle Antoine Notes Date Note Type Note Provider Name and Address Organization Details Recorded Time 11/13/2021 text/html [facility] Nursing Assessment: Reason For Request: Cold Symptoms Chief Complaints: Cough, Fever/Chills, Nausea/Vomiting, Syncope/Dizziness/Li ghtheadedness Allergies: Unknown Comments: Member calling in to request an [facility] visit. Member is 11 days s/p receiving second Pfizer booster. Since administration member has been fatigued, fever, chills, nausea and dizziness. Member reports taking tylenol with no effect. Denies sick contacts. Would like an evaluation. EBENEZER MD: Pat only weighs 143 lbs but took 1 gram APAP @ 11:30 am and 500 mg at noon- is now afebrile - has been coughing up clear mucus/ nausea no vomiting- had some diarrhea which stopped w/ immodium/ only feels dizzy with cough/ making ribs/ back sore with cough- Labile BS this week- has free style Adi CGM- BS 59- 200................. .................... .................... .................... .................... .................... .................... .... Printer Slotter Feeder Note: Sent to a call for a pt complaining of fatigue, cough, nausea and dizziness. SC6 arrives on scene. Pt is alert and oriented. Airway is patent. Pt states she got her 2nd Pfizer vaccine on 11/02 and began feeling ill. Pt states she has had nausea, diarrhea, cough, dizziness with cough, fatigue and fever. Pt states diarrhea stopped after taking immodium. Pt denies chest pain, sob, abd pain, vomiting, or headache. Pt took 1g Tylenol at 11am today and 500mg approx 12-12:30. Pt advised of proper Tylenol dosing. Vitals uploaded to [employer]. Lung sounds: clear bilaterally. No drooling or stridor noted. Rapid strep, influenza and COVID test negative. [facility] script to pt's pharmacy for medication to help with cough. Pt advised to use Throat Coat, tea with lemon and a little honey, gargle with warm salt water and follow up with PCP on Monday. Red flags discussed. Pt has no further questions. .................... .................... .................... .................... .................... .................... .................... . Disposition: Fulfilled Pearl Rubio MD [address] [facility],[address], [place], [address], [employer] 11/14/2021 11:30:08 08/14/2023 text/html [facility] Nurse Triage Notes (Marjorie Recinos): Reason For Request: URI / PAIN Chief Complaints: Cough, Fever/Chills PMH: Diabetes Allergies: Unknown Comments: Verified identity / address/ Member is a 68 yr old female. Member has c/o fever took cold and flu with no change. Member has a dry cough, causing nausea. Member has sob when cough, exp wheezing. Symptoms started yesterday. Member has also c/o pain in the back of the knees. Member has chronic knee pain. Per member the knee pain is a sign of getting sick. Member BS 221 this AM, baseline normally 155 Member has a PMH > DM .................... .................... .................... .................... .................... .................... .................... . Printer Slotter Feeder Note From Greg Denny: Pt reports 3 days of sinus congestion, FUNK, dry cough, poor PO intake and fever (100.4). Pt taking DayQuil with little relief. Pt denies CP, SOB, GUTIERREZ, n/n/v. Pt is alert, NAD. Tachy at 115, VS otherwise stable. Non focal neuro exam. Normal gait. Lungs CTA. Benign ABD exam. No LE edema. Rapid covid and flu negative. Unremarkable POC labs. Pt treated with normal saline 1 L IV and azithromycin 500 mg PO. [facility] to send mucinex and azithromycin to pharmacy. Pt instructed to f/u with PCP tomorrow and to seek emergent medical care for new or worsening sx, which are reviewed with her. .................... .................... .................... .................... .................... .................... .................... . Disposition: Fulfilled Leobardo Huff MD [address] [facility],[address], [place], [address], [employer] 08/14/2023 15:47:00 09/12/2023 text/html [facility] Nurse Triage Notes (Marjorie Recinos): Reason For Request: Pt reporting fever, cough, pain in her knees and her back, headache>symptoms going on 3 days. Chief Complaints: Headache, Cough, Fever/Chills, Pain PMH: Diabetes Allergies: Egg Comments: Verified identity / address/ Member is a 68 yr old female Member has had Flu like symptoms for 3 days but fever started yesterday. Fever is 101. took tylenol. Member has mild sob. Member has not taken anything OTC for symptoms. BS 223 but gave herself insulin Leobardo Huff MD [address] [place] [address],[address], [place], [address], [employer] 09/12/2023 11:45:05 04/30/2024 text/html [facility] Nurse Triage Notes (Marjorie Recinos): Reason For Request: URI Chief Complaints: Pain, Chest Pain, Cough PMH: Diabetes, Hypertension Allergies: Egg Comments: Process Assistant verified the member's name//address and phone number. Member is a 69 yr old female, a/o3 PMH >DM ( BS 177) HTN > takes Lisinopril Allergies >EGGPt is calling for cough and when she coughs she has chest pressure on right side. Temp is 101. She also has body aches on legs and back. She is getting sputum with cough , that is green. She has had the symptoms since yesterday. She took mariann tea. She is having sob when she coughs and is unable to eat well. She feels she has to hold her chest when she coughs. The pain is not radiating, but it is not present when she is not coughing. She does not have any cardiac history. Education provided on the response time and the member was advised to monitor reported s/s and seek emergency treatment if needed Printer Slotter Feeder Organization Information for Greg Denny Apparent Legal Name: [facility] Address: [address] [place] [address], [place] [address], Stamping Machine Operator: Guanaco Sanchez MD CLIA No.: [id number] Printer Slotter Feeder POC Test Results from Greg Denny - ALS Rapid COVID antigen (14:39:48) COVID: - Rapid influenza antigen (14:39:49) Flu: - .................... .................... .................... .................... .................... .................... .................... . Printer Slotter Feeder Note From Eduin Greg: Pt reports three days of body aches, fever and cough producing green sputum. Pt reports fever of 101 this morning. Pt using tylenol and ibuprofen to treat the fever and body aches. Pt denies SOB, GUTIERREZ, FUNK, dizziness, n/v/d. Allergy to egg. Pt is alert, NAD. VSS. Afebrile. Non focal neuro exam. Normal gait. Lower right rales. Benign ABD exam. No LE edema. Rapid covid and flu negative. Pt treated with Augmentin DS. Pt educated on prescriptions. Pt advised to start taking Mucinex DM bid along with her prescriptions. Pt instructed to f/u with PCP this week and to present to the ED for new or worsening sx such as fever unrelieved by tylenol, SOB, AMS. .................... .................... .................... .................... .................... .................... .................... . Disposition: Fulfilled Lavern Arriaga MD [address] [facility],[address], [place], [address], [employer] [facility] [employer] 04/30/2024 15:10:17 OBGyn Episode No OBEpisode recorded.
== END 2024-08-07 11:59 | disposition home or self-care (01) ==
PROVIDERS: PCP Internal Medicine; Visit Provider Internal Medicine
DX: E11.65 Type 2 diabetes mellitus with hyperglycemia (principal); Z79.4 Long term (current) use of insulin; E78.5 Hyperlipidemia, unspecified; F41.1 Generalized anxiety disorder; R03.0 Elevated blood-pressure reading, without diagnosis of hypertension; M25.872 Other specified joint disorders, left ankle and foot; H91.90 Unspecified hearing loss, unspecified ear; M25.512 Pain in left shoulder; Z23 Encounter for immunization; Z13.9 Encounter for screening, unspecified

== ENCOUNTER → 2024-08-07 10:42 | Outpatient (BNVA) | payer OTHER, SELFPAY | PROVIDERS: PCP Internal Medicine; Visit Provider Internal Medicine | DX: Z23 Encounter for immunization (principal); E11.65 Type 2 diabetes mellitus with hyperglycemia; E78.5 Hyperlipidemia, unspecified; F41.1 Generalized anxiety disorder; R03.0 Elevated blood-pressure reading, without diagnosis of hypertension; M25.872 Other specified joint disorders, left ankle and foot; M25.512 Pain in left shoulder; H91.90 Unspecified hearing loss, unspecified ear; Z79.4 Long term (current) use of insulin | CPT/HCPCS: 83036; 90471; 90656; 99212 ==

== ENCOUNTER 2024-08-27 10:50 | Outpatient (AMB) | payer OTHER, SELFPAY ==
--- NOTE | 2024-08-27 10:54 | A.OFFVIS_ITS ---
Vital Signs 08/27/24 11:05 Height 5 ft 2 in Weight 137 lb BMI 25.1 BP 146/68 H Blood Pressure Location Rt brachial Position Sitting Pulse 97 Intake Visit Reasons: Abscess~ Lt ankle Intake Note: Patient referred by pcp Dr. Perez for abscess on Lt ankle. Present for yrs. Patient c/o: recently irritated with boots. Denies bleeding, oozing. Was hospitalized Monday for Lisinopril rxn. Entry Specialist Required: No Accompanied by: Self / Same As Patient Allergies amoxicillin Allergy (Intermediate, Verified 08/27/24 11:03) Rash egg Allergy (Mild, Verified 08/27/24 11:03) Nausea and Vomiting lisinopril Adverse Reaction (Severe, Verified 08/27/24 11:03) Rash doxycycline Adverse Reaction (Mild, Verified 08/27/24 11:03) Rash prednisone Adverse Reaction (Mild, Uncoded 08/27/24 11:03) Headaches HPI Comments Details: Patient presents for evaluation of an enlarging symptomatic left lateral soft tissue ankle mass. Because of progression of symptoms, patient would like to have this evaluated and have it removed. She has no such lesions elsewhere. 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 Hyperlipidemia LDL goal <100 Diabetic neuropathy Esophagitis Anemia Surgical History History of cataract surgery Hx of mammogram H/O esophagogastroduodenoscopy History of colonoscopy Hx of cholecystectomy Family History Father Diabetes Mother Diabetes Social History Household Members: None Housing: Apartment Alcohol intake: never Patient Tobacco Use Status: Former Tobacco user Tobacco use type: Cigarette Cigarettes Per Day: 5 Years Smoked: quit 2021 e-Cigarette/Vaping Use: Never Used Second Hand Smoke Exposure: No service: No Current occupational status: retired Current occupation: left handed Cognitive needs: No Hearing needs: No Vision needs: Yes Physical Exam Vital Signs: Last Vital Signs Pulse 97 08/27/24 11:05 BP 146/68 H 08/27/24 11:05 BMI result Body Mass Index 25.1 Chest Other: Chest breath sounds bilaterally, HS 1 in 2 GI Other: Abdomen is soft, benign Extrem Other: Patient was a soft tissue mass measuring roughly 4 x 3 cm overlying the left lateral malleolus. The mass is quite mobile and consistent with a cystic type etiology. Assessment & Plan Assessment & Plan (1) Mass of soft tissue of left lower extremity: Code(s): M79.89 - Other specified soft tissue disorders Category: Surgical Plan Because of the size and location of this process, I recommended at this mass be excised and an ambulatory surgical setting. Risks, benefits, alternatives of procedure reviewed with the patient included but not limited to bleeding, infection, recurrence, numbness, pain, scarring, nonhealing and the patient wishes to proceed. All questions answered. Arrangements were made for this on a day which is convenient for her. Coding Level of Care Code New Pt Level 5 (57126) Diagnoses Mass of soft tissue of left lower extremity M79.89
[2024-08-27 11:05] VITALS: BP 146/68; PULSE 97; BMI 25.1
--- OUTSIDE RECORDS SUMMARY | 2024-08-27 12:08 | XMS_ITS | Data Portability ---
Author Organization [employer] [facility] [employer] Address [address] [place] [address] Care Team Providers Care Slurry Control Operator Helper Name Role Phone HIM CCA OTHER Assessment Encounter Date Assessment Date Assessment LastModified by Organization Details LastModified Time 11/13/2021 11/13/2021 I have reviewed and agree with the Assessment and Plan as documented by the Commanding Officer Homicide Squad. I provided real -time medical direction via phone for this encounter, and was available for additional phone based assistance as needed. Patient given the opportunity to ask questions. [email or web address] Not available 11/13/2021 18:55:00 04/30/2024 04/30/2024 I provided real -time medical direction via phone for this encounter and was available for additional phone-based assistance as needed. I have reviewed and agree with the Assessment and Plan as documented by the Commanding Officer Homicide Squad. Patient given the opportunity to ask questions. [...] taking Tylenol with fairly good success. Per liquor bridge operator on the scene, vital signs are stable and the patient is afebrile currently at 99. The patient is in no distress per liquor bridge operator on the scene as well as nontoxic. [...] with antibiotics. She can also continue with [id number] medications for cough. She should continue Tylenol [...] rapid flu (A+B) 2021 022 [email or web address] 0 [facility], [address] [place] [address], [id number], 2 19:21:25 rapid strep group A, throat 2021 022 [email or web address] 0 [facility], [address] [place] [address], [id number], 2 19:21:25 rapid SARS CoV 2 Ag, QL IA, respiratory specimen 2021 022 [email or web address] 0 [facility], [address] [place] [address], [id number], 2 19:21:25 glucose, fingerstick , blood 2021 022 [email or web address] 0 [facility], [address] [place] [address], [id number], 2 11:29:59 rapid SARS CoV 2 Ag, QL IA, respiratory specimen 2023 024 [email or web address] [address] [place] [address], [id number], 4 18:23:08 rapid flu (A+B) 2023 024 [facility], [address] [place] [address], [id number], 18:22:39 Referral None recorded. Procedures None recorded. Surgeries None recorded. Imaging None recorded. Medication Orders benzonatate 100 mg capsule 2021 022 [id number], [address] [place], [address], 19:21:27 Mucinex 600 mg tablet, extended release 2023 [facility], [address] [place], [address], 15:46:41 Zithromax Z-Partice 250 mg tablet 2023 [facility], [address] [place], [address], 15:46:41 Zithromax Z-Patrice 250 mg tablet 2023 024 [facility], [address] [place], [address], 11:44:50 Augmentin 875 mg-125 mg tablet 2023 [facility], [address] [place], [address], 15:06:23 Probiotic 10 billion cell capsule 2023 [facility], [address] [place], [address], 4 15:06:24 Augmentin 875 mg-125 mg tablet 2023 024 [email or web address] [facility] [address] [place], [address], 4 15:09:24 Patient TargetsNo targets recorded. Patient InstructionsNo instructions recorded. Reason for Referral None Reported. Results Created Date Observation Date Name Description Value Unit Range Abnormal Flag Note LastModifiedBy Organization Detail LastModifiedTime 11/14/19 22 11/13/2021 rapid SARS CoV 2 Ag, QL IA, respi rator y speci men rapid SARS CoV 2 Ag, QL IA, respiratory specimen negati ve Not Available [facility] ed [address] [place] [address], [phone], 11/13/2021 19:21:11 11/14/19 22 11/13/2021 rapid strep group A, throa t Strep negati ve Not Available [facility] ed [address] [place] [address], [address], 11/13/2021 19:18:20 11/14/19 22 11/13/2021 rapid flu (A+B) Flu negati ve Not Available [facility] ed [address] [place] [address], [address], 11/13/2021 18:57:23 11/15/19 22 11/14/2021 gluco se, finge rstic k, blood Blood Glucose: mg/dl 175 Not Available [facility] [address] [place] [address], [address], 11/14/2021 11:28:33 04/30/20 24 04/30/2024 rapid SARS CoV 2 Ag, QL IA, respi rator y speci men rapid SARS CoV 2 Ag, QL IA, respiratory specimen negati ve Not Available [facility] ed [address] [place] [address], [address], 04/30/2024 15:04:36 04/30/20 24 04/30/2024 rapid flu (A+B) Flu negati ve Not Available [facility] ed [address] [place] [address], [address], 04/30/2024 15:04:38 Result Notes None recorded. Medical Equipment None Reported. Allergies Allergen ID Allergen Name Allergen Category Reaction Reaction Severity Criticality Documentation Date Start Date Code Code System Note Provider Name and Address Organization Details Recorded Time 428 honey bee venom medicatio n Not available Not available Not available 11/13/2021 59218 7 RxNorm Pearl Rubio MD [address], [place], [address], [facility] [employer] 2 18:55:12 8551 egg extract food,medi cation Not available Not available Not available 05/14/2024 03795 15 RxNorm Not Available [facility] - production [...] active Not Available Not Available Not Available Jole 128 2 % eye drops PUT 1 [...] /min 97 % 97 % 157.48 cm 94014.4 72 g 98.9 [degF] 16 /min 93 /min 125 mm[Hg] 49 mm[Hg] Not Available [facility] [employer] 4 15:34:06 Date Recorded Body height Oxygen saturation Oxygen saturation in Arterial blood by Pulse oximetry Body weight Respiratory rate Body temperature Heart rate Systolic blood pressure Diastolic blood pressure Provider Name and Address Organization Details Last Updated DateTime 4 157.48 cm 96 % 96 % 70859.2 88 g 18 /min 99 [degF] 81 /min 110 mm[Hg] 68 mm[Hg] Not Available [facility] [employer] production 4 11:33:55 Date Recorded Body temperature Respiratory rate Oxygen saturation Oxygen saturation in Arterial blood by Pulse oximetry Body height Heart rate Body weight Systolic blood pressure Diastolic blood pressure Provider Name and Address Organization Details Last Updated DateTime 4 99.1 [degF] 16 /min 95 % 95 % 157.48 cm 79 /min 70126.2 88 g 107 mm[Hg] 57 mm[Hg] Not Available [employer] - production 4 15:02:18 Date Recorded Body [...] % 95 % 157.48 cm 80 /min 20235.6 56 g 128 mm[Hg] 75 mm[Hg] 128 mm[Hg] 75 mm[Hg] Not Available [employer] 2 20:02:40 Date Recorded Body weight Provider Name an d Address Organization Details Last Updated DateTime 11/13/2021 37803.71 g Emily Perez [address] [place] [address],[address], [place], [address], [facility] [employer] [facility] 11/13/2021 19:33:12 Social History None recorded. Functional Status None recorded. Mental Status None recorded. Family History Nothing Reported. Medical History No medical history recorded. Gynecological HistoryNo gynecological history recorded. Obstetrics History GPAL:G 0 P 0 0 0 0 Past Encounters Encounter ID Performer Location Encounter Start Date Encounter Closed Date Diagnosis/Indication Diagnosis SNOMED-CT Code Diagnosis ICD10 Code Diagnosis Note [id number] [facility] [address] [place] [phone] 11/13/2021 18:52:03 03/24/2022 18:10:46 Viral syndrome 823079191 B34.9 vs reaction to Pfizer vaccine- advised [...] Type 2 marin mir mellitus without complication 754683577 E11.9 [id number] Leobardo Huff MD [facility] [address] [place] [phone] 08/14/2023 15:33:53 08/15/2023 10:57:22 Acute sinusitis 01712964 J01.10 This 68-year-ol d female presented with [...] plan. Leobardo Huff MD [facility] [address] [place] [phone] 09/12/2023 11:33:53 09/13/2023 17:20:45 Acute sinusitis 33784678 J01.10 This 68-year-ol d female has had typical URI symptoms for several days, and now she has a purulent nasal discharge and pressure on the left side of her face. Her COVID-19 and flu screens were negative. I ordered a Z-Patrice and Mucinex. She will follow-up with her PCP. The patient agreed with this plan. [id number] Lavern Arriaga MD [facility] [address] [place] [address] 04/30/2024 15:02:11 04/30/2024 18:43:13 Upper respiratory infection 51935743 J06.9 Health Concerns Section Related Observation LastModified by Organization Detai ls LastModified Time None Recorded Concern Status LastModified by Organization Details LastModified Time None Recorded Advance Directives Directive None Recorded Payers Encounter Date Sequence Insurance Name Policy Number Policy Barnes Covered Member ID Barnes Member ID Guarantor Name 11/13/2021 1 [facility] - DOS PRIOR TO 2022 - DUAL ELIGIBLE (MEDICARE REPLACEMENT/ADV ANTAGE - HMO) Gayle Antoine [id number] Gayle Antoine 08/14/2023 1 [facility] - DOS ON OR AFTER 2022 - DUAL ELIGIBLE - SKILLED NURSING OPTIONS AND ONE CARE (MEDICARE REPLACEMENT/ADV ANTAGE - HMO) Gayle Antoine [id number] Gayle Antoine 09/12/2023 1 [facility] - DOS ON OR AFTER 2022 - DUAL ELIGIBLE - SKILLED NURSING OPTIONS AND ONE CARE (MEDICARE REPLACEMENT/ADV ANTAGE - HMO) Gayle Antoine [id number] Gayle Antoine 04/30/2024 1 [facility] - DOS ON OR AFTER 2022 - DUAL ELIGIBLE - SKILLED NURSING OPTIONS AND ONE CARE (MEDICARE REPLACEMENT/ADV ANTAGE - HMO) Gayle Antoine [id number] Gayle Antoine Notes Date Note Type Note Provider Name and Address Organization Details Recorded Time 11/13/2021 text/html [facility] Nursing Assessment: Reason For Request: Cold Symptoms Chief Complaints: Cough, Fever/Chills, Nausea/Vomiting, Syncope/Dizziness/Li ghtheadedness Allergies: Unknown Comments: Member calling in to request an [facility] visit. Member is 11 days s/p receiving [...] .................... .................... .................... .................... .................... .................... .... Commanding Officer Homicide Squad Note: Sent to a call for a [...] of proper Tylenol dosing. Vitals uploaded to [employer]. Lung sounds: clear bilaterally. No drooling or stridor noted. Rapid strep, influenza and COVID test negative. [facility] sends script to pt's pharmacy for medication to help with cough. Pt advised to use Throat Coat, tea with lemon and a little honey, gargle with warm salt water and follow up with PCP on Monday. Red flags discussed. Pt has no further questions. .................... .................... .................... .................... .................... .................... .................... . Disposition: Fulfilled Pearl Rubio MD [address] [facility],[address], [place], [address], [facility] 11/14/2021 11:30:08 08/14/2023 text/html [facility] Nurse Triage [...] .................... .................... .................... .................... .................... .................... . Commanding Officer Homicide Squad Note From Greg Denny: Pt reports 3 [...] L IV and azithromycin 500 mg PO. [facility] to send mucinex and azithromycin to pharmacy. Pt instructed to f/u with PCP tomorrow and to seek emergent medical care for new or worsening sx, which are reviewed with her. .................... .................... .................... .................... .................... .................... .................... . Disposition: Fulfilled Leobardo Huff MD [address] [facility],[address], [place], [address], [facility] 08/14/2023 15:47:00 09/12/2023 text/html [facility] Nurse Triage [...] but gave herself insulin Leobardo Huff MD [address] [place] [address],[address], [place], [address], [facility] 09/12/2023 11:45:05 04/30/2024 text/html [facility] Nurse Triage Notes (Marjorie Recinos): Reason For Request: URI Chief Complaints: Pain, Chest Pain, Cough PMH: Diabetes, Hypertension Allergies: Egg Comments: Capital Equipment Specialist verified the member's name//address and phone number. [...] s/s and seek emergency treatment if needed Commanding Officer Homicide Squad Organization Information for Greg Denny [employer] Legal Name: [facility] Address: [address] [place] [address], [place] [address], Grain Scooper: Guanaco Sanchez MD CLIA No.: [id number] Commanding Officer Homicide Squad POC Test Results from Greg Denny - ALS Rapid COVID antigen (14:39:48) COVID: - Rapid influenza antigen (14:39:49) Flu: - .................... .................... .................... .................... .................... .................... .................... . Commanding Officer Homicide Squad Note From Eduin Greg: Pt reports three [...] . Disposition: Fulfilled Lavern Arriaga MD [address] [facility],[address], [place], [address], [employer] 04/30/2024 15:10:17 OBGyn Episode No OBEpisode recorded.
--- OUTSIDE RECORDS SUMMARY | 2024-08-27 12:08 | XMS_ITS | Encounter Summary ---
Author Organization [facility] Address [address] [place] [address] Care Team Providers Care Skin Tanner Name Role Phone Presley Perez MD Primary Care Provider [phone] Reason for Visit * Reason Comments Oral Swelling * Auth/Cert (Routine) Specialty Diagnoses / Procedures Referred By Isai cazares Referred To Contact Diagnoses Angioedema Procedures . Jemal Padilla MD [address] [place] [id number] Phone: tel: fax: [facility] [address] [place] [phone] Phone: tel: Referral ID Status Reason Start Date Expiration Date Visits Re quested Visits Authorized [id number] 1 1 Encounter Details Date Type Department Care Team (Late st Contact Info) Description 08/24/2024 7:04 PM EST - 08/25/2024 11:[address] [facility] [address] [place] [phone] Mariaelena Ya DO [address] [place] [phone] Jemal Padilla MD [address] [place] [id number] Abdi Raymundo MD [address] [place] [phone] Angioedema, initial encounter (Primary Dx) Discharge Disposition: Home or Self Care Social History Tobacco Use Types Packs/Day Years Used Date Smoking Tobacco: Former Cigarettes Q uit: 11/22/2022 Smokeless Tobacco: Never Comments Unknown Sex and Gender Information Value Date Recorded Sex Assigned at Female 08/24/2024 7:48 PM EST Legal Sex Female 8:46 PM EST Gender Identity Female 08/24/2024 7:48 PM EST Sexual Orientation Straight 08/24/2024 7: 48 PM EST documented as of this encounter Last Filed Vital Signs Vital Sign Reading Time Taken Comments Blood Pressure 150/65 08/25/2024 8:35 AM EST Pulse 84 08/25/2024 8:35 AM EST Temperature 36.6 ??C (97.9 ??F) 08/25/2024 6:14 AM ES T Respiratory Rate 11 08/25/2024 8:35 AM EST Oxygen Saturation 99% 08/25/2024 8:35 AM EST Inhaled Oxygen Concentration - - Weight 60.8 kg (134 lb) 08/24/2024 6:56 PM EST Height 157.5 cm (5' 2 ) 08/24/2024 6:56 PM EST Body Mass Index 24.51 08/24/2024 6:56 PM EST documented in this encounter Functional Status * Are you deaf or do you have serious difficulty hearing? Answer Date of Assessment Author No 08/25/2024 4:06 AM Ирина Tejeda RN * Are you blind or do you have serious difficulty seeing, even when wearing glasses? Answer Date of Assessment Author No 08/25/2024 4:06 AM Ирина Tejeda RN * Do you have serious difficulty walking or climbing stairs? Answer Date of Assessment Author No 08/25/2024 4:06 AM Ирина Tejeda RN * Do you have serious difficulty dressing or bathing? Answer Date of Assessment Author No 08/25/2024 4:06 AM Ирина Tejeda RN * Because of a physical, mental, or emotional condition, do you have serious difficulty doing errandsalone such as visiting the doctor? Answer Date of Assessment Author No 08/25/2024 4:06 AM Ирина Tejeda RN documented as of this encounter Mental Status * Because of a physical, mental, or emotional condition, do you have serious difficulty concentrating, remembering, or making decisions? (5 years old or older) Answer Entry Date Author No 08/25/2024 4:06 AM Ирина Tejeda RN documented in this encounter Discharge Instructions * Discharge Instructions* MERLE Lawrence - 08/25/2024 10:54 AM EST You were treated for angioedema suspected to be due to lisinopril use. Take pepcid 20 mg twice daily for 2 weeks then reduce back to your chronic 20 mg nightly Stop taking lisinopril. Provided EpiPen in case of anaphylactic allergy. Follow-up with your primary care provider within 1-2 weeks upon discharge Return to the ED with any new or worsening symptoms. documented in this encounter Medications at Time of Discharge atorvastatin (LIPITOR) 20 mg tablet Take 1 tablet (20 mg total) by mouth at bedtime. 05/18/2023 cholecalciferol (VITAMIN D-3) 50 mcg (2,000 unit) capsule Take 1 capsule (2,000 Units total) by mouth 1 (one) time each day. 05/18/2023 escitalopram (LEXAPRO) 20 mg tablet Take 1 tablet (20 mg total) by mouth 1 (one) time each day. 05/18/2023 famotidine (PEPCID) 20 mg tablet Take 1 tablet (20 mg total) by mouth 2 (two) times a day for 14 days, THEN 1 tablet (20 mg total) at bedtime. 58 each 08/25/2024 10/08/2024 gabapentin (NEURONTIN) 300 mg capsule Take 1 capsule (300 mg total) by mouth 2 (two) times a day. 05/18/2023 Lantus Solostar U-100 Insulin 100 unit/mL (3 mL) injection pen Inject 24 Units under the skin at bedtime. 08/25/2023 metFORMIN (GLUCOPHAGE) 1,000 mg tablet Take 1 tablet (1,000 mg total) by mouth 2 (two) times a day with meals. 05/18/2023 NovoLOG Flexpen U-100 Insulin 100 unit/mL (3 mL) injection pen Inject 0-10 Units under the skin 3 (three) times a day before meals. 08/25/2023 EPINEPHrine (EPIPEN) 0.3 mg/0.3 mL injection Inject 0.3 mL (0.3 mg total) into the thigh if needed for anaphylaxis. Call 911 after use. 1 each 08/25/2024 09/24/2024 documented as of this encounter Ordered Prescriptions Prescription Sig Dispense Quantity Refills Last Filled Start Date End Date EPINEPHrine (EPIPEN) 0.3 mg/0.3 mL injection Inject 0.3 mL (0.3 mg total) into the thigh if needed for anaphylaxis. Call 911 after use. 1 each 08/25/2024 09/24/2024 famotidine (PEPCID) 20 mg tablet Take 1 tablet (20 mg total) by mouth 2 (two) times a day for 14 days, THEN 1 tablet (20 mg total) at bedtime. 58 each 08/25/2024 10/08/2024 documented in this encounter Discharge Disposition Disposition Code Departure Means Destination Comment s Home or Self Care documented in this encounter Progress Notes * Isha Meadows RN - 08/25/2024 11:52 AM EST 08/25/24 1152 ED Transition Plan ED Transition Plan Transitioned Home Transportation Transportation at discharge Family Final Discharge Disposition Home or Self Care Pt discharged from ED home no services. * Isha Meadows RN - 08/25/2024 9:18 AM EST 08/25/24 0917 Initial Transition Plan Initial Transition Plan Home Back up Transition Plan Back up Transition plan Home Discharge Planning Contact (Name, Phone #, Relationship) for DC Planning Edwardo Phoenix daughter [phone] Living Arrangements Alone Type of Residence Private residence (apartment with elevator to enter) Assistive Devices Walker;Cane Support Systems Children Medication Coverage Has Med Coverage Under Insurance Plan Yes Medication Affordability No concerns related to payment for meds Informed Choice Informed Choice Given? Yes (choice form completed) Transportation Transportation at discharge Family Met with pt/daughter at bedside demographics, PCP, insurance reviewed. Pt is not a . Uses [employer] [address] Pt has homemaker 1x week for 3hrs. No discharge needs anticipated at this time * Lizzy Barbosa RN - 08/24/2024 7:32 PM EST Assumed care of pt. Pt is A+O x4. Pt presents to ED with tongue swelling. Pt took advil for shoulder pain. She also ate figs. Her tongue started swelling so she took benadryl. Swelling did not go down, so she came to ER. Pt does have hives on the back of her right shoulder. Pt states that she has been getting hives on and off for the past few months. Pt states she does take Lisinopril for HTN, however does not take it all the time. Pt states that she has been taking Lisinopril for a few months.Pt Is NSR on monitor. PT is able to speak full sentences. SPO2 at 97% on RA. Bed locked and in lowest position. Call sun within reach. * Alecia Sauer RN - 08/24/2024 7:02 PM EST 1640 pt reports her tongue started swelling . Pt reports she took advill for shoulder pain Not sure what time. Pt reports she took a benadryl but her tongue just kept getting bigger * Mariaelena Ya, - 08/24/2024 6:53 PM EST Emergency Medicine Note Patient Name: Gayle Antoine Initial Evaluation: 08/24/2024 : 1955 Patient's PCP: Presley Perez MD Emergency Physician: MERLE Deleon History of Present Illness Chief Complaint: Chief Complaint Patient presents with Oral Swelling HPI: 69-year-old female with history of diabetes and hypertension complaining of tongue swelling. Patient states that she ate some Progresso soup and took some Tylenol at approximately 4 PM and then the swelling began. She denies history of similar. However, patient states that since being diagnosed with pneumonia in April she has been experiencing hives on different parts of her body almost every other day. She has seen her PCP regarding that issue and has not been referred to an glaze wiper. Currently, she denies shortness of breath fever difficulty swallowing, she was just complaining of the tongue swelling. ROS: I have performed a ROS with the pertinent positives and negatives documented in the history ofpresent illness. Previous History Past Medical History: Diagnosis Date DM (diabetes mellitus) (CMS/HCC) HTN (hypertension) History reviewed. No pertinent surgical history. Social History Tobacco Use Smoking status: Former Current packs/day: 0.00 Types: Cigarettes Quit date: 11/22/2022 Years since quittin.7 Smokeless tobacco: Never Substance Use Topics Drug use: Never No family history on file. is allergic to amoxicillin and phrd-axiyzq-kltg [nutritional supplement-fiber]. No current facility-administered medications on file prior to encounter. No current outpatient medications on file prior to encounter. Physical Exam ED Triage Vitals [08/24/24 1856] Temp Heart Rate Resp BP 36.5 ??C (97.7 ??F) 83 18 (!) 150/61 SpO2 Temp Source Heart Rate Source Patient Position 96 % Oral -- -- BP Location FiO2 (%) -- -- General: Well-appearing, well nourished, in no acute distress HEENT: PERRL, EOMI, external ears and nose appear unremarkable, obvious angioedema of the tongue nooropharyngeal or uvular edema appreciated. Neck: Supple, full range of motion Chest: Clear to auscultation; no evidence of respiratory distress Circulatory: RRR, extremities well perfused Abdomen: Non-distended, Non-Tender Extremities: Normal ROM, No edema Skin: Warm and dry, urticaria noted to the left posterior shoulder Neuro: Alert and oriented, no focal deficits Results Labs Reviewed - No data to display Abnormal Labs Reviewed - No data to display No orders to display I have discussed the incidental/abnormal imaging and/or lab abnormalities with the patient and haveinstructed them the need for further evaluation and workup with their primary care doctor. I have provided the patient with a paper copy of the abnormality. The laboratory results, imaging results and other diagnostic exam results were reviewed in the EMR. EKG Interpretation Critical Care Time None ? Medical Decision Making Medications methylPREDNISolone sodium succ (SOLU-Medrol) injection 125 mg (125 mg intravenous Given 08/24/241921) famotidine (PF) (PEPCID) injection 20 mg (20 mg intravenous Given 08/24/241924) diphenhydrAMINE (BENADRYL) injection 25 mg (25 mg intravenous Given 08/24/241922) Patient was evaluated. Initially given the fact that the patient has some urticaria we are treatingwith steroids Pepcid and Benadryl. However, when gathering more information from the patient and the family that she has been experiencing hives every other day since April I feel the safe prudent measure is to treat this is if it is an CAROLEE inhibitor angioedema and treat with FFP and hospitalizedovernight for observation. Clinical Impressions as of 08/24/24 2304 Angioedema, initial encounter Procedures Procedures Diagnosis No diagnosis found. Disposition Data Unavailable ED Prescriptions None Physician Attestation This is a split/shared visit with MERLE Deleon. I personally performed the medical decision making (MDM) for the care of this patient on 08/24/24 as documented below 69 present for angioedema of tongue admitted for observation. Mariaelena Ya DO 08/25/24 3:01 PM EST DO Oscar Salvador PA 08/24/24 1934 MERLE Deleon 08/24/24 2304 Mariaelena Ya DO 08/25/24 1501 documented in this encounter Plan of Treatment Pending Results Name Type Priority Associated Diagnoses Date /Time Tryptase Lab Routine 08/24/2024 10: 00 PM EST Scheduled Orders Name Type Priority Associated Diagnoses Orde r Schedule Tryptase Lab Routine Once for 1 Occ urrences starting 08/24/2024 until 08/24/2024 documented as of this encounter Procedures Procedure Name Priority Date/Time Associated Diagnosis Comments POCT GLUCOSE BLOOD Routine 08/25/2024 10 :45 AM EST POCT GLUCOSE BLOOD Routine 08/25/2024 7: 52 AM EST CBC WITH AUTO DIFFERENTIAL Routine 08/25/2024 5:12 AM EST CBC AND DIFFERENTIAL Routine 08/25/2024 5:12 AM EST BASIC METABOLIC PANEL Routine 08/25/2024 5:12 AM EST TRANSFUSE PLASMA Routine 08/25/2024 12:2 8 AM EST TRANSFUSE PLASMA Routine 08/24/2024 10:1 8 PM EST POCT GLUCOSE BLOOD Routine 08/24/2024 10 :11 PM EST COMPLETE BLOOD COUNT STAT 08/24/2024 7:42 PM EST BASIC METABOLIC PANEL STAT 08/24/2024 7:42 PM EST LT GREEN - LI HEPARIN Routine 08/24/2024 7:41 PM EST EXTRA TUBES Routine 08/24/2024 7:41 PM EST TYPE AND SCREEN STAT 08/24/2024 7:41 PM EST PREPARE PLASMA Routine 08/24/2024 7:37 PM EST documented in this encounter Results * (ABNORMAL) POCT Glucose, blood (08/25/2024 10:45 AM EST) [facility] Signature Glucose POCT 306(H) 70 - 100 mg/dL 08/25/2024 10:46 AM EST [facility] Blood Capillary blood specimen / Unknown 08/25/2024 10:45 AM EST 08/25/2024 10:47 AM EST us Abdi Raymundo MD LAB POINT O F CARE TEST DOCKED DEVICE UNSOLICITED RESULTS Final Result Performing Organization Address [facility]/ZIP Co de Phone Number [facility] [address] [place] [address], [place] [phone] * (ABNORMAL) POCT Glucose, blood (08/25/2024 7:52 AM EST) [facility] Glucose POCT 265(H) 70 - 100 mg/dL 08/25/2024 7:53 AM [facility] Blood Capillary blood specimen / Unknown 08/25/2024 7:52 AM EST 08/25/2024 7:54 AM EST us Abdi Raymundo MD LAB POINT O F CARE TEST DOCKED DEVICE UNSOLICITED RESULTS Final Result Performing Organization Address [facility]/ZIP Co de Phone Number [facility] [address] [place] [address], [place] [phone] * (ABNORMAL) CBC auto differential (08/25/2024 5:12 AM EST) [facility] WBC 9.4 4.8 - 10.8 K/mcL LAB HEMETOLOGY METHOD 08/25/2024 7:32 AM [facility] RBC 3.60(L) 3.80 - 4.80 M/mcL LAB HEMETOLOGY METHOD 08/25/2024 7:32 AM [facility] Hemoglobin 10.5(L) 11.5 - 16.0 g/dL LAB HEMETOLOGY METHOD 08/25/2024 7:32 AM [facility] Hematocrit 33.1(L) 35.0 - 47.0 % LAB HEMETOLOGY METHOD 08/25/2024 7:32 AM [facility] MCV 93.2 79.0 - 98.0 FL LAB HEMETOLOGY METHOD 08/25/2024 7:32 AM [facility] MCH 29.6 27.0 - 32.0 pcg LAB HEMETOLOGY METHOD 08/25/2024 7:32 AM [facility] MCHC 31.7(L) 32.0 - 37.0 g/dL LAB HEMETOLOGY METHOD 08/25/2024 7:32 AM [facility] RDW 13.2 11.0 - 15.0 % LAB HEMETOLOGY METHOD 08/25/2024 7:32 AM [facility] Platelets 409(H) 130 - 400 K/mcL LAB HEMETOLOGY METHOD 08/25/2024 7:32 AM [facility] MPV 10.4 7.0 - 11.0 FL LAB HEMETOLOGY METHOD 08/25/2024 7:32 AM [facility] NRBC 0.0 <1.0 % LAB HEMETOLOGY METHOD 08/25/2024 7:32 AM [facility] NRBC Absolute 0.00 <0.10 K/mcL LAB HEMETOLOGY METHOD 08/25/2024 7:32 AM [facility] Neutrophils Relative 83.9 % LAB HEMETOLOGY METHOD 08/25/2024 7:32 AM [facility] Lymphocytes Relative 14.2 % LAB HEMETOLOGY METHOD 08/25/2024 7:32 AM [facility] Monocytes Relative 1.3 % LAB HEMETOLOGY METHOD 08/25/2024 7:32 AM [facility] Eosinophils Relative 0.0 % LAB HEMETOLOGY METHOD 08/25/2024 7:32 AM [facility] Basophils Relative 0.1 % LAB HEMETOLOGY METHOD 08/25/2024 7:32 AM [facility] Immature Granulocytes Relative 0.5 % LAB HEMETOLOGY METHOD 08/25/2024 7:32 AM [facility] Neutrophils Absolute 7.91(H) 1.50 - 7.00 K/mcL LAB HEMETOLOGY METHOD 08/25/2024 7:32 AM EST [facility] Lymphocytes Absolute 1.34 1.00 - 5.00 K/mcL LAB HEMETOLOGY METHOD 08/25/2024 7:32 AM EST [facility] Monocytes Absolute 0.12(L) 0.20 - 1.00 K/mcL LAB HEMETOLOGY METHOD 08/25/2024 7:32 AM EST [facility] Eosinophils Absolute 0.00 0.00 - 0.50 K/mcL LAB HEMETOLOGY METHOD 08/25/2024 7:32 AM EST [facility] Basophils Absolute 0.01 0.00 - 0.20 K/mcL LAB HEMETOLOGY METHOD 08/25/2024 7:32 AM [facility] Immature Granulocytes Absolute 0.05(H) 0.00 - 0.03 K/mcL LAB HEMETOLOGY METHOD 08/25/2024 7:32 AM [facility] Blood Venous blood specimen / Unknown Venipuncture / Unknown 08/25/2024 5:12 AM EST 08/25/2024 7:05 AM EST us Jemal Padilla MD LAB BLOOD ORDERABLES Final Result [facility] [address] [place] [address], * (ABNORMAL) Basic metabolic panel (08/25/2024 5:12 AM EST) Sodium 137 133 - 145 mmol/L LAB CHEMISTRY METHOD 08/25/2024 7:51 AM EST [facility] Potassium 4.6 3.5 - 5.5 mmol/L LAB CHEMISTRY METHOD 08/25/2024 7:51 AM [facility] Chloride 108 96 - 110 mmol/L LAB CHEMISTRY METHOD 08/25/2024 7:51 AM [facility] CO2 24 21 - 32 mmol/L LAB CHEMISTRY METHOD 08/25/2024 7:51 AM [facility] Anion Gap 5 3 - 11 LAB CHEMISTRY METHOD 08/25/2024 7:51 AM [facility] Glucose 288(H) 70 - 100 mg/dL LAB CHEMISTRY METHOD 08/25/2024 7:51 AM [facility] BUN 19 5 - 25 mg/dL LAB CHEMISTRY METHOD 08/25/2024 7:51 AM [facility] Creatinine 0.79 0.50 - 1.10 mg/dL LAB CHEMISTRY METHOD 08/25/2024 7:51 AM [facility] eGFR 81 >=60 mL/min/1. 73m2 LAB CHEMISTRY METHOD 08/25/2024 7:51 AM [facility] Comment:Calculation based on the??Chronic Kidney Disease Epidemiology Collaboration (CKD-EPI) equation refit??without adjustment for race. BUN/Creatinine Ratio 24.1 LAB CHEMISTRY METHOD 08/25/2024 7:51 AM [facility] Calcium 8.8 8.5 - 10.5 mg/dL LAB CHEMISTRY METHOD 08/25/2024 7:51 AM [facility] Blood Venous blood specimen / Unknown Venipuncture / Unknown 08/25/2024 5:12 AM EST 08/25/2024 7:07 AM EST us Jemal Padilla MD LAB BLOOD ORDERABLES Final Result [facility] [address] [place] [address], * Transfuse Plasma (08/25/2024 4:04 AM EST) us Jemal Padilla MD BLOOD TRANSFUSION ORDERABLE S Final Result * Transfuse Plasma: 2 Units (08/25/2024 4:04 AM EST) us Jemal Padilla MD BLOOD TRANSFUSION ORDERABLE S Final Result * Transfuse Plasma (08/25/2024 12:26 AM EST) us Jemal Padilla MD BLOOD TRANSFUSION ORDERABLE S Final Result * (ABNORMAL) POCT Glucose, blood (08/24/2024 10:11 PM EST) Glucose POCT 157(H) 70 - 100 mg/dL 08/24/2024 10:13 PM EST [facility] Blood Capillary blood specimen / Unknown 08/24/2024 10:11 PM EST 08/24/2024 10:14 PM EST Jemal Padilla MD LAB POINT OF CARE T EST DOCKED DEVICE UNSOLICITED RESULTS Final Result [facility] [address] [place] [address], * (ABNORMAL) CBC (08/24/2024 7:42 PM EST) Pathologist [facility] WBC 10.5 4.8 - 10.8 K/mcL LAB HEMETOLOGY METHOD 08/24/2024 8:42 PM [facility] RBC 3.40(L) 3.80 - 4.80 M/mcL LAB HEMETOLOGY METHOD 08/24/2024 8:42 PM [facility] Hemoglobin 10.3(L) 11.5 - 16.0 g/dL LAB HEMETOLOGY METHOD 08/24/2024 8:42 PM [facility] Hematocrit 32.1(L) 35.0 - 47.0 % LAB HEMETOLOGY METHOD 08/24/2024 8:42 PM [facility] MCV 94.4 79.0 - 98.0 FL LAB HEMETOLOGY METHOD 08/24/2024 8:42 PM [facility] MCH 30.3 27.0 - 32.0 pcg LAB HEMETOLOGY METHOD 08/24/2024 8:42 PM EST [facility] MCHC 32.1 32.0 - 37.0 g/dL LAB HEMETOLOGY METHOD 08/24/2024 8:42 PM EST [facility] RDW 13.2 11.0 - 15.0 % LAB HEMETOLOGY METHOD 08/24/2024 8:42 PM [facility] Platelets 434(H) 130 - 400 K/mcL LAB HEMETOLOGY METHOD 08/24/2024 8:42 PM EST [facility] MPV 10.3 7.0 - 11.0 FL LAB HEMETOLOGY METHOD 08/24/2024 8:42 PM [facility] NRBC 0.0 <1.0 % LAB HEMETOLOGY METHOD 08/24/2024 8:42 PM [facility] NRBC Absolute 0.00 <0.10 K/mcL LAB HEMETOLOGY METHOD 08/24/2024 8:42 PM [facility] Blood Venous blood specimen / Unknown Venipuncture / Unknown 08/24/2024 7:42 PM EST 08/24/2024 8:34 PM EST Oscar BLOOM LAB BLOOD ORDERABLES Final R esult [facility] [address] [place] [address], * (ABNORMAL) Basic Metabolic Panel (BMP) (08/24/2024 7:42 PM EST) Sodium 137 133 - 145 mmol/L LAB CHEMISTRY METHOD 08/24/2024 9:00 PM EST [facility] Potassium 4.5 3.5 - 5.5 mmol/L LAB CHEMISTRY METHOD 08/24/2024 9:00 PM [facility] Chloride 107 96 - 110 mmol/L LAB CHEMISTRY METHOD 08/24/2024 9:00 PM [facility] CO2 24 21 - 32 mmol/L LAB CHEMISTRY METHOD 08/24/2024 9:00 PM [facility] Anion Gap 6 3 - 11 LAB CHEMISTRY METHOD 08/24/2024 9:00 PM [facility] Glucose 129(H) 70 - 100 mg/dL LAB CHEMISTRY METHOD 08/24/2024 9:00 PM [facility] BUN 23 5 - 25 mg/dL LAB CHEMISTRY METHOD 08/24/2024 9:00 PM [facility] Creatinine 0.77 0.50 - 1.10 mg/dL LAB CHEMISTRY METHOD 08/24/2024 9:00 PM [facility] eGFR 84 >=60 mL/min/1. 73m2 LAB CHEMISTRY METHOD 08/24/2024 9:00 PM [facility] Comment:Calculation based on the??Chronic Kidney Disease Epidemiology Collaboration (CKD-EPI) equation refit??without adjustment for race. BUN/Creatinine Ratio 29.9 LAB CHEMISTRY METHOD 08/24/2024 9:00 PM [facility] Calcium 9.0 8.5 - 10.5 mg/dL LAB CHEMISTRY METHOD 08/24/2024 9:00 PM [facility] Blood Venous blood specimen / Unknown Venipuncture / Unknown 08/24/2024 7:42 PM EST 08/24/2024 8:33 PM EST us Oscar BLOOM LAB BLOOD ORDERABLES Final R esult [facility] [address] [place] [address], * Green LI heparin tube (08/24/2024 7:41 PM EST) Extra Tube Hold for add-ons. 08/24/2024 10:01 PM EST [facility] Comment:Auto resulted. Blood Venous blood specimen / Unknown 08/24/2024 7:41 PM EST 08/24/2024 8:33 PM EST Mariaelena Salomonny Felton [facility] BLOOD ORDERABLES Kiki l Result Performing Organization Address [facility]/ZIP Co de Phone Number [facility] [address] [place] [address], [place] [phone] * Type and screen (08/24/2024 7:41 PM EST) ABO Group A 08/24/2024 9:19 PM EST [facility] Rh Type Positive 08/24/2024 9:19 PM EST [facility] Antibody Screen Negative 08/24/2024 9:19 PM EST [facility] Blood Venous blood specimen / Unknown Venipuncture / Unknown 08/24/2024 7:41 PM EST 08/24/2024 8:32 PM EST Oscar BLOOM LAB BLOOD BANK TEST ORDERABL ES Final Result Performing Organization Address [facility]/ZIP Co de Phone Number [facility] [address] [place] [address], [place] [phone] * Prepare Plasma: 2 Units (08/24/2024 7:37 PM EST) Product Code [id number] 08/24/2024 10:24 PM EST [facility] Unit Number [id number] 08/24/19 10:24 PM EST [facility] Dispense Status Transfused 08/24/2024 10:24 PM EST [facility] Unit ABO Rh APOS 08/24/2024 10:24 PM EST [facility] Unit Expiration Date Time [id number] 08/24/2024 10:24 PM EST [facility] Unit Blood Type 6200 08/24/2024 10:24 PM EST [facility] Product Code [id number] 08/25/2024 12:32 AM [facility] Unit Number [id number] 08/25/19 12:32 AM [facility] Dispense Status Transfused 08/25/2024 12:32 AM [facility] Unit ABO Rh APOS 08/25/2024 12:32 AM [facility] Unit Expiration Date Time [id number] 08/25/2024 12:32 AM [facility] Unit Blood Type 6200 08/25/2024 12:32 AM [facility] Blood Venous blood specimen / Unknown 08/24/2024 7:37 PM EST [facility] PRODUCT ORDERABLE S Final Result [facility] [address] [place] [address], documented in this encounter Visit Diagnoses Diagnosis Angioedema- Primary Angioneurotic edema not elsewhere classified Angioedema, initial encounter documented in this encounter Admitting Diagnoses Diagnosis Angioedema Angioneurotic edema not elsewhere classified documented in this encounter Administered Medications Inactive Administered Medications - up to 3 most recent administrations Medication Order MAR Action Action Date Dose Rate Site diphenhydrAMINE (BENADRYL) injection 25 mg 25 mg, intravenous, Once, On 08/24/24 at 1915, For 1 dose Given 08/24/2024 7:23 PM EST 25 mg diphenhydrAMINE (BENADRYL) injection 25 mg 25 mg, intravenous, Every 6 hours PRN, allergies, Starting on 08/24/24 at 2318 famotidine (PF) (PEPCID) injection 20 mg 20 mg, intravenous, Administer over 2 Minutes, Once, On 08/24/24 at 1915, For 1 dose Given 08/24/2024 7:25 PM EST 20 mg insulin glargine (LANTUS) injection 15 Units 15 Units, subcutaneous, Nightly, First dose on 08/25/24 at 0030, Notify provider: -If patient is currently or will become NPO -If TPN was or will be interrupted or discontinued -For approval to hold long acting insulin Given 08/24/2024 11:38 PM EST 15 Units Left Upper Arm (Back) insulin lispro injection 2-12 Units 2-12 Units, subcutaneous, 4 times daily before meals and nightly, First dose on 08/24/24 at 2306, Indication: Total Daily Dose (TDD) 40 - 80 units. Correction Scale: Moderate Dose Administer with meal and/or mealtime dose of insulin to correct high blood glucose If mealtime insulin dose not given (e.g. patient NPO or not eating), still administer correction factor for high blood glucose Given 08/25/2024 11:08 AM EST 8 Units Left Upper Arm (Back) Given 08/25/2024 8:36 AM EST 6 Units Le ft Upper Arm (Back) Given 08/24/2024 11:39 PM EST 2 Units R ight Upper Arm (Back) methylPREDNISolone sodium succ (SOLU-Medrol) injection 125 mg 125 mg, intravenous, Once, On 08/24/24 at 1915, For 1 dose, Reconstitute each 125 mg vial with 2 mL sterile water for injection to a concentration of 62.5 mg/mL. Given 08/24/2024 7:22 PM EST 125 mg methylPREDNISolone sodium succ (SOLU-Medrol) injection 40 mg 40 mg, intravenous, Every 6 hours PRN, allergic reaction/angioedema, Starting on 08/25/24 at 0035, Reconstitute each 40 mg vial with 1 mL sterile water for injection to a concentration of 40 mg/mL. ondansetron (PF) (ZOFRAN) injection 4 mg 4 mg, intravenous, Every 8 hours PRN, vomiting, nausea, Starting on 08/24/24 at 2156, -ONLY give IV if patient is unable to take orally. -If inadequate response within 30 minutes, proceed to next-line agent or contact provider if no further options ordered. ondansetron ODT (ZOFRAN-ODT) disintegrating tablet 4 mg 4 mg, oral, Every 8 hours PRN, vomiting, nausea, Starting on 08/24/24 at 2156, -Give IV if patient is unable to take orally. -If inadequate response within 30 minutes, proceed to next-line agent or contact provider if no further options ordered. For ODT tablets: -Do not remove from blister pack until just before administering. -Patient should allow tablet to dissolve on tongue. prochlorperazine (COMPAZINE) injection 10 mg 10 mg, intravenous, Every 6 hours PRN, nausea, vomiting, Starting on 08/24/24 at 2156, 2nd Line Option: -ONLY give IV if patient is unable to take orally. -Give IM if patient does not have IV Access -If inadequate response within 30 minutes, proceed to next-line agent or contact provider if no further options ordered. prochlorperazine (COMPAZINE) suppository 25 mg 25 mg, rectal, Every 12 hours PRN, nausea, vomiting, Starting on 08/24/24 at 2156, 2nd Line Option: -ONLY give NV if patient is unable to take orally and cannot receive IV/IM. -If inadequate response within 30 minutes, proceed to next-line agent or contact provider if no further options ordered. prochlorperazine (COMPAZINE) tablet 10 mg 10 mg, oral, Every 6 hours PRN, nausea, vomiting, Starting on 08/24/24 at 2156, 2nd Line Option: -Give IV or IM if patient is unable to take orally. -If inadequate response within 30 minutes, proceed to next-line agent or contact provider if no further options ordered. sodium chloride 0.9 % flush 10 mL 10 mL, intravenous, 2 times daily, First dose on 08/24/24 at 2157 Given 08/25/2024 8:37 AM EST 10 mL Given 08/24/2024 10:24 PM EST 10 mL sodium chloride 0.9 % flush 10 mL 10 mL, intravenous, As needed, line care, Starting on 08/24/24 at 2156 Given 08/25/2024 8:37 AM EST 10 mL sodium chloride 0.9 % infusion 42 mL/hr, intravenous, As needed, pre-, and post- transfusion as needed for line flush purposes, in conjunction with blood product transfusion only, Starting on 08/24/24 at 1936, -Use only the amount required from a 250 mL bag of NS to adequately flush -A new NS bag is required with each new unit of blood administered sodium chloride 0.9 % infusion 75 mL/hr, intravenous, Continuous, Starting on 08/24/24 at 2330, For 13 hours Rate/Dose Verify 08/25/2024 6:32 AM EST 75 mL/hr 75 mL/hr New Bag 08/24/2024 11:40 PM EST 75 mL/hr 75 mL/hr documented in this encounter Discontinued Medications Medication Sig Discontinue Reason Start Date End Da te lisinopriL (PRINIVIL,ZESTRIL) 5 mg tablet Take 1 tablet (5 mg total) by mouth 1 (one) time each day. Stop Taking at Discharge 05/18/2023 08/25/2024 famotidine (PEPCID) 20 mg tablet Take 1 tablet (20 mg total) by mouth at bedtime. 05/18/2023 08/25/2024 documented as of this encounter Historical Medications * This list may reflect changes made after this encounter. metFORMIN (GLUCOPHAGE) 1,000 mg tablet Take 1 tablet (1,000 mg total) by mouth 2 (two) times a day with meals. 05/18/2023 NovoLOG Flexpen U-100 Insulin 100 unit/mL (3 mL) injection pen Inject 0-10 Units under the skin 3 (three) times a day before meals. 08/25/2023 Lantus Solostar U-100 Insulin 100 unit/mL (3 mL) injection pen Inject 24 Units under the skin at bedtime. 08/25/2023 gabapentin (NEURONTIN) 300 mg capsule Take 1 capsule (300 mg total) by mouth 2 (two) times a day. 05/18/2023 escitalopram (LEXAPRO) 20 mg tablet Take 1 tablet (20 mg total) by mouth 1 (one) time each day. 05/18/2023 cholecalciferol (VITAMIN D-3) 50 mcg (2,000 unit) capsule Take 1 capsule (2,000 Units total) by mouth 1 (one) time each day. 05/18/2023 atorvastatin (LIPITOR) 20 mg tablet Take 1 tablet (20 mg total) by mouth at bedtime. 05/18/2023 lisinopriL (PRINIVIL,ZESTRIL ) 5 mg tablet Take 1 tablet (5 mg total) by mouth 1 (one) time each day. 05/18/2023 08/25/2024 famotidine (PEPCID) 20 mg tablet Take 1 tablet (20 mg total) by mouth at bedtime. 05/18/2023 08/25/2024 added in this encounter Active and Recently Administered Medications Times are shown in EST. Scheduled Medication Order 08/23/2024 08/24/2024 08/25/2024 diphenhydrAMINE (BENADRYL) injection 25 mg (COMPLETED) 25 mg, intravenous, Once, On 08/24/24 at 1915, For 1 dose 1922 (Given - Provider: Lizzy Barbosa, SOTO) enoxaparin (LOVENOX) injection 40 mg 40 mg, subcutaneous, Every 24 hours scheduled, First dose on 08/25/24 at 0900, Indication: VTE/PE Prophylaxis 0841 (Not Given - Provider: Demarcus Hodges RN - Reason: Patient/Resident/Agent refused - education provided ) famotidine (PF) (PEPCID) injection 20 mg (COMPLETED) 20 mg, intravenous, Administer over 2 Minutes, Once, On 08/24/24 at 1915, For 1 dose 1924 (Given - Provider: Lizzy Barbosa, SOTO) insulin glargine (LANTUS) injection 15 Units 15 Units, subcutaneous, Nightly, First dose on 08/25/24 at 0030, Notify provider: -If patient is currently or will become NPO -If TPN was or will be interrupted or discontinued -For approval to hold long acting insulin 233 (Given - Provider: Lizzy Barbosa, SOTO) insulin lispro injection 2-12 Units 2-12 Units, subcutaneous, 4 times daily before meals and nightly, First dose on 08/24/24 at 2306, Indication: Total Daily Dose (TDD) 40 - 80 units. Correction Scale: Moderate Dose Administer with meal and/or mealtime dose of insulin to correct high blood glucose If mealtime insulin dose not given (e.g. patient NPO or not eating), still administer correction factor for high blood glucose 233 (Given - Provider: Lizzy Barbosa RN) 0836 (Given - Provider: Demarcus Hodges, RN)1108 (Given - Provider: Demarcus Hodges, SOTO) methylPREDNISolone sodium succ (SOLU-Medrol) injection 125 mg (COMPLETED) 125 mg, intravenous, Once, On 08/24/24 at 1915, For 1 dose, Reconstitute each 125 mg vial with 2 mL sterile water for injection to a concentration of 62.5 mg/mL. 1922 (Given - Provider: Lizzy Barbosa, SOTO) sodium chloride 0.9 % flush 10 mL(Linked Group 1) 10 mL, intravenous, 2 times daily, First dose on 08/24/24 at 2157 2224 (Given - Provider: Lizzy Barbosa, SOTO) 0837 (Given - Provider: Demarcus Hodges, SOTO) Continuous Medication Order 08/23/2024 08/24/2024 08/25/2024 sodium chloride 0.9 % infusion 75 mL/hr, intravenous, Continuous, Starting on 08/24/24 at 2330, For 13 hours 2340 (New Bag - Provider: Lizzy Barbosa RN) 0632 (Rate/Dose Verify - Provider: Paola Hernandez, SOTO)1101 (Stopped - Provider: Demarcus Hodges, SOTO) PRN Medication Order 08/23/2024 08/24/2024 08/25/2024 acetaminophen (TYLENOL) tablet 650 mg 650 mg, oral, Every 4 hours PRN, mild pain, headaches, fever - temperature GREATER than 38 C (100.4 F), Starting on 08/24/24 at 2156 dextrose (D50W) 50% injection 12.5 g 12.5 g, intravenous, Every 15 min PRN, low blood sugar, moderate hypoglycemia *Patient is Unconscious, NPO, unable to swallow: BG 54 - 69 mg/dl*, Starting on 08/24/24 at 2143 dextrose (D50W) 50% injection 25 g 25 g, intravenous, Every 15 min PRN, low blood sugar, severe hypoglycemia *Patient is Unconscious, NPO, unable to swallow: BG LESS than 54 mg/dL*, Starting on 08/24/24 at 2143 dextrose 15 gram/60 mL oral solution 15 g 15 g, oral, Every 15 min PRN, low blood sugar, hypoglycemia *Patient conscious AND able to drink and swallow safely*, Starting on 08/24/24 at 2143 dextrose 15 gram/60 mL oral solution 30 g 30 g, oral, Every 15 min PRN, low blood sugar, hypoglycemia *Patient conscious AND able to drink and swallow safely*, Starting on 08/24/24 at 2143 diphenhydrAMINE (BENADRYL) injection 25 mg 25 mg, intravenous, Every 6 hours PRN, allergies, Starting on 08/24/24 at 2318 Glucagon HCl (rDNA) injection 1 mg 1 mg, intramuscular, Once as needed, low blood sugar, severe hypoglycemia, Starting on 08/24/24 at 2156, For 1 dose methylPREDNISolone sodium succ (SOLU-Medrol) injection 40 mg 40 mg, intravenous, Every 6 hours PRN, allergic reaction/angioedema, Starting on 08/25/24 at 0035, Reconstitute each 40 mg vial with 1 mL sterile water for injection to a concentration of 40 mg/mL. ondansetron (PF) (ZOFRAN) injection 4 mg(Linked Group 2) 4 mg, intravenous, Every 8 hours PRN, vomiting, nausea, Starting on 08/24/24 at 2156, -ONLY give IV if patient is unable to take orally. -If inadequate response within 30 minutes, proceed to next-line agent or contact provider if no further options ordered. ondansetron ODT (ZOFRAN-ODT) disintegrating tablet 4 mg(Linked Group 2) 4 mg, oral, Every 8 hours PRN, vomiting, nausea, Starting on 08/24/24 at 2156, -Give IV if patient is unable to take orally. -If inadequate response within 30 minutes, proceed to next-line agent or contact provider if no further options ordered. For ODT tablets: -Do not remove from blister pack until just before administering. -Patient should allow tablet to dissolve on tongue. prochlorperazine (COMPAZINE) injection 10 mg(Linked Group 3) 10 mg, intravenous, Every 6 hours PRN, nausea, vomiting, Starting on 08/24/24 at 2156, 2nd Line Option: -ONLY give IV if patient is unable to take orally. -Give IM if patient does not have IV Access -If inadequate response within 30 minutes, proceed to next-line agent or contact provider if no further options ordered. prochlorperazine (COMPAZINE) suppository 25 mg(Linked Group 3) 25 mg, rectal, Every 12 hours PRN, nausea, vomiting, Starting on 08/24/24 at 2155, 2nd Line Option: -ONLY give NV if patient is unable to take orally and cannot receive IV/IM. -If inadequate response within 30 minutes, proceed to next-line agent or contact provider if no further options ordered. prochlorperazine (COMPAZINE) tablet 10 mg(Linked Group 3) 10 mg, oral, Every 6 hours PRN, nausea, vomiting, Starting on 08/24/24 at 2155, 2nd Line Option: -Give IV or IM if patient is unable to take orally. -If inadequate response within 30 minutes, proceed to next-line agent or contact provider if no further options ordered. sodium chloride 0.9 % flush 10 mL(Linked Group 1) 10 mL, intravenous, As needed, line care, Starting on 08/24/24 at 2155 0837 (Given - Provid er: Demarcus Hodges RN) sodium chloride 0.9 % infusion 42 mL/hr, intravenous, As needed, pre-, and post- transfusion as needed for line flush purposes, in conjunction with blood product transfusion only, Starting on 08/24/24 at 1936, -Use only the amount required from a 250 mL bag of NS to adequately flush -A new NS bag is required with each new unit of blood administered Linked Groups Order Group 1: Insert peripheral IV (COMPLETED) STAT, Once, On 08/24/24 at 2156, For 1 occurrence And Maintain IV access (CANCELED) Until discontinued, Starting on 08/24/24 at 2156, Until Specified And Saline lock IV (COMPLETED) Routine, Once, On 08/24/24 at 2156, For 1 occurrence And sodium chloride 0.9 % flush 10 mLJump to med 10 mL, intravenous, 2 times daily, First dose on 08/24/24 at 2156 And sodium chloride 0.9 % flush 10 mLJump to med 10 mL, intravenous, As needed, line care, Starting on 08/24/24 at 2155 Group 2: ondansetron ODT (ZOFRAN-ODT) disintegrating tablet 4 mgJump to med 4 mg, oral, Every 8 hours PRN, vomiting, nausea, Starting on 08/24/24 at 2156, -Give IV if patient is unable to take orally. -If inadequate response within 30 minutes, proceed to next-line agent or contact provider if no further options ordered. For ODT tablets: -Do not remove from blister pack until just before administering. -Patient should allow tablet to dissolve on tongue. Or ondansetron (PF) (ZOFRAN) injection 4 mgJump to med 4 mg, intravenous, Every 8 hours PRN, vomiting, nausea, Starting on 08/24/24 at 2156, -ONLY give IV if patient is unable to take orally. -If inadequate response within 30 minutes, proceed to next-line agent or contact provider if no further options ordered. Group 3: prochlorperazine (COMPAZINE) tablet 10 mgJump to med 10 mg, oral, Every 6 hours PRN, nausea, vomiting, Starting on 08/24/24 at 2156, 2nd Line Option: -Give IV or IM if patient is unable to take orally. -If inadequate response within 30 minutes, proceed to next-line agent or contact provider if no further options ordered. Or prochlorperazine (COMPAZINE) injection 10 mgJump to med 10 mg, intravenous, Every 6 hours PRN, nausea, vomiting, Starting on 08/24/24 at 2156, 2nd Line Option: -ONLY give IV if patient is unable to take orally. -Give IM if patient does not have IV Access -If inadequate response within 30 minutes, proceed to next-line agent or contact provider if no further options ordered. Or prochlorperazine (COMPAZINE) suppository 25 mgJump to med 25 mg, rectal, Every 12 hours PRN, nausea, vomiting, Starting on 08/24/24 at 2156, 2nd Line Option: -ONLY give NV if patient is unable to take orally and cannot receive IV/IM. -If inadequate response within 30 minutes, proceed to next-line agent or contact provider if no further options ordered. documented in this encounter Orders Medications Ordered That Zay ht Not Have Been Administered Count Last Ordered Date First Ordered Date acetaminophen (TYLENOL) tablet 650 mg 1 02/2025 dextrose (D50W) 50% injection 12.5 g 1 02/2025 dextrose (D50W) 50% injection 25 g 1 2024 dextrose 15 gram/60 mL oral solution 15 g 1 08/24/2024 dextrose 15 gram/60 mL oral solution 30 g 1 08/24/2024 diphenhydrAMINE (BENADRYL) injection 25 mg 1 08/24/2024 enoxaparin (LOVENOX) injection 40 mg 1 02/2025 Glucagon HCl (rDNA) injection 1 mg 1 2024 methylPREDNISolone sodium payne cc (SOLU-Medrol) injection 40 mg 1 08/24/2024 ondansetron (PF) (ZOFRAN) injection 4 mg 1 08/24/2024 ondansetron ODT (ZOFRAN-ODT) disintegrating tablet 4 mg 1 08/24/2024 prochlorperazine (COMPAZINE) injection 10 mg 1 08/24/2024 prochlorperazine (COMPAZINE) suppository 25 mg 1 08/24/2024 prochlorperazine (COMPAZINE) tablet 10 mg 1 08/24/2024 sodium chloride 0.9 % infusion 1 08/24/2024 Lab Orders Without Results Count Last Ordered D ate First Ordered Date POCT GLUCOSE, BLOOD 3 08/25/2024 08/24/19 25 Nursing Count Last Ordered Date First Orde red Date NOTIFY PROVIDER - INDICATE REASON 1 025 [id number] 08/24/2024 VITAL SIGNS 1 08/24/2024 IV Count Last Ordered Date First Orde red Date INSERT PERIPHERAL IV 1 08/24/2024 SALINE LOCK IV 1 08/24/2024 Admission Count Last Ordered Date First Orde red Date INITIATE OBSERVATION STATUS 1 08/24/2024 Transfer Count Last Ordered Date First Orde red Date ED TO FLOOR BED REQUEST 1 08/24/2024 Discharge Count Last Ordered Date First Orde red Date DISCHARGE PATIENT 1 08/25/2024 documented in this encounter Care Teams Skin Tanner Relationship Specialty Start Date End Date Presley Perez MD [address] [place] [address] [address] [facility] [place] [address] PCP - General 05/15/23 documented as of this encounter
--- OUTSIDE RECORDS SUMMARY | 2024-08-27 12:09 | XMS_ITS | Clinical Summary ---
Author Organization [facility] Address [address] [place] [address] Phone Care Team Providers Care Web Design Intern Name Role Phone Presley Perez MD Primary Care Provider [phone] Allergies Active Allergy Reactions Criticality Noted Date Comments Amoxicillin Hives Medium 08/24/2024 Nutritional Supplement-Fiber Nausea And Vomiting Medium 08/24/2024 Lisinopril Angioedema High 08/25/2024 Medications atorvastatin (LIPITOR) 20 mg tablet Take 1 tablet (20 mg total) by mouth at bedtime. 05/18/20 23 Active cholecalcifero l (VITAMIN D-3) 50 mcg (2,000 unit) capsule Take 1 capsule (2,000 Units total) by mouth 1 (one) time each day. 05/18/20 23 Active escitalopram (LEXAPRO) 20 mg tablet Take 1 tablet (20 mg total) by mouth 1 (one) time each day. 05/18/20 23 Active gabapentin (NEURONTIN) 300 mg capsule Take 1 capsule (300 mg total) by mouth 2 (two) times a day. 05/18/20 23 Active Lantus Solostar U-100 Insulin 100 unit/mL (3 mL) injection pen Inject 24 Units under the skin at bedtime. 08/25/19 24 Active NovoLOG Flexpen U-100 Insulin 100 unit/mL (3 mL) injection pen Inject 0-10 Units under the skin 3 (three) times a day before meals. 08/25/19 24 Active metFORMIN (GLUCOPHAGE) 1,000 mg tablet Take 1 tablet (1,000 mg total) by mouth 2 (two) times a day with meals. 05/18/20 23 Active famotidine (PEPCID) 20 mg tablet Take 1 tablet (20 mg total) by mouth 2 (two) times a day for 14 days, THEN 1 tablet (20 mg total) at bedtime. 58 each 08/25/19 25 025 Active EPINEPHrine (EPIPEN) 0.3 mg/0.3 mL injection Inject 0.3 mL (0.3 mg total) into the thigh if needed for anaphylaxis . Call 911 after use. 1 each 08/25/19 25 025 Active famotidine (PEPCID) 20 mg tablet Take 1 tablet (20 mg total) by mouth at bedtime. 05/18/20 23 025 Discontinued lisinopriL (PRINIVIL,ZEST RIL) 5 mg tablet Take 1 tablet (5 mg total) by mouth 1 (one) time each day. 05/18/20 025 Discontinued(St op Taking at Discharge) Active Problems Problem Noted Date Diagnosed Date Angioedema 08/24/2024 Encounters Date Type Department Care Team Description 08/24/2024 7:04 PM EST - 08/25/2024 11:39 AM EST Emergency [facility] Emergency [address] [place] [address] Mariaelena Ya DO Jones, Christopher, MD Kela, Kashyap Devendrabhai, MD Angioedema, initial encounter (Primary Dx) Discharge Disposition: Home or Self Care from Last 3 Months Medical History Medical History Date Comments DM (diabetes mellitus) ([facility]) HTN (hypertension) Social History Tobacco Use Types Packs/Day Years Used Date Smoking Tobacco: Former Cigarettes Q uit: 11/22/2022 Smokeless Tobacco: Never Comments Unknown Sex and Gender Information Value Date Recorded Sex Assigned at Female 08/24/2024 7:48 PM EST Legal Sex Female 8:46 PM EST Gender Identity Female 08/24/2024 7:48 PM EST Sexual Orientation Straight 08/24/2024 7: 48 PM EST Obstetrics History Last Filed Vital Signs Vital Sign Reading [...] Mass Index 24.51 08/24/2024 6:56 PM EST Plan of Treatment Health Maintenance Due Date Last Done Comments Breast Cancer Screening 1955 DTaP,Tdap,and Td Vaccines (1 - Tdap) 1962 Diabetes: Annual Foot Exam 1965 Diabetes: Annual Retina Eye Exam 1965 Pneumococcal Vaccine: 50+ Years (1 of 1 - PCV) 2005 Zoster Vaccines (1 of 2) 2005 RSV Immunization Patients 60 + Years Old (1 - Risk 60-74 years 1-dose series) 2015 Cholesterol Screening (Lipid Panel) 08/11/2023 Colorectal Cancer Screening: Colonoscopy 08/11/2023 Depression Screening 08/11/2023 Falls Risk Assessment 08/11/2023 Hepatitis C Screening 08/11/2023 Medicare Annual Wellness Visit 08/11/2023 Osteoporosis Screening (Bone Density Screening) 08/11/2023 Social Influencers of Health Screening 08/11/2023 COVID-19 Vaccine ( - 2023-2 5 season) 2024 Influenza Vaccine (#1) 2024 Diabetes: Annual Urine Albumin-Creatinine Ratio (uACR) 08/24/2024 Diabetes: Blood Sugar Contro l Test (HGBA1C) 08/24/2024 08/25/2023 Diabetes: Annual GFR (Glomerular Filtration Rate) 08/25/2025 08/25/2024, 08/24/2024 HIB Vaccines Aged Out No longer eligi ble based on patient's age to complete this topic HPV Vaccines Aged Out No longer eligi ble based on patient's age to complete this topic Hepatitis A Vaccines Aged Out No long er eligible based on patient's age to complete this topic Hepatitis B Vaccines Aged Out No long er eligible based on patient's age to complete this topic IPV Vaccines Aged Out No longer eligi ble based on patient's age to complete this topic MMR Vaccines Aged Out No longer eligi ble based on patient's age to complete this topic Meningococcal ACWY Vaccine Aged Out N o longer eligible based on patient's age to complete this topic Meningococcal B Vacine Aged Out No lo nger eligible based on patient's age to complete this topic RSV Immunization Patients Under 20 months Aged Out No longer eligible b ased on patient's age to complete this topic Varicella Vaccines Aged Out No longer eligible based on patient's age to complete this topic Procedures Procedure Name Priority Date/Time Associated Diagnosis [...] PREPARE PLASMA Routine 08/24/2024 7:37 PM EST from Last 3 Months Results * (ABNORMAL) POCT Glucose, blood (08/25/2024 10:45 AM EST) Only the most recent of3 resultswithin the time period is included. [facility] Glucose POCT 306(H) 70 - 100 mg/dL 08/25/2024 10:46 AM [facility] Blood Capillary blood specimen / Unknown 08/25/2024 10:45 AM EST 08/25/2024 10:47 AM EST Abdi Raymundo MD LAB POINT O F CARE TEST DOCKED DEVICE UNSOLICITED RESULTS Final Result [facility] [address] [place] [address], * (ABNORMAL) CBC auto differential (08/25/2024 5:12 AM EST) [facility] WBC 9.4 4.8 - 10.8 K/mcL LAB HEMETOLOGY METHOD 08/25/2024 7:32 AM [facility] RBC 3.60(L) 3.80 - 4.80 M/mcL LAB HEMETOLOGY METHOD 08/25/2024 7:32 AM [facility] Hemoglobin 10.5(L) 11.5 - 16.0 g/dL LAB HEMETOLOGY METHOD 08/25/2024 7:32 AM [facility] Hematocrit 33.1(L) 35.0 - 47.0 % LAB HEMETOLOGY METHOD 08/25/2024 7:32 AM [facility] MCV 93.2 79.0 - 98.0 FL LAB HEMETOLOGY METHOD 08/25/2024 7:32 AM [facility] MCH 29.6 27.0 - 32.0 pcg LAB HEMETOLOGY METHOD 08/25/2024 7:32 AM [facility] MCHC 31.7(L) 32.0 - 37.0 g/dL LAB HEMETOLOGY METHOD 08/25/2024 7:32 AM [facility] RDW 13.2 11.0 - 15.0 % LAB HEMETOLOGY METHOD 08/25/2024 7:32 AM [facility] Platelets 409(H) 130 - 400 K/mcL LAB HEMETOLOGY METHOD 08/25/2024 7:32 AM [facility] MPV 10.4 7.0 - 11.0 FL LAB HEMETOLOGY METHOD 08/25/2024 7:32 AM [facility] NRBC 0.0 <1.0 % LAB HEMETOLOGY METHOD 08/25/2024 7:32 AM [facility] NRBC Absolute 0.00 <0.10 K/mcL LAB HEMETOLOGY METHOD 08/25/2024 7:32 AM [facility] Neutrophils Relative 83.9 % LAB HEMETOLOGY METHOD 08/25/2024 7:32 AM [facility] Lymphocytes Relative 14.2 % LAB HEMETOLOGY METHOD 08/25/2024 7:32 AM [facility] Monocytes Relative 1.3 % LAB HEMETOLOGY METHOD 08/25/2024 7:32 AM [facility] Eosinophils Relative 0.0 % LAB HEMETOLOGY METHOD 08/25/2024 7:32 AM [facility] Basophils Relative 0.1 % LAB HEMETOLOGY METHOD 08/25/2024 7:32 AM [facility] Immature Granulocytes Relative 0.5 % LAB HEMETOLOGY METHOD 08/25/2024 7:32 AM [facility] Neutrophils Absolute 7.91(H) 1.50 - 7.00 K/mcL LAB HEMETOLOGY METHOD 08/25/2024 7:32 AM EST [facility] Lymphocytes Absolute 1.34 1.00 - 5.00 K/mcL LAB HEMETOLOGY METHOD 08/25/2024 7:32 AM EST [facility] Monocytes Absolute 0.12(L) 0.20 - 1.00 K/[facility] LAB HEMETOLOGY METHOD 08/25/2024 7:32 AM EST [facility] Eosinophils Absolute 0.00 0.00 - 0.50 K/[facility] LAB HEMETOLOGY METHOD 08/25/2024 7:32 AM EST [facility] Basophils Absolute 0.01 0.00 - 0.20 K/[facility] LAB HEMETOLOGY METHOD 08/25/2024 7:32 AM [facility] Immature Granulocytes Absolute 0.05(H) 0.00 - 0.03 K/mcL LAB HEMETOLOGY METHOD 08/25/2024 7:32 AM [facility] Blood Venous blood specimen / Unknown Venipuncture / Unknown 08/25/2024 5:12 AM EST 08/25/2024 7:05 AM EST us Jemal Padilla MD LAB BLOOD ORDERABLES Final Result [facility] [address] [place] [address], * (ABNORMAL) Basic metabolic panel (08/25/2024 5:12 AM EST) Only the most recent of2 resultswithin the time period is included. Sodium 137 133 - 145 mmol/L LAB CHEMISTRY METHOD 08/25/2024 7:51 AM [facility] Potassium 4.6 3.5 - 5.5 mmol/L LAB CHEMISTRY METHOD 08/25/2024 7:51 AM [facility] Chloride 108 96 - 110 mmol/L LAB CHEMISTRY METHOD 08/25/2024 7:51 AM EST [facility] CO2 24 21 - 32 mmol/L LAB CHEMISTRY METHOD 08/25/2024 7:51 AM [facility] Anion Gap 5 3 - 11 LAB CHEMISTRY METHOD 08/25/2024 7:51 AM [facility] Glucose 288(H) 70 - 100 mg/dL LAB CHEMISTRY METHOD 08/25/2024 7:51 AM [facility] BUN 19 5 - 25 mg/dL LAB CHEMISTRY METHOD 08/25/2024 7:51 AM [facility] Creatinine 0.79 0.50 - 1.10 mg/dL LAB CHEMISTRY METHOD 08/25/2024 7:51 AM [facility] eGFR 81 >=60 mL/min/1. 73m2 LAB CHEMISTRY METHOD 08/25/2024 7:51 AM [facility] Comment:Calculation based on the??Chronic Kidney Disease Epidemiology Collaboration (CKD-EPI) equation refit??without adjustment for race. BUN/Creatinine Ratio 24.1 LAB CHEMISTRY METHOD 08/25/2024 7:51 AM [facility] Calcium 8.8 8.5 - 10.5 mg/dL LAB CHEMISTRY METHOD 08/25/2024 7:51 AM [facility] Blood Venous blood specimen / Unknown Venipuncture / Unknown 08/25/2024 5:12 AM EST 08/25/2024 7:07 AM EST us Jemal Padilla MD LAB BLOOD ORDERABLES Final Result [facility] [address] [place] [address], * Transfuse Plasma (08/25/2024 4:04 AM EST) Only the most recent of2 resultswithin the time period is included. us Jemal Padilla MD BLOOD TRANSFUSION ORDERABLE S Final Result * (ABNORMAL) CBC (08/24/2024 7:42 PM EST) WBC 10.5 4.8 - 10.8 K/mcL LAB HEMETOLOGY METHOD 08/24/2024 8:42 PM [facility] RBC 3.40(L) 3.80 - 4.80 M/mcL LAB HEMETOLOGY METHOD 08/24/2024 8:42 PM [facility] Hemoglobin 10.3(L) 11.5 - 16.0 g/dL LAB HEMETOLOGY METHOD 08/24/2024 8:42 PM [facility] Hematocrit 32.1(L) 35.0 - 47.0 % LAB HEMETOLOGY METHOD 08/24/2024 8:42 PM [facility] MCV 94.4 79.0 - 98.0 FL LAB HEMETOLOGY METHOD 08/24/2024 8:42 PM [facility] MCH 30.3 27.0 - 32.0 pcg LAB HEMETOLOGY METHOD 08/24/2024 8:42 PM [facility] MCHC 32.1 32.0 - 37.0 g/dL LAB HEMETOLOGY METHOD 08/24/2024 8:42 PM [facility] RDW 13.2 11.0 - 15.0 % LAB HEMETOLOGY METHOD 08/24/2024 8:42 PM [facility] Platelets 434(H) 130 - 400 K/[facility] LAB HEMETOLOGY METHOD 08/24/2024 8:42 PM [facility] MPV 10.3 7.0 - 11.0 FL LAB HEMETOLOGY METHOD 08/24/2024 8:42 PM [facility] NRBC 0.0 <1.0 % LAB HEMETOLOGY METHOD 08/24/2024 8:42 PM [facility] NRBC Absolute 0.00 <0.10 K/[facility] LAB HEMETOLOGY METHOD 08/24/2024 8:42 PM [facility] Blood Venous blood specimen / Unknown Venipuncture / Unknown 08/24/2024 7:42 PM EST 08/24/2024 8:34 PM EST Oscar BLOOM LAB BLOOD ORDERABLES Final R esult [facility] [address] [place] [address], [place] [phone] * Green LI heparin tube (08/24/2024 7:41 PM EST) Pathologist [facility] Extra Tube Hold for add-ons. 08/24/2024 10:01 PM EST [facility] Comment:Auto resulted. Blood Venous blood specimen / Unknown 08/24/2024 7:41 PM EST 08/24/2024 8:33 PM EST Mariaelena aY DO LAB BLOOD ORDERABLES Kiki l Result Performing Organization Address [facility]/ZIP Co de Phone Number [facility] [address] [place] [address], [place] [phone] * Type and screen (08/24/2024 7:41 PM EST) Pathologist [facility] ABO Group A 08/24/2024 9:19 PM EST [facility] Rh Type Positive 08/24/2024 9:19 PM EST [facility] Antibody Screen Negative 08/24/2024 9:19 PM EST [facility] Blood Venous blood specimen / Unknown Venipuncture / Unknown 08/24/2024 7:41 PM EST 08/24/2024 8:32 PM EST Oscar BLOOM LAB BLOOD BANK TEST ORDERABL ES Final Result Performing Organization Address City/[facility]/ZIP Co de Phone Number [facility] [address] [place] [address], [place] [phone] * Prepare Plasma: 2 Units (08/24/2024 7:37 PM EST) Product Code [id number] 08/24/2024 10:24 PM EST [facility] Unit Number [id number] 08/24/19 10:24 PM EST [facility] Dispense Status Transfused 08/24/2024 10:24 PM EST [facility] Unit ABO Rh APOS 08/24/2024 10:24 PM EST [facility] Unit Expiration Date Time 08/24/2024 10:24 PM EST [facility] Unit Blood Type 6200 08/24/2024 10:24 PM [facility] Product Code [id number] 08/25/2024 12:32 AM EST [facility] Unit Number [id number] 08/25/19 12:32 AM [facility] Dispense Status Transfused 08/25/2024 12:32 AM EST [facility] Unit ABO Rh APOS 08/25/2024 12:32 AM [facility] Unit Expiration Date Time [id number] 08/25/2024 12:32 AM [facility] Unit Blood Type 6200 08/25/2024 12:32 AM [facility] Blood Venous blood specimen / Unknown 08/24/2024 7:37 PM EST us Oscar LBOOM BLOOD BANK PRODUCT ORDERABLE S Final Result [facility] [address] [place] [address], from Last 3 Months Insurance [employer] Member Subscriber Plan / Payer (Ef fective 2020-Present) Name:Gayle Antoine Relation to Subscriber:Self Name:Gayle Antoine Payer ID:[id number] Group ID:[id number] Type:Not on file Address: [address] [facility] [place] [address] Advance Directives * Full Code - Default (Latest Code Status on File) Date Activated Date Inactivated Comments 08/24/2024 9:56 PM 08/25/2024 1:45 PM This is order is used when code status has not been discussed with the patient, or code status is otherwise unknown/unconfirmed To update the patient's code status, place a code status order. Do not modify or discontinue any currently active code status orders. Care Teams Web Design Intern Relationship Specialty Start Date End Date Presley Perez MD [address] [place] [address] [address] [facility] [place] [address] PCP - General 05/15/23
== END 2024-08-27 11:10 | disposition home or self-care (01) ==
PROVIDERS: PCP Internal Medicine; Referring Provider Internal Medicine; Visit Provider Surgery
DX: M79.89 Other specified soft tissue disorders (principal)
CPT/HCPCS: 99204

== ENCOUNTER → 2024-08-27 10:50 | Outpatient (BNVA) | payer OTHER, SELFPAY | PROVIDERS: PCP Internal Medicine; Referring Provider Internal Medicine; Visit Provider Surgery | DX: M79.89 Other specified soft tissue disorders (principal) | CPT/HCPCS: 99202 ==

== ENCOUNTER 2024-09-02 13:28 | Outpatient (AMB) | payer OTHER, SELFPAY ==
--- NOTE | 2024-09-02 13:37 | A.OFFPC_ITS ---
Vital Signs 09/02/24 13:38 Height 5 ft 2 in Weight 138 lb BMI 25.2 BP 138/62 Blood Pressure Location Lt brachial Position Sitting Pulse 81 Pulse Source Pulse Oximeter Pulse Oximetry (%) 97 Oxygen Delivery Method Room Air Intake Visit Reasons: annual exam Allergies amoxicillin Allergy (Intermediate, Verified 09/02/24 13:43) Rash egg Allergy (Mild, Verified 09/02/24 13:43) Nausea and Vomiting lisinopril Adverse Reaction (Severe, Verified 09/02/24 14:03) Angioedema doxycycline Adverse Reaction (Mild, Verified 09/02/24 13:43) Rash prednisone Adverse Reaction (Mild, Uncoded 09/02/24 13:43) Headaches Medication List - Last Reconciled 09/02/24 by Presley Barahona Po, atorvastatin 20 mg PO BEDTIME [Bath mat As directed] BD Wendy 2nd Gen Pen Needle (pen needle, diabetic) 5 times a day NS blood pressure monitor (Blood Pressure Kit) As directed blood sugar diagnostic (FreeStyle Lite Strips) As directed three times a day blood-glucose meter (FreeStyle Lite Meter kit) As directed cholecalciferol (vitamin D3) 50 mcg PO DAILY 90 days [DIABETIC SHOEs As directed] escitalopram oxalate (Lexapro) 20 mg PO DAILY 90 days famotidine 20 mg PO BID fenofibrate nanocrystallized 145 mg PO DAILY 90 days flash glucose sensor (FreeStyle Adi 14 Day Sensor kit) As directed gabapentin 300 mg PO BID 90 days insulin glargine (Lantus Solostar U-100 Insulin) 27 units (0.27 mL) subcut DAILY insulin lispro (Humalog KwikPen (U-100) Insulin) subcutaneously Inject 4 times a day according to sliding scale 2-10 units; or as directed less than 60 drink orange juice, 61-150 no coverage, 151-230 2 units, 231 to 280 4 units, 281-330 6 units, 331-380 8 units, > 380 10 units ketorolac 0.5% 0 drps ophthalmic (eye) lancets As directed metformin 1,000 mg PO BID 30 days mupirocin 2% 1 appl topical BID pen needle, diabetic (Unifine Pentips) USE FOUR TIMES A DAY DIRECTED (BULK) sitagliptin phosphate (Januvia) 100 mg PO DAILY 90 days sumatriptan succinate 50 mg PO .QD PRN Tobacco use date assessed: 08/07/24 Fall risk assessment: No Falls in past year Last assessed Fall Risk: 09/02/24 Dental Screening Dental Screen Date: 08/07/24 [facility] annual exam HPI Details The patient is a 69-year-old female presenting with concerns regarding a recent diagnosis of angioedema and pending surgery for a left ankle abscess. The angioedema episode, characterized by tongue swelling and shortness of breath, led to recent hospitalization and was treated with steroids. This is aggravated by her known medication allergies, including aspirin and prednisone, which previously raised her blood sugar levels. The patient's left ankle abscess had a prior follow-up with a surgeon and will require surgical intervention. Blood work revealed no anemia, mild thrombocytosis, and leukocytosis. For chronic conditions, specifically diabetes mellitus, the patient's last HbA1c reading in July was 7.3, with a goal of less than 7.0. Her diabetic regimen includes Lantus, Humalog, metformin, and Januvia. The patient's last LDL reading was 50, and she is managing hypercholesterolemia with fenofibrate and atorvastatin, targeting an LDL goal of less than 100. - Colonoscopy was last performed in 2019 . - Mammogram and bone density tests are u p to date. - Recent influenza vaccination received. - Pneumonia vaccination completed. - Tetanus vaccine discussed but deferred until the next visit. - Patient advised on the importance of m aintaining diabetes control with a target HbA1c of less than 7. - Advised on the goal of LDL cholesterol less than 100. - Denies alcohol consumption. - Stopped smoking. - Reports compliance with medications de spite insurance-related changes. - Has persistent issues with weight jenn gement. - Discussed the burden of frequent noctu rnal urination potentially due to poor glycemic control. - General: Reports weight gain. - Eyes: Scheduled for eye examination. - Cardiovascular: Denies chest heaviness . - Respiratory: Denies waking up short of breath. - Gastrointestinal: Reports heartburn co ntrolled with famotidine; occasional diarrhea. - Genitourinary: No reported changes. - Musculoskeletal: Reports leg pain. - Dermatological: Reports itchy rashes. - Neurological: Sometimes dizzy, no migr aines reported. - Psychological: Manages anxiety with me dication. - Labs: Recent HbA1c 7.3%, LDL 50 mg/dL. - Blood work: No anemia, mild thrombocyt osis, leukocytosis. [facility] Medical History Cough RUQ abdominal pain Plantar fasciitis, bilateral Osteoporosis Breast calcifications Breast cancer screening by mammogram Pancreatitis Breast calcification, left Tobacco abuse Type 2 diabetes mellitus with hyperglycemia, with long-term current use of insulin Hypertriglyceridemia half-way current use of insulin Hyperlipidemia LDL goal <100 Diabetic neuropathy Esophagitis Anemia Surgical History History of cataract surgery Hx of mammogram H/O esophagogastroduodenoscopy History of colonoscopy Hx of cholecystectomy Family History Father Diabetes Mother Diabetes Social History Household Members: None Housing: Apartment Alcohol intake: never Patient Tobacco Use Status: Former Tobacco user Tobacco use type: Cigarette Cigarettes Per Day: 5 Years Smoked: quit 2021 e-Cigarette/Vaping Use: Never Used Second Hand Smoke Exposure: No service: No Current occupational status: retired Current occupation: left handed Cognitive needs: No Hearing needs: No Vision needs: Yes Questionnaire PHQ-9 Over the last 2 weeks, how often have you been bothered by any of the following problems? 1. Little interest or pleasure in doing things: more than half the days 2. Feeling down, depressed, or hopeless: not at all 3. Trouble falling or staying asleep, or sleeping too much: more than half the days 4. Feeling tired or having little energy: more than half the days 5. Poor appetite or overeating: not at all 6. Feeling bad about yourself - or that you are a failure or have let yourself or your family down: not at all 7. Trouble concentrating on things, such as reading the newspaper or watching television: not at all 8. Moving or speaking so slowly that other people could have noticed. Or the opposite - being so fidgety or restless that you have been moving around a lot more than usual: not at all 9. Thoughts that you would be better off or of hurting yourself in some way: not at all Total score: 6 Source: Developed by Alka AlvarezW. Ross, Sonny Geiger and colleagues, with an educational mary from [employer]. Thrive Questionnaire Date Thrive assessed: 08/07/24 I am a: Patient What is your living situation today?: I have a steady place to live Within the past 12 months, did the food you bought not last and you didn't have the money to get more?: Never true Within the past 12 months, did you worry whether your food would run out before you got money to buy more?: Never true Do you have trouble paying for medicines?: Yes Do you have trouble getting transportation to medical appointments?: No Do you have trouble paying your heating and electricity bill?: No Do you have trouble taking care of your child, family member or friend?: No Do you have trouble with day-to-day activities such as bathing, preparing meals, shopping, managing finances, etc.?: No Are you currently unemployed and looking for a job?: No Are you interested in more education?: Yes Please select the resources that you would like help with: Education Currently or been in a relationship where the following occur: I choose not to answer THRIVE Score: 0 AUDIT C Alcohol Use Questionnaire (AUDIT-C) 1. How often do you have a drink containing alcohol?: Never Total Score: 0 WILLA-7 AMB Questionnaire WILLA-7 Date WILLA - 7 assessed: 08/07/24 Feeling nervous, anxious, or on edge: 2 = More than half the days Not being able to stop or control worryin = Not at all Worrying too much about different things: 0 = Not at all Trouble relaxin = Not at all Being so restless that it is hard to sit still: 0 = Not at all Becoming easily annoyed or irritable: 0 = Not at all Feeling afraid as if something awful might happen: 0 = Not at all Total WILLA-7 score (0-4 normal; 5-9 mild; 10-14 moderate; 15-21 severe): 2 Source: Developed by Drs. Keith Morrison, Sonny Campos and colleagues, with an educational mary from [employer]. Review of Systems Const Denies poor appetite and Denies weakness Eyes Denies no additional complaints ENT Reports Normal hearing present, Denies dizziness, Denies nasal congestion, Denies tinnitus and Denies sore throat Card Denies chest pain, Denies syncope, Denies rapid heart rate and Denies dyspnea Resp Denies cough and Denies dyspnea GI Denies change in stool character, Reports constipation, Denies diarrhea, Denies nausea and Denies vomiting Denies urinary frequency, Denies difficulty voiding and Denies dysuria Neuro Reports Normal hearing present, Denies confusion, Denies dizziness, Denies syncope and Denies weakness Psych Denies confusion Physical exam (Primary Care) Vital Signs: Last Vital Signs Pulse 81 09/02/24 13:38 BP 138/62 09/02/24 13:38 Pulse Ox 97 09/02/24 13:38 Oxygen Delivery Method Room Air 09/02/24 13:38 BMI result Body Mass Index 25.2 Tobacco/Smoking Status: Tobacco use Status Tobacco use date assessed 08/07/24 09/02/24 13:40 Patient Tobacco Use Status Former Tobacco user 09/02/24 13:40 Tobacco use type Cigarette 09/02/24 13:40 e-Cigarette/Vaping Use Never Used 09/02/24 13:40 PHQ-9: PHQ-9 Score PHQ-9: Total score 6 09/02/24 13:40 Thrive Assessment: Date of Thrive Assessment Date Thrive assessed 08/07/24 09/02/24 13:40 Currently or been in a relationship where the following occur: I choose not to answer Const General: No confusion Orientation/consciousness: No confusion HENMT Head: Yes normocephalic Ears: external ears normal and TM's normal bilaterally Face and sinus: Yes normal facial exam Mouth: moist mucous membranes Throat: Yes tonsils normal Eyes Conjunctivae: conjunctivae normal Pupils: Equal, round and reactive pupils present and Pupil accommodation reflex normal Direct Ophthalmoscopy: normal light reflex Neck Neck: No lymphadenopathy Thyroid: Thyroid normal Chest Chest palpation & inspection: normal inspection of the chest Resp Effort & Inspection: normal respiratory effort and no audible wheezes Auscultation: clear to auscultation bilaterally, no crackles, no wheezes and lung sounds not diminished Cardio Rate: regular rate Rhythm: regular rhythm Peripheral pulses: radial pulses present and dorsalis pedis present GI Other: declined rectal , but pedal pulse and pin prick good Palpation (GI): no masses Auscultation: normal bowel sounds and normoactive bowel sounds Rectal Exam - Female: deferred Skin General skin exam: no rashes or lesions noted Rashes: no rashes Neuro General: No confusion Cranial nerves: Yes Equal, round and reactive pupils present and Yes Normal hearing present Cognition (Neuro): normal cognition Gait exam (Neuro): Normal gait present Motor exam (neuro): 5/5 motor strength present throughout Deep tendon reflexes (DTR's): Right brachioradialis reflex intensity grade: 2+, Left brachioradialis reflex intensity grade: 2+, Right patellar reflex intensity grade: 2+ and Left patellar reflex intensity grade: 2+ Extrem General: No edema Coding Level of Care Code Est Pt Prev Care >65y(99320) Diagnoses Annual physical exam Z00.00 Type 2 diabetes mellitus with hyperglycemia, with long-term current use of insulin E11.65; Z79.4 Hyperlipidemia LDL goal <100 E78.5 Generalized anxiety disorder F41.1 Migraine G43.909 Mass of joint of left ankle M25.872 Hives L50.9 Allergic reaction T78.40XA Assessment & Plan Assessment & Plan (1) Annual physical exam: Code(s): Z00.00 - Encounter for general adult medical examination without abnormal findings Category: Medical Plan: Patient is advised to eat healthy, keep well hydrated, keep active and have adequate sleep. (2) Type 2 diabetes mellitus with hyperglycemia, with long-term current use of insulin: Comment: Rolf Blevins 08/2023 Code(s): E11.65 - Type 2 diabetes mellitus with hyperglycemia; Z79.4 - half-way (current) use of insulin Category: Medical Plan: Decrease the amount of carbohydrate intake, pasta, bread, rice and potatoes are all sugar and that is aside from all the sweet stuff, remember that fruits are good but they are Sweet also. Hemoglobin A1c goal of less than 7.0 patient is taking Lantus 27 units once a day Humalog sliding scale metformin a 1000 mg twice a day and Januvia 100 mg once a day (3) Hyperlipidemia LDL goal <100: Comment: Dr. Blevins Code(s): E78.5 - Hyperlipidemia, unspecified Category: Medical Plan: Avoid fried foods, chicken skin, eggs, butter margarine, pastries and meat. Be it pork or beef they have a lot of cholesterol LDL goal of less than 100 and triglyceride of less than 150 patient is taking fenofibrate and atorvastatin 20 mg once a day (4) Generalized anxiety disorder: Comment: decline counselling 01/2022 Code(s): F41.1 - Generalized anxiety disorder Category: Medical Plan: Continue with present therapy (5) Migraine: Code(s): G43.909 - Migraine, unspecified, not intractable, without status migrainosus Category: Medical Plan: Patient is advised to eat healthy, keep well hydrated, keep active and have adequate sleep. (6) Mass of joint of left ankle: Code(s): M25.872 - Other specified joint disorders, left ankle and foot Category: Medical Plan: Patient has a planned surgery (7) Hives: Code(s): L50.9 - Urticaria, unspecified Category: Medical (8) Allergic reaction: Code(s): T78.40XA - Allergy, unspecified, initial encounter Category: Medical Plan - Continue current diabetes management regimen with Lantus, Humalog, metformin, and Januvia. - Current cholesterol medications fenofibrate and atorvastatin) to be continued. - Schedule left ankle abscess surgery. - Discuss referral for allergy testing to determine further medication sensitivities. - Prescribe topical steroid cream for rash with guidance on one-week application to prevent skin thinning. - Recommend follow-up with huc and surgical team. During the visit, we discussed the management of angioedema incidents, highlighting the importance of avoiding known allergens. We also went through her diabetes management plan, emphasizing the need for more stringent glycemic control and the impact of prednisone on her blood glucose levels. For her planned ankle surgery, the patient was informed about the surgical process, including potential risks and benefits. Referral to an huc was agreed upon to investigate any additional allergies. The importance of maintaining current cholesterol and diabetes medication regimens was reinforced, given her existing health goals, and the use of steroid cream for a limited duration was explained to mitigate skin-related side effects. We scheduled necessary follow-ups to monitor her conditions. - Apply steroid cream twice daily on rashes for one week only. Do not apply near the eyes. - Continue all current medications as prescribed. - Ensure adequate diabetes control with the existing regimen. - Follow up with a primary care physician after operation for further evaluation. - Schedule and attend the [facility] referral promptly. - Avoid known allergens and alert health providers to medication allergies during consults. - Prepare for ankle surgery as advised by the surgical team. - Monitor blood glucose levels regularly and maintain within target ranges. Orders: Orders Complete Blood Count Auto Diff 3 Months E11.65 - Type 2 diabetes mellitus with hyperglycemia, Z79.4 - half-way (current) use of insulin Comprehensive Met. 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 Hemoglobin A1c 3 Months E11.65 - Type 2 diabetes mellitus with hyperglycemia, Z79.4 - half-way (current) use of insulin Vitamin B12 and Folate 3 Months E11.65 - Type 2 diabetes mellitus with hyperglycemia, Z79.4 - terminal make up operator (current) use of insulin Vitamin D 25-OH Total 3 Months E11.65 - Type 2 diabetes mellitus with hyperglycemia, Z79.4 - half-way (current) use of insulin Free T4 (Free Thyroxine) 3 Months E11.65 - Type 2 diabetes mellitus with hyperglycemia, Z79.4 - half-way (current) use of insulin Thyroid Stimulating Hormone 3 Months E11.65 - Type 2 diabetes mellitus with hyperglycemia, Z79.4 - half-way (current) use of insulin Lipid Panel 3 Months E11.65 - Type 2 diabetes mellitus with hyperglycemia, E78.00 - Pure hypercholesterolemia, unspecified, Z79.4 - terminal make up operator (current) use of insulin Referrals Allergy & Immunology Referral T78.40XA - Allergy, unspecified, initial encounter Medications: New triamcinolone acetonide 0.5% 1 appl topical BID 30 grams 0RF L50.9 - Urticaria, unspecified Refilled sitagliptin phosphate (Januvia) 100 mg PO DAILY 90 days 90 tabs 5RF
[2024-09-02 13:38] VITALS: BP 138/62; PULSE 81; O2SAT 97; BMI 25.2
== END 2024-09-02 14:33 | disposition home or self-care (01) ==
PROVIDERS: PCP Internal Medicine; Visit Provider Internal Medicine
DX: Z00.00 Encounter for general adult medical examination without abnormal findings (principal); E11.65 Type 2 diabetes mellitus with hyperglycemia; Z79.4 Long term (current) use of insulin; E78.5 Hyperlipidemia, unspecified; F41.1 Generalized anxiety disorder; G43.909 Migraine, unspecified, not intractable, without status migrainosus; M25.872 Other specified joint disorders, left ankle and foot; L50.9 Urticaria, unspecified; T78.40XA Allergy, unspecified, initial encounter

== ENCOUNTER → 2024-09-02 13:28 | Outpatient (BNVA) | payer OTHER, SELFPAY | PROVIDERS: PCP Internal Medicine; Visit Provider Internal Medicine | DX: Z00.00 Encounter for general adult medical examination without abnormal findings (principal); E11.65 Type 2 diabetes mellitus with hyperglycemia; E78.5 Hyperlipidemia, unspecified; F41.1 Generalized anxiety disorder; G43.909 Migraine, unspecified, not intractable, without status migrainosus; M25.872 Other specified joint disorders, left ankle and foot; L50.9 Urticaria, unspecified; T78.40XA Allergy, unspecified, initial encounter; Z79.4 Long term (current) use of insulin | CPT/HCPCS: 99397 ==

== ENCOUNTER 2024-09-03 10:34 | Outpatient (REF) | payer OTHER, SELFPAY ==
--- OUTSIDE RECORDS SUMMARY | 2024-09-03 11:35 | XMS_ITS | Data Portability ---
Author Organization [employer] [email or web address] Address [address] [place] [address] Care Team Providers Care E Learning Coordinator Name Role Phone HIM CCA OTHER Assessment Encounter Date Assessment Date Assessment LastModified by Organization Details LastModified Time 11/13/2021 11/13/2021 I have reviewed and agree with the Assessment and Plan as documented by the Continuity Person. I provided real -time medical direction via phone for this encounter, and was available for additional phone based assistance as needed. Patient given the opportunity to ask questions. [email or web address] Not available 11/13/2021 18:55:00 04/30/2024 04/30/2024 I provided real -time medical direction via phone for this encounter and was available for additional phone-based assistance as needed. I have reviewed and agree with the Assessment and Plan as documented by the Continuity Person. Patient given the opportunity to ask questions. [...] taking Tylenol with fairly good success. Per manager shipping on the scene, vital signs are stable and the patient is afebrile currently at 99. The patient is in no distress per manager shipping on the scene as well as nontoxic. [...] with antibiotics. She can also continue with [id number] medications for cough. She should continue Tylenol [...] Time Details Appointments None recorded. Lab rapid SARS CoV 2 Ag, QL IA, respiratory specimen 2023 024 [facility], [address] [place] [address], [phone], 4 18:23:08 rapid flu (A+B) 2023 024 [facility], [address] [place] [address], [phone], 4 18:22:39 rapid flu (A+B) 2021 022 [email or web address] 0 [facility], [address] [place] [address], [phone], 2 19:21:25 rapid strep group A, throat 2021 022 [email or web address] 0 [facility], [address] [place] [address], [phone], 2 19:21:25 rapid SARS CoV 2 Ag, QL IA, respiratory specimen 2021 022 [email or web address] 0 [facility], [address] [place] [address], [phone], 2 19:21:25 glucose, fingerstick , blood 2021 022 [email or web address] 0 [facility], [address] [place] [address], [address], 11:29:59 Referral None recorded. Procedures None recorded. Surgeries None recorded. Imaging None recorded. Medication Orders Augmentin 875 mg-125 mg tablet 2023 024 [id number], [address] [place], [address], 4 15:06:23 Probiotic 10 billion cell capsule 2023 024 [id number], [address] [place], [address], 4 15:06:24 Augmentin 875 mg-125 mg tablet 2023 024 [email or web address], [address] [place], [address], 4 15:09:24 Zithromax Z-Patrice 250 mg tablet 2023 024 [facility], [address] [place], [address], 4 11:44:50 Mucinex 600 mg tablet, extended release 2023 024 [facility], [address] [place], [address], 4 15:46:41 Zithromax Z-Patrice 250 mg tablet 2023 024 [facility], [address] [place], [address], 4 15:46:41 benzonatate 100 mg capsule 2021 022 [facility], [address] [place], [address], 2 19:21:27 Patient TargetsNo targets recorded. Patient InstructionsNo instructions recorded. Reason for Referral None Reported. Results Created Date Observation Date Name Description Value Unit Range Abnormal Flag Note LastModifiedBy Organization Detail LastModifiedTime 11/14/19 22 11/13/2021 rapid SARS CoV 2 Ag, QL IA, respi rator y speci men rapid SARS CoV 2 Ag, QL IA, respiratory specimen negati ve Not Available [facility] [address] [place] [address], [phone], 11/13/2021 19:21:11 11/14/19 22 11/13/2021 rapid strep group A, throa t Strep negati ve Not Available [facility] ed [address] [place] [address], [address], 11/13/2021 19:18:20 11/14/19 22 11/13/2021 rapid flu (A+B) Flu negati ve Not Available [facility] ed [address] [place] [address], [address], 11/13/2021 18:57:23 11/15/19 22 11/14/2021 gluco se, finge rstic k, blood Blood Glucose: mg/dl 175 Not Available [facility] [address] [place] [address], [address], 11/14/2021 11:28:33 04/30/20 24 04/30/2024 rapid SARS CoV 2 Ag, QL IA, respi rator y speci men rapid SARS CoV 2 Ag, QL IA, respiratory specimen negati ve Not Available [facility] ed [address] [place] [address], [phone], 04/30/2024 15:04:36 04/30/20 24 04/30/2024 rapid flu (A+B) Flu negati ve Not Available [facility] ed [address] [place] [address], [phone], 04/30/2024 15:04:38 Result Notes None recorded. Medical Equipment None Reported. Allergies Allergen ID Allergen Name Allergen Category Reaction Reaction Severity Criticality Documentation Date Start Date Code Code System Note Provider Name and Address Organization Details Recorded Time 428 honey bee venom medicatio n Not available Not available Not available 11/13/2021 47399 7 RxNorm Pearl Rubio MD [address], [place], [address], [facility] - [facility] 2 18:55:12 8551 egg extract food,medi cation Not available Not available Not available 05/14/2024 58772 15 RxNorm Not Available [facility] - production [...] /min 97 % 97 % 157.48 cm 38013.4 72 g 98.9 [degF] 16 /min 93 /min 125 mm[Hg] 49 mm[Hg] Not Available [employer] 4 15:34:06 Date Recorded Body height Oxygen saturation Oxygen saturation in Arterial blood by Pulse oximetry Body weight Respiratory rate Body temperature Heart rate Systolic blood pressure Diastolic blood pressure Provider Name and Address Organization Details Last Updated DateTime 4 157.48 cm 96 % 96 % 27500.2 88 g 18 /min 99 [degF] 81 /min 110 mm[Hg] 68 mm[Hg] Not Available [facility] [employer] production 4 11:33:55 Date Recorded Body temperature Respiratory rate Oxygen saturation Oxygen saturation in Arterial blood by Pulse oximetry Body height Heart rate Body weight Systolic blood pressure Diastolic blood pressure Provider Name and Address Organization Details Last Updated DateTime 4 99.1 [degF] 16 /min 95 % 95 % 157.48 cm 79 /min 06550.2 88 g 107 mm[Hg] 57 mm[Hg] Not Available [employer] [facility] [employer] 4 15:02:18 Date Recorded Body [...] % 95 % 157.48 cm 80 /min 83396.6 56 g 128 mm[Hg] 75 mm[Hg] 128 mm[Hg] 75 mm[Hg] Not Available [employer] [employer] 2 20:02:40 Date Recorded Body weight Provider Name an d Address Organization Details Last Updated DateTime 11/13/2021 99837.71 g Emily Perez [address] [place] [address],[address], [place], [address], [facility] [employer] [facility] 11/13/2021 19:33:12 Social History None recorded. Functional Status None recorded. Mental Status None recorded. Family History Nothing Reported. Medical History No medical history recorded. Gynecological HistoryNo gynecological history recorded. Obstetrics History GPAL:G 0 P 0 0 0 0 Past Encounters Encounter ID Performer Location Encounter Start Date Encounter Closed Date Diagnosis/Indication Diagnosis SNOMED-CT Code Diagnosis ICD10 Code Diagnosis Note [id number] Pearl [facility] [address] [place] [phone] 11/13/2021 18:52:03 03/24/2022 18:10:46 Viral syndrome 327907926 B34.9 vs reaction to Pfizer vaccine- advised [...] Type 2 marin mir mellitus without complication 532928106 E11.9 [id number] Leobardo Huff MD [facility] [address] [place] [phone] 08/14/2023 15:33:53 08/15/2023 10:57:22 Acute sinusitis 95004228 J01.10 This 68-year-ol d female presented with [...] plan. Leobardo Huff MD [facility] [address] [place] [phone] 09/12/2023 11:33:53 09/13/2023 17:20:45 Acute sinusitis 96115140 J01.10 This 68-year-ol d female has had typical URI symptoms for several days, and now she has a purulent nasal discharge and pressure on the left side of her face. Her COVID-19 and flu screens were negative. I ordered a Z-Patrice and Mucinex. She will follow-up with her PCP. The patient agreed with this plan. [id number] Lavern Arriaga MD [facility] [address] [place] [phone] 04/30/2024 15:02:11 04/30/2024 18:43:13 Upper respiratory infection 82006663 J06.9 Health Concerns Section Related Observation LastModified by Organization Detai ls LastModified Time None Recorded Concern Status LastModified by Organization Details LastModified Time None Recorded Advance Directives Directive None Recorded Payers Encounter Date Sequence Insurance Name Policy Number Policy Barnes Covered Member ID Barnes Member ID Guarantor Name 11/13/[address] [facility] - DOS PRIOR TO 2022 - DUAL ELIGIBLE (MEDICARE REPLACEMENT/ADV ANTAGE - HMO) Gayle Antoine [id number] Gayle Antoine 08/14/[address] [facility] - DOS ON OR AFTER 2022 - DUAL ELIGIBLE - CORRECTION OPTIONS AND ONE CARE (MEDICARE REPLACEMENT/ADV ANTAGE - HMO) Gayle Antoine [id number] Gayle Antoine 09/12/[address] [facility] - DOS ON OR AFTER 2022 - DUAL ELIGIBLE - CORRECTION OPTIONS AND ONE CARE (MEDICARE REPLACEMENT/ADV ANTAGE - HMO) Gayle Antoine [id number] Gayle Antoine 04/30/[address] [facility] - DOS ON OR AFTER 2022 - DUAL ELIGIBLE - CORRECTION OPTIONS AND ONE CARE (MEDICARE REPLACEMENT/ADV ANTAGE - HMO) Gayle Antoine [id number] Gayle Antoine Notes Date Note Type Note Provider Name and Address Organization Details Recorded Time 11/13/2021 text/html [facility] Nursing Assessment: Reason For Request: Cold Symptoms Chief Complaints: Cough, Fever/Chills, Nausea/Vomiting, Syncope/Dizziness/Li ghtheadedness Allergies: Unknown Comments: Member calling in to request an [facility] visit. Member is 11 days s/p [...] .................... .................... .................... .................... .................... .................... .... Continuity Person Note: Sent to a call for a [...] of proper Tylenol dosing. Vitals uploaded to [employer]. Lung sounds: clear bilaterally. No drooling or stridor noted. Rapid strep, influenza and COVID test negative. [facility] sends script to pt's pharmacy for medication to help with cough. Pt advised to use Throat Coat, tea with lemon and a little honey, gargle with warm salt water and follow up with PCP on Monday. Red flags discussed. Pt has no further questions. .................... .................... .................... .................... .................... .................... .................... . Disposition: Fulfilled Pearl Rubio MD [address] [facility],[address], [place], [address], [employer] 11/14/2021 11:30:08 08/14/2023 text/html [facility] Nurse Triage [...] .................... .................... .................... .................... .................... .................... . Continuity Person Note From Greg Denny: Pt reports 3 [...] L IV and azithromycin [address] [facility] to send mucinex and azithromycin to pharmacy. Pt instructed to f/u with PCP tomorrow and to seek emergent medical care for new or worsening sx, which are reviewed with her. .................... .................... .................... .................... .................... .................... .................... . Disposition: Fulfilled Leobardo Huff MD [address] [facility],[address], [place], [address], [employer] 08/14/2023 15:47:00 09/12/2023 text/html [facility] Nurse Triage [...] but gave herself insulin Leobardo Huff MD [address] [place] [address],[address], [place], [address], [employer] 09/12/2023 11:45:05 04/30/2024 text/html [facility] Nurse Triage Notes (Marjorie Recinos): Reason For Request: URI Chief Complaints: Pain, Chest Pain, Cough PMH: Diabetes, Hypertension Allergies: Egg Comments: Management Associate verified the member's name//address and phone number. [...] s/s and seek emergency treatment if needed Continuity Person Organization Information for Greg Denny [employer] Legal Name: [facility] Address: [address] [place] [address], [place] [address], Marketing Engineer: Guanaco Sanchez MD CLIA No.: [id number] Continuity Person POC Test Results from Greg Denny - ALS Rapid COVID antigen (14:39:48) COVID: - Rapid influenza antigen (14:39:49) Flu: - .................... .................... .................... .................... .................... .................... .................... . Continuity Person Note From Eduin Greg: Pt reports three [...] . Disposition: Fulfilled Lavern Arriaga MD [address] [facility],[address], [place], [address], [employer] [facility] 04/30/2024 15:10:17 OBGyn Episode No OBEpisode recorded.
--- OUTSIDE RECORDS SUMMARY | 2024-09-03 11:35 | XMS_ITS | Encounter Summary ---
Author Organization [employer] Address [address] [place] [address] Care Team Providers Care Claim Clinician Name Role Phone Presley Perez MD Primary Care Provider [phone] Reason for Visit * Reason Comments Oral Swelling * Auth/Cert (Routine) Specialty Diagnoses / Procedures Referred By Isai cazares Referred To Contact Diagnoses Angioedema Procedures . Jemal Padilla MD [address] [place] [id number] Phone: tel: fax: [facility] Emergency [address] [place] [phone] Phone: tel: Referral ID Status Reason Start Date Expiration Date Visits Re quested Visits Authorized [id number] 1 1 Encounter Details Date Type Department Care Team (Late st Contact Info) Description 08/24/2024 7:04 PM EST - 08/25/2024 11:39 AM EST Emergency [facility] Emergency [address] [place] [phone] Mariaelena Ya DO [address] [place] [id number] Jemal Padilla MD [address] [place] [id number] Abdi Raymundo MD [address] [place] [phone] Angioedema, initial encounter (Primary Dx) Discharge Disposition: [...] Tejeda RN documented in this encounter Discharge Summaries * MERLE Lawrence - 08/25/2024 11:39 AM EST Date of admission 08/24/2024 Date of discharge 08/25/2024 Disposition: Home with family Discharge Final Diagnosis: Angioedema due to lisinorpril Hospital Course : From HPI: 69-year-old female with PMH of hypertension, hyperlipidemia, DM2, peripheral neuropathy and depression presents to the ED for tongue swelling Patient states she developed right sided tongue numbness and swelling around 4:30 PM that worsened throughout the day She became concerned when the swelling worsened, she was unable to tolerate drinking water, and felt short of breath while lying down She denies any similar symptoms in the past. Reports taking lisinopril intermittently, stating this medication was prescribed for her kidneys and not for hypertension Denies any history of COPD, asthma, BETSEY. She does have a 40+ pack year history and currently smoking 1 pack of cigarettes per week Does not follow with pulmonology outpatient, has never had a low-dose CT scan to assess for lung cancer Patient also reports hives that appear every other day over the last 3 months She was diagnosed with pneumonia and prescribed amoxicillin in April 2020 for which she believes may have been the cause??? Denies any fever, chills, chest pain, lightheaded, dizziness, headache. Vitals: 134/69, pulse 74, respiratory rate 16, 97% on room air, afebrile Labs: WBC 10.5, hemoglobin 10.3, hematocrit 32.1, glucose 129, creatinine 0.7 In the ED patient received Benadryl IV x 1, famotidine 20 mg IV x 1, IV Solu- Medrol 125 IV x 1 1. Angioedema: Patient reported previously being noncompliant with her lisinopril and more recentlytaking it somewhat regularly. Reports yesterday morning she took her lisinopril around 9 AM and noticed tongue swelling around 4 PM with subsequent difficulty swallowing and some shortness of breath prompting her to come to the ED. Suspicion for angioedema in the setting of lisinopril use. In the ED she received Benadryl, Pepcid, IV Solu-Medrol. She was then kept n.p.o. IV fluid and monitored overnight. On 08/25 she clinically appears stable. She is tolerating solid diet without difficulty swallowing or any shortness of breath today. We discussed suspicion that her tongue swelling was due to lis inopril and advised her to discontinue medication. It was added as an allergy. Recommend to continue Pepcid 20 mg p.o. twice daily for another 2 weeks then can reduce to chronic Pepcid 20 mg bedtime.Follow up with PCP within 1-2 weeks of discharge. 2. Urticaria: Reports intermittent hives. None currently noted. Follow-up with reel film inspector outpatient. Provided EpiPen (1) as needed in case of anaphylaxis. 3. Diabetes: Continue metformin, Lantus, ISS, diabetic diet and POC monitoring ACHS. 4. Hypertension: DC lisinopril due to angioedema as above. SBP mostly 110s to 120s at our facility.2 isolated BPs noted to be 150 systolically. Follow-up with PCP for further monitoring and consideration of new medication initiation outpatient. 5. Hyperlipidemia: Continue statin 6. Peripheral neuropathy: Continue gabapentin 7. Depression: Continue escitalopram Test Results Pending At Discharge: Pending Labs Order Current Status Tryptase In process Outpatient Follow-Up Care: No future appointments. Discharge Medication List: Your medication list START taking these medications Instructions Last Dose Given Next Dose Due EPINEPHrine 0.3 mg/0.3 mL injection Commonly known as: EPIPEN Inject 0.3 mL (0.3 mg total) into the thigh if needed for anaphylaxis. Call 911 after use. CHANGE how you take these medications Instructions Last Dose Given Next Dose Due famotidine 20 mg tablet Commonly known as: PEPCID Start taking on: August 25, 2024 What changed: See the new instructions. Take 1 tablet (20 mg total) by mouth 2 (two) times a day for 14 days, THEN 1 tablet (20 mg total) at bedtime. CONTINUE taking these medications Instructions Last Dose Given Next Dose Due atorvastatin 20 mg tablet Commonly known as: LIPITOR Take 1 tablet (20 mg total) by mouth at bedtime. cholecalciferol 50 mcg (2,000 unit) capsule Commonly known as: VITAMIN D-3 Take 1 capsule (2,000 Units total) by mouth 1 (one) time each day. escitalopram 20 mg tablet Commonly known as: LEXAPRO Take 1 tablet (20 mg total) by mouth 1 (one) time each day. gabapentin 300 mg capsule Commonly known as: NEURONTIN Take 1 capsule (300 mg total) by mouth 2 (two) times a day. Lantus Solostar U-100 Insulin 100 unit/mL (3 mL) injection pen Generic drug: insulin glargine Inject 24 Units under the skin at bedtime. metFORMIN 1,000 mg tablet Commonly known as: GLUCOPHAGE Take 1 tablet (1,000 mg total) by mouth 2 (two) times a day with meals. NovoLOG Flexpen U-100 Insulin 100 unit/mL (3 mL) injection pen Generic drug: insulin aspart Inject 0-10 Units under the skin 3 (three) times a day before meals. STOP taking these medications lisinopriL 5 mg tablet Commonly known as: LUTHER SOUSA Where to Get Your Medications These medications were sent to [id number] - [address] AT [address] & [address] [id number] EPINEPHrine 0.3 mg/0.3 mL injection famotidine 20 mg tablet Patient Condition and Disposition at Time of Discharge: Patient was seen and examined this morning at bedside Denies any difficulty swallowing this morning No shortness of breath, chest pain, abdominal pain or nausea Reports she was not really compliant with her lisinopril before but more recently started taking itmore regularly. Reports last dose was yesterday morning at 9 AM and around 4 PM developed tongue swelling. Later noticed some difficulty swallowing and shortness of breath when she was lying down prompting her to come to the ED. Vitals: 08/25/24 0835 BP: (!) 150/65 Pulse: 84 Resp: 11 Temp: SpO2: 99% PHYSICAL EXAMINATION: General Exam: Age-appropriate female, awake, calm, cooperative, lying in the ED stretcher in no acute distress. Skin Exam: Warm, dry and intact without diaphoresis. HEENT exam: Head appears atraumatic. No scleral icterus. No tongue swelling noted. Handling oral secretions. Posterior pharynx visible w/o erythema or edema. Respiratory Exam: Clear to auscultation bilaterally. Cardiovascular Exam: Regular rate and rhythm. Gastrointestinal Exam: Abdomen is soft, nontender, and nondistended. BS appreciated. Musculoskeletal Exam: No lower extremity edema is appreciated. Neurological Exam: Alert and oriented x 3. Lab Results Component Value Date WBC 9.4 08/25/2024 HGB 10.5 (L) 08/25/2024 HCT 33.1 (L) 08/25/2024 MCV 93.2 08/25/2024 PLT 409 (H) 08/25/2024 Lab Results Component Value Date GLUCOSE 306 (H) 08/25/2024 CALCIUM 8.8 08/25/2024 NA 137 08/25/2024 K 4.6 08/25/2024 CO2 24 08/25/2024 CL 108 08/25/2024 BUN 19 08/25/2024 CREATININE 0.79 08/25/2024 Total time spent performing chart review, assessing the patient, documenting, discussing with attending MD/bedside RN/ICC, updating family, arranging care and performing a high level of medical decision making approximately 45 minutes. Case discussed with Dr. Raymundo Cosigned by Abdi Raymundo MD at 09/01/2024 2:34 PM EST Associated attestation - Abdi Raymundo MD - 09/01/2024 2:34 PM EST This is a split/shared visit with MERLE Lawrence. I personally performed the medical decision making (MDM) for the care of this patient as documentedbelow Patient was discussed with advanced practitioner . I personally saw and examined the patient bedside. Chart was reviewed by me personally including relevant history, updates, labs, imaging. Agree with the documentation and plan per LORIE except mentioned below. 69 years old female presented to the hospital with tongue swelling dysphagia and some shortness of breath. -Patient was treated with Benadryl Solu-Medrol famotidine. -Most like related to lisinopril. Denies any family history of angioedema. Denies any new medication or diet changes. -Symptoms significantly improved during hospital course and okay for discharge on Pepcid and outpatient follow-up with PCP. Abdi Raymundo MD 09/01/24 2:34 PM EST documented in this encounter Discharge Instructions * [...] Relationship) for DC Planning Edwardo Phoenix daughter [phone] Living Arrangements Alone Type of Residence Private [...] reviewed. Pt is not a . Uses [employer] [address] Pt has homemaker 1x week for [...] and has not been referred to an reel film inspector. Currently, she denies shortness of breath fever difficulty swallowing, she was just complaining of the tongue swelling. ROS: I have performed a ROS with the pertinent positives and negatives documented in the history ofpresent illness. Previous History Past Medical History: Diagnosis Date DM (diabetes mellitus) (CMS/[facility]) HTN (hypertension) History reviewed. No pertinent surgical history. Social History Tobacco Use Smoking status: Former Current packs/day: 0.00 Types: Cigarettes Quit date: 11/22/2022 Years since quittin.7 Smokeless tobacco: Never Substance Use Topics Drug use: Never No family history on file. is allergic to amoxicillin and glur-umcxom-lhbw [nutritional supplement-fiber]. No current facility-administered medications on [...] hospitalizedovernight for observation. Clinical Impressions as of 08/24/242303 Angioedema, initial encounter Procedures Procedures Diagnosis No [...] documented in this encounter Plan of Treatment Not on file documented as of this encounter Procedures Procedure [...] BLOOD Routine 08/24/2024 10 :11 PM EST TRYPTASE Routine 08/24/2024 10:00 PM EST COMPLETE BLOOD COUNT STAT 08/24/2024 [...] POCT Glucose, blood (08/25/2024 10:45 AM EST) [facility] Signature Glucose POCT 306(H) 70 - 100 mg/dL 08/25/2024 10:46 AM EST [facility] Blood Capillary blood specimen / Unknown 08/25/2024 10:45 AM EST 08/25/2024 10:47 AM EST Abdi Raymundo MD LAB POINT O F CARE TEST DOCKED DEVICE UNSOLICITED RESULTS Final Result Performing Organization Address City/[facility]/ZIP Co de Phone Number [facility] [address] [place] [address], [place] [phone] * (ABNORMAL) POCT Glucose, blood (08/25/2024 7:52 AM EST) [facility] Glucose POCT 265(H) 70 - 100 mg/dL 08/25/2024 7:[address] [facility] Blood Capillary blood specimen / Unknown 08/25/2024 7:52 AM EST 08/25/2024 7:54 AM EST Abdi Raymundo MD LAB POINT O F CARE TEST DOCKED DEVICE UNSOLICITED RESULTS Final Result Performing Organization Address [facility]/ZIP Co de Phone Number [facility] [address] [place] [address], [place] [phone] * (ABNORMAL) CBC auto differential (08/25/2024 5:12 AM EST) [facility] WBC 9.4 4.8 - 10.8 K/mcL LAB HEMETOLOGY METHOD 08/25/2024 7:[address] [facility] RBC 3.60(L) 3.80 - 4.80 M/mcL LAB HEMETOLOGY METHOD 08/25/2024 7:[address] [facility] Hemoglobin 10.5(L) 11.5 - 16.0 g/dL LAB HEMETOLOGY METHOD 08/25/2024 7:[address] [facility] Hematocrit 33.1(L) 35.0 - 47.0 % LAB HEMETOLOGY METHOD 08/25/2024 7:[address] [facility] MCV 93.2 79.0 - 98.0 FL LAB HEMETOLOGY METHOD 08/25/2024 7:[address] [facility] MCH 29.6 27.0 - 32.0 pcg LAB HEMETOLOGY METHOD 08/25/2024 7:[address] [facility] MCHC 31.7(L) 32.0 - 37.0 g/dL LAB HEMETOLOGY METHOD 08/25/2024 7:[address] [facility] RDW 13.2 11.0 - 15.0 % LAB HEMETOLOGY METHOD 08/25/2024 7:[address] [facility] Platelets 409(H) 130 - 400 K/mcL LAB HEMETOLOGY METHOD 08/25/2024 7:[address] [facility] MPV 10.4 7.0 - 11.0 FL LAB HEMETOLOGY METHOD 08/25/2024 7:[address] [facility] NRBC 0.0 <1.0 % LAB HEMETOLOGY METHOD 08/25/2024 7:[address] [facility] NRBC Absolute 0.00 <0.10 K/mcL LAB HEMETOLOGY METHOD 08/25/2024 7:[address] [facility] Neutrophils Relative 83.9 % LAB HEMETOLOGY METHOD 08/25/2024 7:[address] [facility] Lymphocytes Relative 14.2 % LAB HEMETOLOGY METHOD 08/25/2024 7:[address] [facility] Monocytes Relative 1.3 % LAB HEMETOLOGY METHOD 08/25/2024 7:[address] [facility] Eosinophils Relative 0.0 % LAB HEMETOLOGY METHOD 08/25/2024 7:[address] [facility] Basophils Relative 0.1 % LAB HEMETOLOGY METHOD 08/25/2024 7:[address] [facility] Immature Granulocytes Relative 0.5 % LAB HEMETOLOGY METHOD 08/25/2024 7:[address] [facility] Neutrophils Absolute 7.91(H) 1.50 - 7.00 K/mcL LAB HEMETOLOGY METHOD 08/25/2024 7:32 AM EST [facility] Lymphocytes Absolute 1.34 1.00 - 5.00 K/mcL LAB HEMETOLOGY METHOD 08/25/2024 7:[address] [facility] Monocytes Absolute 0.12(L) 0.20 - 1.00 K/mcL LAB HEMETOLOGY METHOD 08/25/2024 7:32 AM EST [facility] Eosinophils Absolute 0.00 0.00 - 0.50 K/[facility] HEMETOLOGY METHOD 08/25/2024 7:[address] [facility] Basophils Absolute 0.01 0.00 - 0.20 K/[facility] HEMETOLOGY METHOD 08/25/2024 7:[address] [facility] Immature Granulocytes Absolute 0.05(H) 0.00 - 0.03 K/[facility] LAB HEMETOLOGY METHOD 08/25/2024 7:[address] [facility] Blood Venous blood specimen / Unknown Venipuncture / Unknown 08/25/2024 5:12 AM EST 08/25/2024 7:05 AM EST us Jemal Padilla MD LAB BLOOD ORDERABLES Final Result [facility] [address] [place] [address], * (ABNORMAL) Basic metabolic panel (08/25/2024 5:12 AM EST) Sodium 137 133 - 145 mmol/L LAB CHEMISTRY METHOD 08/25/2024 7:[address] [facility] Potassium 4.6 3.5 - 5.5 mmol/L LAB CHEMISTRY METHOD 08/25/2024 7:[address] [facility] Chloride 108 96 - 110 mmol/L LAB CHEMISTRY METHOD 08/25/2024 7:[address] [facility] CO2 24 21 - 32 mmol/L LAB CHEMISTRY METHOD 08/25/2024 7:[address] [facility] Anion Gap 5 3 - 11 LAB CHEMISTRY METHOD 08/25/2024 7:[address] [facility] Glucose 288(H) 70 - 100 mg/dL LAB CHEMISTRY METHOD 08/25/2024 7:[address] [facility] BUN 19 5 - 25 mg/dL LAB CHEMISTRY METHOD 08/25/2024 7:[address] [facility] Creatinine 0.79 0.50 - 1.10 mg/dL LAB CHEMISTRY METHOD 08/25/2024 7:[address] [facility] eGFR 81 >=60 mL/min/1. 73m2 LAB CHEMISTRY METHOD 08/25/2024 7:[address] [facility] Comment:Calculation based on the??Chronic Kidney Disease Epidemiology Collaboration (CKD-EPI) equation refit??without adjustment for race. BUN/Creatinine Ratio 24.1 LAB CHEMISTRY METHOD 08/25/2024 7:[address] [facility] Calcium 8.8 8.5 - 10.5 mg/dL LAB CHEMISTRY METHOD 08/25/2024 7:[address] [facility] Blood Venous blood specimen / Unknown Venipuncture / Unknown 08/25/2024 5:12 AM EST 08/25/2024 7:07 AM EST us Jemal Padilla MD LAB BLOOD ORDERABLES Final Result [facility] [address] [place] [address], * Transfuse Plasma (08/25/2024 4:04 AM EST) us Jemal Padilla MD BLOOD TRANSFUSION ORDERABLE S Final Result * Transfuse Plasma: 2 Units (08/25/2024 4:04 AM EST) Jemal Padilla MD BLOOD TRANSFUSION ORDERABLE S Final Result * Transfuse Plasma (08/25/2024 12:26 AM EST) Jemal Padilla MD BLOOD TRANSFUSION ORDERABLE S Final Result * (ABNORMAL) POCT Glucose, blood (08/24/2024 10:11 PM EST) Glucose POCT 157(H) 70 - 100 mg/dL 08/24/2024 10:13 PM EST [facility] Blood Capillary blood specimen / Unknown 08/24/2024 10:11 PM EST 08/24/2024 10:14 PM EST Jemal Padilla MD LAB POINT OF CARE T EST DOCKED DEVICE UNSOLICITED RESULTS Final Result Performing Organization Address City/[facility]/ZIP Co de Phone Number [facility] [address] [place] [address], * (ABNORMAL) Tryptase (08/24/2024 10:00 PM EST) Tryptase 24(H) <11 ug/L 08/28/2024 12:[address] [facility] Comment: Test performed at [facility], [address] , [place], [place] ??[address] ? [phone] Kaylan Rm MD, PhD - Distribution Lineman Blood Venous blood specimen / Unknown Venipuncture / Unknown 08/24/2024 10:00 PM EST 08/24/2024 10:06 PM EST Jemal Padilla MD LAB BLOOD ORDERABLES Final Result [facility] [address] [place] [address] * (ABNORMAL) CBC (08/24/2024 7:42 PM EST) WBC 10.5 4.8 - 10.8 K/[facility] HEMETOLOGY METHOD 08/24/2024 8:[address] [facility] RBC 3.40(L) 3.80 - 4.80 M/mcL LAB HEMETOLOGY METHOD 08/24/2024 8:[address] [facility] Hemoglobin 10.3(L) 11.5 - 16.0 g/dL LAB HEMETOLOGY METHOD 08/24/2024 8:[address] [facility] Hematocrit 32.1(L) 35.0 - 47.0 % LAB HEMETOLOGY METHOD 08/24/2024 8:[address] [facility] MCV 94.4 79.0 - 98.0 FL LAB HEMETOLOGY METHOD 08/24/2024 8:[address] [facility] MCH 30.3 27.0 - 32.0 pcg LAB HEMETOLOGY METHOD 08/24/2024 8:[address] [facility] MCHC 32.1 32.0 - 37.0 g/dL LAB HEMETOLOGY METHOD 08/24/2024 8:[address] [facility] RDW 13.2 11.0 - 15.0 % LAB HEMETOLOGY METHOD 08/24/2024 8:[address] [facility] Platelets 434(H) 130 - 400 K/mcL LAB HEMETOLOGY METHOD 08/24/2024 8:[address] [facility] MPV 10.3 7.0 - 11.0 FL LAB HEMETOLOGY METHOD 08/24/2024 8:[address] [facility] NRBC 0.0 <1.0 % LAB HEMETOLOGY METHOD 08/24/2024 8:[address] [facility] NRBC Absolute 0.00 <0.10 K/mcL LAB HEMETOLOGY METHOD 08/24/2024 8:[address] [facility] Blood Venous blood specimen / Unknown Venipuncture / Unknown 08/24/2024 7:42 PM EST 08/24/2024 8:34 PM EST us Oscar BLOOM LAB BLOOD ORDERABLES Final R esult [facility] [address] [place] [address], [place] [phone] * (ABNORMAL) Basic Metabolic Panel (BMP) (08/24/2024 7:42 PM EST) Sodium 137 133 - 145 mmol/L LAB CHEMISTRY METHOD 08/24/2024 9:[address] [facility] Potassium 4.5 3.5 - 5.5 mmol/L LAB CHEMISTRY METHOD 08/24/2024 9:[address] [facility] Chloride 107 96 - 110 mmol/L LAB CHEMISTRY METHOD 08/24/2024 9:[address] [facility] CO2 24 21 - 32 mmol/L LAB CHEMISTRY METHOD 08/24/2024 9:[address] [facility] Anion Gap 6 3 - 11 LAB CHEMISTRY METHOD 08/24/2024 9:[address] [facility] Glucose 129(H) 70 - 100 mg/dL LAB CHEMISTRY METHOD 08/24/2024 9:[address] [facility] BUN 23 5 - 25 mg/dL LAB CHEMISTRY METHOD 08/24/2024 9:[address] [facility] Creatinine 0.77 0.50 - 1.10 mg/dL LAB CHEMISTRY METHOD 08/24/2024 9:[address] [facility] eGFR 84 >=60 mL/min/1. 73m2 LAB CHEMISTRY METHOD 08/24/2024 9:[address] [facility] Comment:Calculation based on the??Chronic Kidney Disease Epidemiology Collaboration (CKD-EPI) equation refit??without adjustment for race. BUN/Creatinine Ratio 29.9 LAB CHEMISTRY METHOD 08/24/2024 9:[address] [facility] Calcium 9.0 8.5 - 10.5 mg/dL LAB CHEMISTRY METHOD 08/24/2024 9:00 PM EST [facility] Blood Venous blood specimen / Unknown Venipuncture / Unknown 08/24/2024 7:42 PM EST 08/24/2024 8:33 PM EST Oscar BLOOM LAB BLOOD ORDERABLES Final R esult Performing Organization Address City/[facility]/ZIP Co de Phone Number [facility] [address] [place] [address], [place] [phone] * Green LI heparin tube (08/24/2024 7:41 PM EST) Extra Tube Hold for add-ons. 08/24/2024 10:01 PM EST [facility] Comment:Auto resulted. Blood Venous blood specimen / Unknown 08/24/2024 7:41 PM EST 08/24/2024 8:33 PM EST Mariaelena Ya DO LAB BLOOD ORDERABLES Kiki l Result Performing Organization Address [facility] Co de Phone Number [facility] [address] [place] [address], [place] [phone] * Type and screen (08/24/2024 7:41 PM EST) ABO Group A 08/24/2024 9:19 PM EST [facility] Rh Type Positive 08/24/2024 9:19 PM EST [facility] Antibody Screen Negative 08/24/2024 9:19 PM EST [facility] Blood Venous blood specimen / Unknown Venipuncture / Unknown 08/24/2024 7:41 PM EST 08/24/2024 8:32 PM EST Oscar BLOOM LAB BLOOD BANK TEST ORDERABL ES Final Result Performing Organization Address City/[facility]/ZIP Co de Phone Number [facility] [address] [place] [address], * Prepare Plasma: 2 Units (08/24/2024 7:37 PM EST) Product Code [id number] 08/24/2024 10:24 PM EST [facility] Unit Number [id number] 08/24/19 10:24 PM EST [facility] Dispense Status Transfused 08/24/2024 10:24 PM EST [facility] Unit ABO Rh APOS 08/24/2024 10:24 PM EST [facility] Unit Expiration Date Time [id number] 08/24/2024 10:24 PM EST [facility] Unit Blood Type 6200 08/24/2024 10:24 PM EST [facility] Product Code [id number] 08/25/2024 12:32 AM EST [facility] Unit Number [id number] 08/25/19 12:32 AM EST [facility] Dispense Status Transfused 08/25/2024 12:32 AM EST [facility] Unit ABO Rh APOS 08/25/2024 12:32 AM EST [facility] Unit Expiration Date Time [id number] 08/25/2024 12:32 AM EST [facility] Unit Blood Type 6200 08/25/2024 12:32 AM EST [facility] Blood Venous blood specimen / Unknown 08/24/2024 7:37 PM EST Oscar BLOOM BLOOD BANK PRODUCT ORDERABLE S Final Result [facility] [address] [place] [address], documented in this encounter Visit Diagnoses Diagnosis [...] at 2156, 2nd Line Option: -ONLY give WI if patient is unable to take orally [...] 1 dose 1922 (Given - Provider: Lizzy Barbosa RN) enoxaparin (LOVENOX) injection 40 mg 40 mg, [...] 1 dose 1924 (Given - Provider: Lizzy Barbosa RN) insulin glargine (LANTUS) injection 15 Units 15 Units, subcutaneous, Nightly, First dose on 08/25/24 at 0030, Notify provider: -If patient is currently or will become NPO -If TPN was or will be interrupted or discontinued -For approval to hold long acting insulin 2338 (Given - Provider: Lizzy Barbosa RN) insulin lispro injection 2-12 Units 2-12 Units, [...] administer correction factor for high blood glucose 2339 (Given - Provider: Lizzy Barbosa RN) 0836 (Given - Provider: Demarcus Hodges, SOOT)1108 (Given - Provider: Demarcus Hodges, SOTO) methylPREDNISolone sodium succ (SOLU-Medrol) injection 125 mg (COMPLETED) 125 mg, intravenous, Once, On 08/24/24 at 1915, For 1 dose, Reconstitute each 125 mg vial with 2 mL sterile water for injection to a concentration of 62.5 mg/mL. 1922 (Given - Provider: Lizzy Barbosa RN) sodium chloride 0.9 % flush 10 mL(Linked Group 1) 10 mL, intravenous, 2 times daily, First dose on 08/24/24 at 2157 2224 (Given - Provider: Lizzy Barbosa RN) 0837 (Given - Provider: Demarcus Hodges RN) Continuous Medication Order 08/23/2024 08/24/2024 08/25/2024 sodium chloride 0.9 % infusion 75 mL/hr, intravenous, Continuous, Starting on 08/24/24 at 2330, For 13 hours 2340 (New Bag - Provider: Lizzy Barbosa RN) 0632 (Rate/Dose Verify - Provider: Paola Hernandez RN)1101 (Stopped - Provider: Demarcus Hodges, SOTO) PRN [...] at 2156, 2nd Line Option: -ONLY give WI if patient is unable to take orally [...] line care, Starting on 08/24/24 at 2156 0837 (Given - Provid er: Demarcus Hodges [...] IV (COMPLETED) STAT, Once, On 08/24/24 at 2157, For 1 occurrence And Maintain IV access (CANCELED) Until discontinued, Starting on 08/24/24 at 2157, Until Specified And Saline lock IV (COMPLETED) Routine, Once, On 08/24/24 at 2157, For 1 occurrence And sodium chloride 0.9 % flush 10 mLJump to med 10 mL, intravenous, 2 times daily, First dose on 08/24/24 at 2157 And sodium chloride 0.9 % flush 10 mLJump to med 10 mL, intravenous, As needed, line care, Starting on 08/24/24 at 2156 Group 2: ondansetron ODT (ZOFRAN-ODT) disintegrating tablet [...] at 2156, 2nd Line Option: -ONLY give WI if patient is unable to take orally and cannot receive IV/IM. -If inadequate response within 30 minutes, proceed to next-line agent or contact provider if no further options ordered. documented in this encounter Orders Medications Ordered That Zay ht Not Have Been Administered Count Last Ordered Date First Ordered Date acetaminophen (TYLENOL) tablet 650 mg 1 02/2025 dextrose (D50W) 50% injection 12.5 g 02/2025 dextrose (D50W) 50% injection 25 g 1 2024 dextrose 15 gram/60 mL oral solution 15 g 08/24/2024 dextrose 15 gram/60 mL oral solution 30 g 08/24/2024 diphenhydrAMINE (BENADRYL) injection 25 mg 1 08/24/2024 enoxaparin (LOVENOX) injection 40 mg 02/2025 Glucagon HCl (rDNA) injection 1 mg 1 2024 methylPREDNISolone sodium payne cc (SOLU-Medrol) injection 40 mg 1 08/24/2024 ondansetron (PF) (ZOFRAN) injection 4 mg 08/24/2024 ondansetron ODT (ZOFRAN-ODT) disintegrating tablet 4 mg 08/24/2024 prochlorperazine (COMPAZINE) injection 10 mg 1 08/24/2024 prochlorperazine (COMPAZINE) suppository 25 mg 1 08/24/2024 prochlorperazine (COMPAZINE) tablet 10 mg 08/24/2024 sodium chloride 0.9 % infusion 1 08/24/2024 Lab Orders Without Results Count Last Ordered D ate First Ordered Date POCT GLUCOSE, BLOOD 3 08/25/2024 08/24/19 25 Nursing Count Last Ordered Date First Orde red Date NOTIFY PROVIDER - INDICATE REASON 1 025 [id number] 1 08/24/2024 VITAL SIGNS 1 08/24/2024 IV [...] 08/25/2024 documented in this encounter Care Teams Claim Clinician Relationship Specialty Start Date End Date Presley Perez MD [address] [place] [address] Dr [address] [facility] [place] [address] PCP - General 05/15/23 documented as of this encounter
--- OUTSIDE RECORDS SUMMARY | 2024-09-03 11:36 | XMS_ITS | Clinical Summary ---
Author Organization [facility] Address [address] [place] [address] Phone Care Team Providers Care Hot Packer Name Role Phone Presley Perez MD Primary Care Provider Allergies Active Allergy Reactions Criticality Noted Date [...] EST - 08/25/2024 11:39 AM EST Emergency [facility] Emergency [address] [place] [address] Mariaelena Ya DO Jones, Christopher, MD Kela, Kashyap Devendrabhai, MD Angioedema, initial encounter (Primary Dx) Discharge Disposition: Home or Self Care from Last 3 Months Medical History Medical History Date Comments DM (diabetes mellitus) ([facility]) HTN (hypertension) Social History Tobacco Use Types [...] Last Done Comments Breast Cancer Screening 1955 Diabetes: Annual Foot Exam 1965 Diabetes: Annual Retina Eye Exam 1965 DTaP,Tdap,and Td Vaccines (1 - Tdap) 1974 Pneumococcal Vaccine: 50+ Years (1 of 2 - PCV) 1974 Zoster Vaccines (1 of 2) 2005 RSV Immunization Patients 60 + Years Old (1 - Risk 60-74 years 1-dose series) 2015 Cholesterol Screening (Lipid Panel) 08/11/2023 Colorectal Cancer Screening: Colonoscopy 08/11/2023 Depression Screening 08/11/2023 Falls Risk Assessment 08/11/2023 Hepatitis C Screening 08/11/2023 Medicare Annual Wellness Visit 08/11/2023 Osteoporosis Screening (Bone Density Screening) 08/11/2023 Social Influencers of Health Screening 08/11/2023 COVID-19 Vaccine (1 - 2023-2 5 season) 2024 Influenza Vaccine [...] of3 resultswithin the time period is included. [facility] Glucose POCT 306(H) 70 - 100 mg/dL 08/25/2024 10:46 AM [facility] Blood Capillary blood specimen / Unknown 08/25/2024 10:45 AM EST 08/25/2024 10:47 AM EST Abdi Raymundo MD LAB POINT O F CARE TEST DOCKED DEVICE UNSOLICITED RESULTS Final Result [facility] [address] [place] [address], * (ABNORMAL) CBC auto differential (08/25/2024 5:12 AM EST) [facility] WBC 9.4 4.8 - 10.8 K/mcL LAB HEMETOLOGY METHOD 08/25/2024 7:32 AM [facility] RBC 3.60(L) 3.80 - 4.80 M/mcL LAB HEMETOLOGY METHOD 08/25/2024 7:32 AM [facility] Hemoglobin 10.5(L) 11.5 - 16.0 g/dL LAB HEMETOLOGY METHOD 08/25/2024 7:32 AM [facility] Hematocrit 33.1(L) 35.0 - 47.0 % LAB HEMETOLOGY METHOD 08/25/2024 7:32 AM [facility] MCV 93.2 79.0 - 98.0 FL LAB HEMETOLOGY METHOD 08/25/2024 7:32 AM [facility] MCH 29.6 27.0 - 32.0 pcg LAB HEMETOLOGY METHOD 08/25/2024 7:32 AM [facility] MCHC 31.7(L) 32.0 - 37.0 g/dL LAB HEMETOLOGY METHOD 08/25/2024 7:32 AM [facility] RDW 13.2 11.0 - 15.0 % LAB HEMETOLOGY METHOD 08/25/2024 7:32 AM [facility] Platelets 409(H) 130 - 400 K/mcL LAB HEMETOLOGY METHOD 08/25/2024 7:32 AM [facility] MPV 10.4 7.0 - 11.0 FL LAB HEMETOLOGY METHOD 08/25/2024 7:32 AM [facility] NRBC 0.0 <1.0 % LAB HEMETOLOGY METHOD 08/25/2024 7:32 AM [facility] NRBC Absolute 0.00 <0.10 K/mcL LAB HEMETOLOGY METHOD 08/25/2024 7:32 AM [facility] Neutrophils Relative 83.9 % LAB HEMETOLOGY METHOD 08/25/2024 7:32 AM [facility] Lymphocytes Relative 14.2 % LAB HEMETOLOGY METHOD 08/25/2024 7:32 AM [facility] Monocytes Relative 1.3 % LAB HEMETOLOGY METHOD 08/25/2024 7:32 AM [facility] Eosinophils Relative 0.0 % LAB HEMETOLOGY METHOD 08/25/2024 7:32 AM [facility] Basophils Relative 0.1 % LAB HEMETOLOGY METHOD 08/25/2024 7:32 AM [facility] Immature Granulocytes Relative 0.5 % LAB HEMETOLOGY METHOD 08/25/2024 7:32 AM [facility] Neutrophils Absolute 7.91(H) 1.50 - 7.00 K/mcL LAB HEMETOLOGY METHOD 08/25/2024 7:32 AM EST [facility] Lymphocytes Absolute 1.34 1.00 - 5.00 K/mcL LAB HEMETOLOGY METHOD 08/25/2024 7:32 AM [facility] Monocytes Absolute 0.12(L) 0.20 - 1.00 K/mcL LAB HEMETOLOGY METHOD 08/25/2024 7:32 AM EST [facility] Eosinophils Absolute 0.00 0.00 - 0.50 K/[facility] LAB HEMETOLOGY METHOD 08/25/2024 7:32 AM [facility] Basophils Absolute 0.01 0.00 - 0.20 K/[facility] LAB HEMETOLOGY METHOD 08/25/2024 7:32 AM [facility] Immature Granulocytes Absolute 0.05(H) 0.00 - 0.03 K/[facility] LAB HEMETOLOGY METHOD 08/25/2024 7:32 AM [facility] Blood Venous blood specimen / Unknown Venipuncture / Unknown 08/25/2024 5:12 AM EST 08/25/2024 7:05 AM EST us Jemal Padilla MD LAB BLOOD ORDERABLES Final Result [facility] [address] [place] [address], * (ABNORMAL) Basic metabolic panel (08/25/2024 5:12 AM EST) Only the most recent of2 resultswithin the time period is included. Sodium 137 133 - 145 mmol/L LAB CHEMISTRY METHOD 08/25/2024 7:51 AM [facility] Potassium 4.6 3.5 - 5.5 mmol/L LAB CHEMISTRY METHOD 08/25/2024 7:51 AM [facility] Chloride 108 96 - 110 mmol/L LAB CHEMISTRY METHOD 08/25/2024 7:51 AM [facility] CO2 24 21 - 32 mmol/L LAB CHEMISTRY METHOD 08/25/2024 7:51 AM [facility] Anion Gap 5 3 - 11 LAB CHEMISTRY METHOD 08/25/2024 7:51 AM [facility] Glucose 288(H) 70 - 100 mg/dL LAB CHEMISTRY METHOD 08/25/2024 7:51 AM [facility] BUN 19 5 - 25 mg/dL LAB CHEMISTRY METHOD 08/25/2024 7:51 AM [facility] Creatinine 0.79 0.50 - 1.10 mg/dL LAB CHEMISTRY METHOD 08/25/2024 7:51 AM [facility] eGFR 81 >=60 mL/min/1. 73m2 LAB CHEMISTRY METHOD 08/25/2024 7:51 AM [facility] Comment:Calculation based on the??Chronic Kidney Disease Epidemiology Collaboration (CKD-EPI) equation refit??without adjustment for race. BUN/Creatinine Ratio 24.1 LAB CHEMISTRY METHOD 08/25/2024 7:51 AM [facility] Calcium 8.8 8.5 - 10.5 mg/dL LAB CHEMISTRY METHOD 08/25/2024 7:51 AM [facility] Blood Venous blood specimen / Unknown Venipuncture / Unknown 08/25/2024 5:12 AM EST 08/25/2024 7:07 AM EST us Jemal Padilla MD LAB BLOOD ORDERABLES Final Result [facility] [address] [place] [address], * Transfuse Plasma (08/25/2024 4:04 AM EST) Only the most recent of2 resultswithin the time period is included. us Jemal Padilla MD BLOOD TRANSFUSION ORDERABLE S Final Result * (ABNORMAL) Tryptase (08/24/2024 10:00 PM EST) Pathologist [facility] Tryptase 24(H) <11 ug/L 08/28/2024 12:29 PM EST [facility] Comment: Test performed at [facility], [address], [place], [place] ??[address] ? [phone] Kaylan Rm MD, PhD - Disposal Worker Blood Venous blood specimen / Unknown Venipuncture / Unknown 08/24/2024 10:00 PM EST 08/24/2024 10:06 PM EST us Jemal Padilla MD LAB BLOOD ORDERABLES Final Result [facility] [address] [place] [address] * (ABNORMAL) CBC (08/24/2024 7:42 PM EST) [facility] WBC 10.5 4.8 - 10.8 K/mcL LAB HEMETOLOGY METHOD 08/24/2024 8:42 PM [facility] RBC 3.40(L) 3.80 - 4.80 M/mcL LAB HEMETOLOGY METHOD 08/24/2024 8:42 PM [facility] Hemoglobin 10.3(L) 11.5 - 16.0 g/dL LAB HEMETOLOGY METHOD 08/24/2024 8:42 PM [facility] Hematocrit 32.1(L) 35.0 - 47.0 % LAB HEMETOLOGY METHOD 08/24/2024 8:42 PM [facility] MCV 94.4 79.0 - 98.0 FL LAB HEMETOLOGY METHOD 08/24/2024 8:42 PM [facility] MCH 30.3 27.0 - 32.0 pcg LAB HEMETOLOGY METHOD 08/24/2024 8:42 PM [facility] MCHC 32.1 32.0 - 37.0 g/dL LAB HEMETOLOGY METHOD 08/24/2024 8:42 PM EST [facility] RDW 13.2 11.0 - 15.0 % LAB HEMETOLOGY METHOD 08/24/2024 8:42 PM EST [facility] Platelets 434(H) 130 - 400 K/mcL LAB HEMETOLOGY METHOD 08/24/2024 8:42 PM EST [facility] MPV 10.3 7.0 - 11.0 FL LAB HEMETOLOGY METHOD 08/24/2024 8:42 PM EST [facility] NRBC 0.0 <1.0 % LAB HEMETOLOGY METHOD 08/24/2024 8:42 PM EST [facility] NRBC Absolute 0.00 <0.10 K/mcL LAB HEMETOLOGY METHOD 08/24/2024 8:42 PM EST [facility] Blood Venous blood specimen / Unknown Venipuncture / Unknown 08/24/2024 7:42 PM EST 08/24/2024 8:34 PM EST Oscar BLOOM LAB BLOOD ORDERABLES Final R esult [facility] [address] [place] [address], * Green LI heparin tube (08/24/2024 7:41 PM EST) Extra Tube Hold for add-ons. 08/24/2024 10:01 PM EST [facility] Comment:Auto resulted. Blood Venous blood specimen / Unknown 08/24/2024 7:41 PM EST 08/24/2024 8:33 PM EST Maraielena Ya DO LAB BLOOD ORDERABLES Kiki l Result [facility] [address] [place] [address], [place] [phone] * Type and screen (08/24/2024 7:41 PM EST) Pathologist [facility] ABO Group A 08/24/2024 9:19 PM EST [facility] Rh Type Positive 08/24/2024 9:19 PM EST [facility] Antibody Screen Negative 08/24/2024 9:19 PM EST [facility] Blood Venous blood specimen / Unknown Venipuncture / Unknown 08/24/2024 7:41 PM EST 08/24/2024 8:32 PM EST Oscar BLOOM LAB BLOOD BANK TEST ORDERABL ES Final Result [facility] [address] [place] [address], [place] [phone] * Prepare Plasma: 2 Units (08/24/2024 7:37 PM EST) [facility] Product Code [id number] 08/24/2024 10:24 PM [facility] Unit Number [id number] 08/24/19 25 10:24 PM [facility] Dispense Status Transfused 08/24/2024 10:24 PM [facility] Unit ABO Rh APOS 08/24/2024 10:24 PM [facility] Unit Expiration Date Time [id number] 08/24/2024 10:24 PM [facility] Unit Blood Type 6200 08/24/2024 10:24 PM [facility] Product Code [id number] 08/25/2024 12:32 AM [facility] Unit Number [id number] 08/25/19 25 12:32 AM EST [facility] Dispense Status Transfused 08/25/2024 12:32 AM [facility] Unit ABO Rh APOS 08/25/2024 12:32 AM [facility] Unit Expiration Date Time [id number] 08/25/2024 12:32 AM [facility] Unit Blood Type 6200 08/25/2024 12:32 AM [facility] Blood Venous blood specimen / Unknown 08/24/2024 7:37 PM EST Oscar BLOOM BLOOD BANK PRODUCT ORDERABLE S Final Result [facility] [address] [place] [address], from Last 3 Months Insurance [employer] Member Subscriber Plan / Payer (Ef fective 2020-Present) Name:Gayle Antoine Relation to Subscriber:Self Name:Gayle Antoine Payer ID:[id number] Group ID:[id number] Type:Not on file Address: [address] ST[address] [place] [phone] Advance Directives * Full Code - Default [...] currently active code status orders. Care Teams Hot Packer Relationship Specialty Start Date End Date Presley Perez MD [address] [facility] [address] [facility] [place] [address] PCP - General 05/15/23
--- OUTSIDE RECORDS SUMMARY | 2024-09-03 11:36 | XMS_ITS | Patient Health Record ---
Author Organization [facility] Address [address] [place] [address] Care Team Providers Care Soda Jerker Name Role Phone Presley Perez Primary Care Provider Darrion Patel Unavailable [phone] Allergies Allergen (clinical drug ingredient) Drug/Non Drug Allergy documented on EMR Reaction Allergy Type Onset Date Status Eggs or Egg-derived Products vomiting Drug Allergy Active Reason For Referral No Information Medications Medication SIG (Take, Route, Frequency, Duration) Notes Start Date End Date Status Extra Depth Orthopedic Shoes (1 Pair) with Customized Heat Molded Multidensity Innersoles (3 Pair) as directed Dx: IDDM/Polyneuropathy (E10.42), Hammertoe Foot Deformity (M20.41,M20.42), Preulcerative Skin Lesion(s) (L85.1) 07/08/2022 Active Atorvastatin Calcium 20 MG 1 tablet Orally Active Custom Orthotics as directed 07/08/2022 Active metFORMIN HCl 500 MG 1 tablet with a pierre l Orally Once a day for 30 day(s) Active D3 Active Multivitamin Active Famotidine Active Fenofibrate 48 MG 1 tablet Orally Once a day for 30 day(s) Active Escitalopram Oxalate 20 MG 1 tablet Oral ly Once a day for 30 day(s) Active Neurontin 300 MG 1 capsule Orally Onc e a day for 30 day(s) Active NovoLOG Active Lantus Active Januvia 100 MG 1 tablet Orally Once a day for 30 day(s) Active Physical Therapy . . . 2-3x/week for 3- 4 weeks 07/08/2022 Active Night Splint AFO - L1930 as directed 07/08/2022 Active Social History Tobacco Use: Social History Observation Description Date Details (start date - stop date) Former Smoker NA - NA Tobacco Use/Smoking Question Answer Notes Are you a: former smoker Alcohol Screen Question Answer Notes Did you have a drink containing alcohol in the p ast year? No Points 0 Interpretation Negative Tobacco use other than smoking: Question Answer Notes Are you an other tobacco user? No Problems Problem Type SNOMED Code ICD Code Onset Dates Problem Status W/U Status Risk Notes Problem Polyneuropathy due to diabetes mellitus type I (444253263) Type 1 diabetes mellitus with diabetic polyneuropathy (E10.42) Active confirmed Plan Of Treatment Pending Test Test Name Order Date X ray : Foot, left 3V 07/08/2022 X ray : Foot, right 3V 07/08/2022 Insurance Providers Payer Name Payer Address Payer Phone Subscriber Number Group Number Insured Name Patient Relationship to Insured Coverage Start Date Coverage End Date [facility] [employer] Claims [address] [place] [address] [phone] [id number] Gayle Antoine Self - patient is the insured Medical (General) History Medical History History ICD Code anemia Anxiety Back,Hip,and Knee pain CAD (Cholesterol) Cataracts Depression Diabetic Gall bladder problems Osteoporosis Reflux ( GERD) Chicken pox Surgical History Surgery Date(Month/Year) gall bladder 1995
== END 2024-09-03 10:35 | disposition home or self-care (01) ==
LOC: HO.SH 10:34
PROVIDERS: Visit Provider Internal Medicine
DX: Z01.118 Encounter for examination of ears and hearing with other abnormal findings (principal); H91.93 Unspecified hearing loss, bilateral
CPT/HCPCS: 92557; 92567

== ENCOUNTER 2024-11-13 11:09 | Outpatient (AMB) | payer OTHER, SELFPAY ==
[2024-11-13 11:14] VITALS: BP 124/58; PULSE 61; TEMP 36.2; O2SAT 97; BMI 25.2
--- NOTE | 2024-11-13 11:14 | MHC.PC.OV ---
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 Required: No Accompanied by: Self / Same As Patient Allergies amoxicillin Allergy (Intermediate, Verified 11/13/24 11:16) Rash egg Allergy (Mild, Verified 11/13/24 11:16) Nausea and Vomiting lisinopril Adverse Reaction (Severe, Verified 11/13/24 11:16) Angioedema doxycycline Adverse Reaction (Mild, Verified 11/13/24 11:16) Rash prednisone Adverse Reaction (Mild, Uncoded 11/13/24 11:16) Headaches Medication List - Last Reconciled 11/13/24 by Presley Perez MD atorvastatin 20 mg PO BEDTIME [Bath mat As directed] BD Wendy 2nd Gen Pen Needle (pen needle, diabetic) 5 times a day NS blood pressure monitor (Blood Pressure Kit) As directed blood sugar diagnostic (FreeStyle Lite Strips) As directed three times a day blood-glucose meter (FreeStyle Lite Meter kit) As directed cholecalciferol (vitamin D3) 50 mcg PO DAILY 90 days [DIABETIC SHOEs As directed] escitalopram oxalate (Lexapro) 20 mg PO DAILY 90 days famotidine 20 mg PO BID fenofibrate nanocrystallized 145 mg PO DAILY 90 days flash glucose sensor (FreeStyle Adi 14 Day Sensor kit) As directed gabapentin 300 mg PO BID 90 days insulin glargine (Lantus Solostar U-100 Insulin) 27 units (0.27 mL) subcut DAILY insulin lispro (Humalog KwikPen (U-100) Insulin) subcutaneously Inject 4 times a day according to sliding scale 2-10 units; or as directed less than 60 drink orange juice, 61-150 no coverage, 151-230 2 units, 231 to 280 4 units, 281-330 6 units, 331-380 8 units, > 380 10 units ketorolac 0.5% 0 drps ophthalmic (eye) lancets As directed metformin 1,000 mg PO BID 30 days mupirocin 2% 1 appl topical BID pen needle, diabetic (Unifine Pentips) USE FOUR TIMES A DAY DIRECTED (BULK) sitagliptin phosphate (Januvia) 100 mg PO DAILY 90 days sumatriptan succinate 50 mg PO .QD PRN triamcinolone acetonide 0.5% 1 appl topical BID Tobacco use date assessed: 08/07/24 Fall risk assessment: No Falls in past year Last assessed Fall Risk: 11/13/24 Dental Screening Dental Screen Date: 08/07/24 FOR[facility]LY [facility] Medical History Cough RUQ abdominal pain Plantar fasciitis, bilateral Osteoporosis Breast calcifications Breast cancer screening by mammogram Pancreatitis Breast calcification, left Tobacco abuse Type 2 diabetes mellitus with hyperglycemia, with long-term current use of insulin Hypertriglyceridemia custodial current use of insulin Hyperlipidemia LDL goal <100 Diabetic neuropathy Esophagitis Anemia Surgical History History of cataract surgery Hx of mammogram H/O esophagogastroduodenoscopy History of colonoscopy Hx of cholecystectomy Family History Father Diabetes Mother Diabetes Social History Household Members: None Housing: Apartment Alcohol intake: never Patient Tobacco Use Status: Former Tobacco user Tobacco use type: Cigarette Cigarettes Per Day: 5 Years Smoked: quit 2021 e-Cigarette/Vaping Use: Never Used Second Hand Smoke Exposure: No service: No Current occupational status: retired Current occupation: left handed Cognitive needs: No Hearing needs: No Vision needs: Yes Questionnaire Thrive Questionnaire Date Thrive assessed: 09/02/24 I am a: Patient What is your living situation today?: I have a steady place to live Within the past 12 months, did the food you bought not last and you didn't have the money to get more?: Never true Within the past 12 months, did you worry whether your food would run out before you got money to buy more?: Never true Do you have trouble paying for medicines?: Yes Do you have trouble getting transportation to medical appointments?: No Do you have trouble paying your heating and electricity bill?: No Do you have trouble taking care of your child, family member or friend?: No Do you have trouble with day-to-day activities such as bathing, preparing meals, shopping, managing finances, etc.?: No Are you currently unemployed and looking for a job?: No Are you interested in more education?: Yes Please select the resources that you would like help with: Education Currently or been in a relationship where the following occur: I choose not to answer THRIVE Score: 0 WILLA-7 AMB Questionnaire WILLA-7 Date WILLA - 7 assessed: 08/07/24 Source: Developed by Drs. Keith Morrison, Alka Hawkins, Sonny Geiger and colleagues, with an educational mary from [employer]. Physical exam (Primary Care) Vital Signs: Last Vital Signs Temp 97.1 F 11/13/24 11:14 Pulse 61 11/13/24 11:14 BP 124/58 L 11/13/24 11:14 Pulse Ox 97 11/13/24 11:14 Oxygen Delivery Method Room Air 11/13/24 11:14 BMI result Body Mass Index 25.2 Tobacco/Smoking Status: Tobacco use Status Tobacco use date assessed 08/07/24 11/13/24 11:15 Patient Tobacco Use Status Former Tobacco user 11/13/24 11:15 Tobacco use type Cigarette 11/13/24 11:15 e-Cigarette/Vaping Use Never Used 11/13/24 11:15 Thrive Assessment: Date of Thrive Assessment Date Thrive assessed 09/02/24 11/13/24 11:15 Currently or been in a relationship where the following occur: I choose not to answer Const General: alert; No acute distress Eyes Conjunctivae: conjunctivae normal Resp Auscultation: clear to auscultation bilaterally Cardio Rate: regular rate Rhythm: regular rhythm GI Inspection: Yes normal to inspection Extrem General: Yes normal to inspection and No edema Results AMB Hemoglobin A1c AMB Hemoglobin A1c 7.4 % Last Edit by TAMANNA Baptiste on 11/13/24 11:33 Results Reviewed Results Reviewed: Laboratory Last Values Hgb A1c (Clinic) 7.4 % (4.0-6.0) H 11/13/24 11:20 Coding Level of Care Code Est Pt Level 4 (54170) Complex EM visit Add On G2211 Diagnoses Type 2 diabetes mellitus with hyperglycemia E11.65 Hyperlipidemia LDL goal <100 E78.5 GERD with esophagitis K21.00 Generalized anxiety disorder F41.1 Mass of joint of left ankle M25.872 Angioedema T78.3XXA Assessment & Plan Assessment & Plan (1) Type 2 diabetes mellitus with hyperglycemia: Code(s): E11.65 - Type 2 diabetes mellitus with hyperglycemia Category: Medical Plan: Decrease the amount of carbohydrate intake, pasta, bread, rice and potatoes are all sugar and that is aside from all the sweet stuff, remember that fruits are good but they are Sweet also. Hemoglobin A1c goal of less than 7.0. Patient on Lantus 27 units once a day Humalog sliding scale metformin is a 1000 mg twice a day Januvia 100 mg once a day. decline additional med for now (2) Hyperlipidemia LDL goal <100: Comment: Dr. Blevins Code(s): E78.5 - Hyperlipidemia, unspecified Category: Medical Plan: Avoid fried foods, chicken skin, eggs, butter margarine, pastries and meat. Be it pork or beef they have a lot of cholesterol on atorvastatin 20 mg at bedtime LDL goal of less than 100 and triglyceride of less than 150 patient is also on fenofibrate 145 mg once a day 07/2024n last test (3) GERD with esophagitis: Code(s): K21.00 - Gastro-esophageal reflux disease with esophagitis, without bleeding Category: Medical Plan: Avoid the foods that causes that usually spicy foods, tomato products, juices, coffee, soda and foods that your sensitive to. After eating do not lie down, allow 3-4 hours before in lie down. And keep the head of bed above 30 degrees to avoid the acid from going up. (4) Generalized anxiety disorder: Comment: decline counselling 01/2022 Code(s): F41.1 - Generalized anxiety disorder Category: Medical Plan: Continue with gabapentin (5) Mass of joint of left ankle: Code(s): M25.872 - Other specified joint disorders, left ankle and foot Category: Medical Plan: Patient's procedure was held. (6) Angioedema: Code(s): T78.3XXA - Angioneurotic edema, initial encounter Category: Medical Plan: Patient is advised to stop lisinopril Plan History of Present Illness The patient is a 69-year-old female presenting for follow-up care pertaining to her chronic conditions and recent exacerbations. She has a known history of Type 2 Diabetes Mellitus with the most recent Hemoglobin A1c level being 7.4% in July 2024, indicating suboptimal glycemic control. She is managed on Lantus (27 units daily), Humalog sliding scale, Metformin (1000 mg twice daily), and Januvia (100 mg daily). She reports recent efforts to manage her blood sugar through increased physical activity, specifically by starting a walking routine. The patient also has hypercholesterolemia, with LDL levels well-managed at 50 mg/dL as of July 2024. Her therapy includes Atorvastatin (20 mg at bedtime) and Fenofibrate (145 mg once daily). The patient reports allergy to Lisinopril after experiencing angioedema with right-sided tongue numbness and swelling in August 2024 following hospitalization. Lisinopril was subsequently discontinued. Her allergies include shellfish, specifically lobster, shrimp, and tuna, leading to pruritus previously. She complains of chronic right arm pain, limited mobility, and difficulty dressing, with associated pain interfering with daily activities. Surgery for this condition was previously deferred due to concerns about allergic reactions. Health Maintenance - Colonoscopy: Up to date. - Bone Density Test: Up to date. - Mammogram: Due. - Hemoglobin A1c: 7.4% in July 2024, indicating suboptimal control. - LDL Cholesterol: 50 mg/dL in July 2024, well-controlled. - Recommendation for Shingles Vaccination discussed. - Encouragement of increased physical activity for glycemic and overall health management. Social History - Engaged in regular physical activity, specifically walking, to improve health. - Reports stress management challenges impacting glycemic control. Review of Systems - Endocrine: Reports occasional elevated blood glucose levels despite minimal dietary intake. - Musculoskeletal: Reports right arm pain and reduced mobility. - Allergy/Immunologic: Reports shellfish allergies causing pruritus. - General: Denies willingness to receive shingles vaccination currently. Physical Exam Results - Labs: Hemoglobin A1c at 7.4% in July 2024; LDL Cholesterol at 50 mg/dL in July 2024. - Blood Work: Mild leukocytosis and mild thrombocytosis noted in July 2024. March blood work revealed normal kidney function. Plan The patient will continue with the current diabetes management plan, including Lantus, Humalog, Metformin, and Januvia, and focus on lifestyle changes to reduce Hemoglobin A1c levels. Continuation of hypercholesterolemia management with Atorvastatin and Fenofibrate is indicated, with ongoing monitoring of lipid levels. Discontinuation of Lisinopril was reviewed, emphasizing avoidance due to previous angioedema. Allergy management protocols, particularly concerning shellfish, were discussed. I encouraged considering the shingles vaccine to prevent future herpes zoster infections, although the patient is currently hesitant. Future evaluations for the right arm pain and deferred surgery should take into account her allergy profile. Monitoring and follow-up will gauge the effectiveness and facilitate further adjustments in management as needed. Patient was informed and verbally consented to the use of an ambient scribe for clinic note documentation during this visit. Discussion Notes I reviewed the continued management plan for Type 2 Diabetes, focusing on maintaining a Hemoglobin A1c below 7% with existing medications and increased physical activity. The implications of discontinuing Lisinopril due to angioedema were highlighted, and I emphasized the need to avoid shellfish exposure due to allergies. I engaged the patient in a discussion about receiving the shingles vaccine to decrease her risk despite her reluctance, detailing its benefits and the immunization series required. For her musculoskeletal complaints, I reiterated the importance of therapeutic exercises and the potential need for surgical consultation in the future, contingent upon allergy management guidance. Follow-up arrangements were clarified, focusing on ongoing monitoring and any arising acute concerns. Patient Instructions - Continue current diabetes medications and monitor blood glucose levels regularly. - Maintain physical activity, preferably walking, as part of lifestyle management. - Avoid shellfish to prevent allergic reactions. - Consider the shingles vaccine available at pharmacies for future protection. - Continue lipid management with Atorvastatin and Fenofibrate. - Contact the office if experiencing new or worsening symptoms or reactions. 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
--- OUTSIDE RECORDS SUMMARY | 2024-11-13 12:46 | XMS_ITS | Data Portability ---
Author Organization [employer] [place] [facility] Address [address] [place] [address] Care Team Providers Care Diagnostic Assistant Name Role Phone HIM CCA OTHER Assessment Encounter Date Assessment Date Assessment LastModified by Organization Details LastModified Time 11/13/2021 11/13/2021 I have reviewed and agree with the Assessment and Plan as documented by the Memorial Designer. I provided real -time medical direction via phone for this encounter, and was available for additional phone based assistance as needed. Patient given the opportunity to ask questions. [email or web address] Not available 11/13/2021 18:55:00 04/30/2024 04/30/2024 I provided real -time medical direction via phone for this encounter and was available for additional phone-based assistance as needed. I have reviewed and agree with the Assessment and Plan as documented by the Memorial Designer. Patient given the opportunity to ask questions. [...] taking Tylenol with fairly good success. Per software engineering manager on the scene, vital signs are stable and the patient is afebrile currently at 99. The patient is in no distress per software engineering manager on the scene as well as nontoxic. [...] with antibiotics. She can also continue with gkhy-zem-uyicklr medications for cough. She should continue Tylenol [...] particularly fever chills lightheadedness altered mental status [email or web address] Not available 04/30/2024 15:08:48 Plan of Treatment Reminders Order Date Submit Date Provider Last Modified By Organization Details Last Modified Time Details Appointments None recorded. Lab rapid SARS CoV 2 Ag, QL IA, respiratory specimen 2023 [facility], [address] [place] [address], [id number] 4 18:23:08 rapid flu (A+B) 2023 024 [facility], [address] [place] [address], [id number] 4 18:22:39 rapid flu (A+B) 2021 022 [email or web address] 0 [facility], [address] [place] [address], [id number] 2 19:21:25 rapid strep group A, throat 2021 022 [email or web address] 0 [facility], [address] [place] [address], [address] 2 19:21:25 rapid SARS CoV 2 Ag, QL IA, respiratory specimen 2021 022 [email or web address] 0 [facility], [address] [place] [address], [address] 2 19:21:25 glucose, fingerstick , blood 2021 022 [email or web address] 0 [facility], [address] [place] [address], [address] 11:29:59 Referral None recorded. Procedures None recorded. Surgeries None recorded. Imaging None recorded. Medication Orders Augmentin 875 mg-125 mg tablet 2023 024 [facility], [address] [place], [address], 4 15:06:23 Probiotic 10 billion cell capsule 2023 024 [facility], [address] [place], [address], 4 15:06:24 Augmentin 875 mg-125 mg tablet 2023 024 [email or web address], [address] [place], [address], 4 15:09:24 Zithromax Z-Patrice 250 mg tablet 2023 024 [facility], [address] [place], [address], 4 11:44:50 Mucinex 600 mg tablet, extended release 2023 024 [facility], [address] [place], [address], 4 15:46:41 Zithromax Z-Patrice 250 mg tablet 2023 024 [facility], [address] [place], [address], 4 15:46:41 benzonatate 100 mg capsule 2021 022 [facility], [address] [place], [address], 2 19:21:27 Patient TargetsNo targets recorded. Patient InstructionsNo instructions recorded. Reason for Referral None Reported. Results Created Date Observation Date Name Description Value Unit Range Abnormal Flag Note LastModifiedBy Organization Detail LastModifiedTime 11/14/19 22 11/13/2021 rapid SARS CoV 2 Ag, QL IA, respi rator y speci men rapid SARS CoV 2 Ag, QL IA, respiratory specimen negati ve Not Available [facility] [address] [place] [address], [address] 11/13/2021 19:21:11 11/14/19 22 11/13/2021 rapid strep group A, throa t Strep negati ve Not Available [facility] [address] [place] [address], [address] 11/13/2021 19:18:20 11/14/19 22 11/13/2021 rapid flu (A+B) Flu negati ve Not Available [facility] [address] [place] [address], [address] 11/13/2021 18:57:23 11/15/19 22 11/14/2021 gluco se, finge rstic k, blood Blood Glucose: mg/dl 175 Not Available [address], [address] 11/14/2021 11:28:33 04/30/20 24 04/30/2024 rapid SARS CoV 2 Ag, QL IA, respi rator y speci men rapid SARS CoV 2 Ag, QL IA, respiratory specimen negati ve Not Available [facility] [address] [place] [address], [address] 04/30/2024 15:04:36 04/30/20 24 04/30/2024 rapid flu (A+B) Flu negati ve Not Available [facility] [address] [place] [address], [address] 04/30/2024 15:04:38 Result Notes None recorded. Medical Equipment None Reported. Allergies Allergen ID Allergen Name Allergen Category Reaction Reaction Severity Criticality Documentation Date Start Date Code Code System Note Provider Name and Address Organization Details Recorded Time 428 honey bee venom medicatio n Not available Not available Not available 11/13/2021 99655 7 RxNorm Pearl Rubio MD [address] [place] [address],[address], [place], [address], [facility] 18:55:12 8551 egg extract food,medi cation Not available Not available Not available 05/14/2024 66917 15 RxNorm Not Available [facility] - production [...] /min 97 % 97 % 157.48 cm 39182.4 72 g 98.9 [degF] 16 /min 93 /min 125 mm[Hg] 49 mm[Hg] Not Available [facility] [employer] 4 15:34:06 Date Recorded Body height Oxygen saturation Oxygen saturation in Arterial blood by Pulse oximetry Body weight Respiratory rate Body temperature Heart rate Systolic blood pressure Diastolic blood pressure Provider Name and Address Organization Details Last Updated DateTime 4 157.48 cm 96 % 96 % 53536.2 88 g 18 /min 99 [degF] 81 /min 110 mm[Hg] 68 mm[Hg] Not Available [facility] [employer] 4 11:33:55 Date Recorded Body temperature Respiratory rate Oxygen saturation Oxygen saturation in Arterial blood by Pulse oximetry Body height Heart rate Body weight Systolic blood pressure Diastolic blood pressure Provider Name and Address Organization Details Last Updated DateTime 4 99.1 [degF] 16 /min 95 % 95 % 157.48 cm 79 /min 49405.2 88 g 107 mm[Hg] 57 mm[Hg] Not Available [facility] 4 15:02:18 Date Recorded Body height Oxygen saturation Oxygen saturation in Arterial blood by Pulse oximetry Respiratory rate Heart rate Body temperature Respiratory rate Body temperature Oxygen saturation Oxygen saturation in Arterial blood by Pulse oximetry Body height Heart rate Body weight Systolic blood pressure Diastolic blood pressure Systolic blood pressure Diastolic blood pressure Provider Name and Address Organization Details Last Updated DateTime 157.48 cm 95 % 95 % 18 /min 80 /min 98.2 [degF] 18 /min 98.2 [degF] 95 % 95 % 157.48 cm 80 /min 42933.6 56 g 128 mm[Hg] 75 mm[Hg] 128 mm[Hg] 75 mm[Hg] Not Available [employer] [facility] 20:02:40 Date Recorded Body weight Provider Name an d Address Organization Details Last Updated DateTime 11/13/2021 03741.71 g Emily Perez [address] [place] [address],[address], [place], [address], [facility] [facility] 11/13/2021 19:33:12 Social History None recorded. Functional Status None recorded. Mental Status None recorded. Family History Nothing Reported. Medical History No medical history recorded. Gynecological HistoryNo gynecological history recorded. Obstetrics History GPAL:G 0 P 0 0 0 0 Past Encounters Encounter ID Performer Location Encounter Start Date Encounter Closed Date Diagnosis/Indication Diagnosis SNOMED-CT Code Diagnosis ICD10 Code Diagnosis Note [id number] Pearl Rubio MD [address] [address] 11/13/2021 18:52:03 03/24/2022 18:10:46 Viral syndrome 513832028 B34.9 vs reaction to Pfizer vaccine- advised to stay hydrated, max APAP 650 mg q 6 hr, rest/ gargle with warm salt H20/ throat coat tea with lemon/ may have 0.5 tsp honey( aware will raise BS)request ed cough med so Tessalon RX sent in. Advised if develops CP/ cyanosis, severe SOB to call 911 - otherwise f/u pcp 11/15/21 Type 2 marin betes mellitus without complication 207709943 E11.9 [id number] Leobardo Huff MD [address] [address] 08/14/2023 15:33:53 08/15/2023 10:57:22 Acute sinusitis 37821739 J01.10 This 68-year-ol d female presented with [...] this plan. Leobardo Huff MD [facility] [address] 09/12/2023 11:33:53 09/13/2023 17:20:45 Acute sinusitis 80924577 J01.10 This 68-year-ol d female has had typical URI symptoms for several days, and now she has a purulent nasal discharge and pressure on the left side of her face. Her COVID-19 and flu screens were negative. I ordered a Z-Patrice and Mucinex. She will follow-up with her PCP. The patient agreed with this plan. [id number] Lavern Arriaga MD [facility] [address] 04/30/2024 15:02:11 04/30/2024 18:43:13 Upper respiratory infection 67533106 J06.9 Health Concerns Section Related Observation LastModified by Organization Detai ls LastModified Time None Recorded Concern Status LastModified by Organization Details LastModified Time None Recorded Advance Directives Directive None Recorded Payers Encounter Date Sequence Insurance Name Policy Number Policy Barnes Covered Member ID Branes Member ID Guarantor Name 11/13/2021 1 [facility] ALLIANCE - DOS PRIOR TO 2022 - DUAL ELIGIBLE (MEDICARE REPLACEMENT/ADV ANTAGE - HMO) Gayle Antoine [id number] Gayle Antoine 08/14/2023 1 [facility] CARE ALLIANCE - DOS ON OR AFTER 2022 - DUAL ELIGIBLE - NURSING HOME OPTIONS AND ONE CARE (MEDICARE REPLACEMENT/ADV ANTAGE - HMO) Gayle Antoine [id number] Gayle Antoine 09/12/2023 1 [facility] CARE [employer] - DOS ON OR AFTER 2022 - DUAL ELIGIBLE - NURSING HOME OPTIONS AND ONE CARE (MEDICARE REPLACEMENT/ADV ANTAGE - HMO) Gayle Antoine [id number] Gayle Antoine 04/30/2024 1 [facility] ALLIANCE - DOS ON OR AFTER 2022 - DUAL ELIGIBLE - NURSING HOME OPTIONS AND ONE CARE (MEDICARE REPLACEMENT/ADV ANTAGE - HMO) Gayle Antoine [id number] Gayle Antoine Notes Date Note Type Note Provider Name and Address Organization Details Recorded Time 11/13/2021 text/html [facility] Nursing Assessment: Reason For Request: Cold Symptoms Chief Complaints: Cough, Fever/Chills, Nausea/Vomiting, Syncope/Dizziness/Li ghtheadedness Allergies: Unknown Comments: Member calling in to request an [facility] visit. Member is 11 days s/p [...] BS this week- has free style Adi [facility]- BS 59- 200................. .................... .................... .................... .................... .................... .................... .... Memorial Designer Note: Sent to a call for a [...] of proper Tylenol dosing. Vitals uploaded to [employer]. Lung sounds: clear bilaterally. No drooling or stridor noted. Rapid strep, influenza and COVID test negative. [facility] script to pt's pharmacy for medication to help with cough. Pt advised to use Throat Coat, tea with lemon and a little honey, gargle with warm salt water and follow up with PCP on Monday. Red flags discussed. Pt has no further questions. .................... .................... .................... .................... .................... .................... .................... . Disposition: Fulfilled Pearl Rubio MD [address] [place] [address],[address], [place], [address], [facility] 11/14/2021 11:30:08 08/14/2023 text/html [facility] Nurse Triage [...] .................... .................... .................... .................... .................... .................... . Memorial Designer Note From Greg Denny: Pt reports 3 [...] L IV and azithromycin 500 mg PO. [facility] to send mucinex and azithromycin to pharmacy. Pt instructed to f/u with PCP tomorrow and to seek emergent medical care for new or worsening sx, which are reviewed with her. .................... .................... .................... .................... .................... .................... .................... . Disposition: Fulfilled Leobardo Huff MD [address] [facility],[address], [place], [address], [employer] 08/14/2023 15:47:00 09/12/2023 text/html [facility] Nurse Triage [...] but gave herself insulin Leobardo Huff MD [address] [facility],[address], [place], [address], [facility] 09/12/2023 11:45:05 04/30/2024 text/html [facility] Nurse Triage Notes (Marjorie Recinos): Reason For Request: URI Chief Complaints: Pain, Chest Pain, Cough PMH: Diabetes, Hypertension Allergies: Egg Comments: Head Lineman verified the member's name//address and phone number. [...] s/s and seek emergency treatment if needed Memorial Designer Organization Information for Greg Denny Business Legal Name: [facility] Transportation Address: [address] [place] [address], District Loss Prevention Manager: Guanaco Sanchez MD CLIA No.: [id number] Memorial Designer POC Test Results from Greg Denny Rapid COVID antigen (14:39:48) COVID: - Rapid influenza antigen (14:39:49) Flu: - .................... .................... .................... .................... .................... .................... .................... . Memorial Designer Note From Greg Denny: Pt reports three days of body aches, fever and cough producing green sputum. Pt reports fever of 101 this morning. Pt using tylenol and ibuprofen to treat the fever and body aches. Pt denies SOB, GUTIERREZ, FUKN, dizziness, n/v/d. Allergy to egg. Pt is [...] . Disposition: Fulfilled Lavern Arriaga MD [address] [facility],[address], [place], [address], [employer] 04/30/2024 15:10:17 OBGyn Episode No OBEpisode recorded.
--- OUTSIDE RECORDS SUMMARY | 2024-11-13 12:46 | XMS_ITS | Patient Health Record ---
[facility] Organization [facility] Address [address] [place] [address] Care Team Providers Care Client Service Administrator Name Role Phone Presley Perez Primary Care Provider Darrion Patel Unavailable [phone] Allergies Allergen (clinical drug ingredient) Drug/Non Drug [...] Polyneuropathy due to diabetes mellitus type I ([id number]) Type 1 diabetes mellitus with diabetic polyneuropathy (E10.42) Active confirmed Plan Of Treatment Pending Test Test Name Order Date X ray : Foot, left 3V 07/08/2022 X ray : Foot, right 3V 07/08/2022 Insurance Providers Payer Name Payer Address Payer Phone Subscriber Number Group Number Insured Name Patient Relationship to Insured Coverage Start Date Coverage End Date [facility] [employer] Claims [address] [place] [phone] [id number] Gayle Antoine Self - patient is the insured Medical (General) History Medical History History ICD Code anemia Anxiety Back,Hip,and Knee pain CAD (Cholesterol) Cataracts Depression Diabetic Gall bladder problems Osteoporosis Reflux ( GERD) Chicken pox Surgical History Surgery Date(Month/Year) gall bladder 1995
--- OUTSIDE RECORDS SUMMARY | 2024-11-13 12:46 | XMS_ITS | Clinical Summary ---
Author Organization [facility] Address [address] [place] [address] Phone Care Team Providers Care Contact Lens Blocker And Cutter Name Role Phone Presley Perez MD Primary Care Provider [phone] Allergies Active Allergy Reactions Criticality Noted Date Comments Amoxicillin Hives Medium 08/24/2024 Nutritional Supplement-Fiber Nausea And Vomiting Medium 08/24/2024 Lisinopril Angioedema High 08/25/2024 Medications atorvastatin (LIPITOR) 20 mg tablet Take 1 tablet (20 mg total) by mouth at bedtime. 05/18/2023 Active cholecalciferol (VITAMIN D-3) 50 mcg (2,000 unit) capsule Take 1 capsule (2,000 Units total) by mouth 1 (one) time each day. 05/18/2023 Active escitalopram (LEXAPRO) 20 mg tablet Take 1 tablet (20 mg total) by mouth 1 (one) time each day. 05/18/2023 Active gabapentin (NEURONTIN) 300 mg capsule Take 1 capsule (300 mg total) by mouth 2 (two) times a day. 05/18/2023 Active Lantus Solostar U-100 Insulin 100 unit/mL (3 mL) injection pen Inject 24 Units under the skin at bedtime. 08/25/2023 Active NovoLOG Flexpen U-100 Insulin 100 unit/mL (3 mL) injection pen Inject 0-10 Units under the skin 3 (three) times a day before meals. 08/25/2023 Active metFORMIN (GLUCOPHAGE) 1,000 mg tablet Take 1 tablet (1,000 mg total) by mouth 2 (two) times a day with meals. 05/18/2023 Active EPINEPHrine (EPIPEN) 0.3 mg/0.3 mL injection Inject 0.3 mL (0.3 mg total) into the thigh if needed for anaphylaxis. Call 911 after use. 1 each 08/25/2024 Active Active Problems Problem Noted Date Diagnosed Date Angioedema 08/24/2024 Encounters Date Type Department Care Team Description 08/24/2024 7:04 PM EST - 08/25/2024 11:39 AM EST Hospital Encounter [facility] Emergency [address] [place] [address] Mariaelena Ya DO Jones, Christopher, MD Kela, Kashyap Devendrabhai, MD Angioedema, initial encounter (Primary Dx) Discharge Disposition: Home or Self Care from Last 3 Months Medical History Medical History Date Comments DM (diabetes mellitus) ([facility] V24, [facility] V28 ) HTN (hypertension) Social History Tobacco Use Types [...] Vaccines (1 of 2) 2005 RSV Immunization Adult Patients (1 - Risk 60-74 years 1-dose series) 2015 Cholesterol Screening (Lipid Panel) 08/11/2023 Colorectal Cancer Screening: Colonoscopy 08/11/2023 Depression Screening 08/11/2023 Falls Risk Assessment 08/11/2023 Hepatitis C Screening 08/11/2023 Medicare Annual Wellness Visit 08/11/2023 Osteoporosis Screening (Bone Density Screening) 08/11/2023 Social Influencers of Health Screening 08/11/2023 COVID-19 Vaccine ( - 2023-2 5 season) 2024 Diabetes: Annual Urine Albumin-Creatinine Ratio (uACR) 08/24/2024 Diabetes: Blood Sugar Contro l Test (HGBA1C) 08/24/2024 08/25/2023 Influenza Vaccine (Season Ended) 2025 Diabetes: Annual GFR (Glomerular Filtration Rate) 08/25/2025 [...] age to complete this topic Meningococcal B Vaccine Aged Out No l onger eligible based on patient's age to complete [...] of3 resultswithin the time period is included. [facility] Signature Glucose POCT 306(H) 70 - 100 mg/dL 08/25/2024 10:46 AM EST [facility] Blood Capillary blood specimen / Unknown 08/25/2024 10:45 AM EST 08/25/2024 10:47 AM EST Abdi Raymundo MD LAB POINT O F CARE TEST DOCKED DEVICE UNSOLICITED RESULTS Final Result [facility] [address] [place] [address], [place] [phone] * (ABNORMAL) CBC auto differential (08/25/2024 5:12 AM EST) WBC 9.4 4.8 - 10.8 K/mcL LAB HEMETOLOGY METHOD 08/25/2024 7:32 AM [facility] RBC 3.60(L) 3.80 - 4.80 M/mcL LAB HEMETOLOGY METHOD 08/25/2024 7:32 AM [facility] Hemoglobin 10.5(L) 11.5 - 16.0 g/dL LAB HEMETOLOGY METHOD 08/25/2024 7:32 AM [facility] Hematocrit 33.1(L) 35.0 - 47.0 % LAB HEMETOLOGY METHOD 08/25/2024 7:32 AM [facility] MCV 93.2 79.0 - 98.0 FL LAB HEMETOLOGY METHOD 08/25/2024 7:32 AM [facility] MCH 29.6 27.0 - 32.0 pcg LAB HEMETOLOGY METHOD 08/25/2024 7:32 AM [facility] MCHC 31.7(L) 32.0 - 37.0 g/dL LAB HEMETOLOGY METHOD 08/25/2024 7:32 AM [facility] RDW 13.2 11.0 - 15.0 % LAB HEMETOLOGY METHOD 08/25/2024 7:32 AM [facility] Platelets 409(H) 130 - 400 K/mcL LAB HEMETOLOGY METHOD 08/25/2024 7:32 AM [facility] MPV 10.4 7.0 - 11.0 FL LAB HEMETOLOGY METHOD 08/25/2024 7:32 AM [facility] NRBC 0.0 <1.0 % LAB HEMETOLOGY METHOD 08/25/2024 7:32 AM [facility] NRBC Absolute 0.00 <0.10 K/mcL LAB HEMETOLOGY METHOD 08/25/2024 7:32 AM [facility] Neutrophils Relative 83.9 % LAB HEMETOLOGY METHOD 08/25/2024 7:32 AM [facility] Lymphocytes Relative 14.2 % LAB HEMETOLOGY METHOD 08/25/2024 7:32 AM [facility] Monocytes Relative 1.3 % LAB HEMETOLOGY METHOD 08/25/2024 7:32 AM [facility] Eosinophils Relative 0.0 % LAB HEMETOLOGY METHOD 08/25/2024 7:32 AM [facility] Basophils Relative 0.1 % LAB HEMETOLOGY METHOD 08/25/2024 7:32 AM [facility] Immature Granulocytes Relative 0.5 % LAB HEMETOLOGY METHOD 08/25/2024 7:32 AM [facility] Neutrophils Absolute 7.91(H) 1.50 - 7.00 K/mcL LAB HEMETOLOGY METHOD 08/25/2024 7:32 AM [facility] Lymphocytes Absolute 1.34 1.00 - 5.00 K/mcL LAB HEMETOLOGY METHOD 08/25/2024 7:32 AM [facility] Monocytes Absolute 0.12(L) 0.20 - 1.00 K/mcL LAB HEMETOLOGY METHOD 08/25/2024 7:32 AM [facility] Eosinophils Absolute 0.00 0.00 - 0.50 K/mcL LAB HEMETOLOGY METHOD 08/25/2024 7:32 AM EST [facility] Basophils Absolute 0.01 0.00 - 0.20 K/mcL LAB HEMETOLOGY METHOD 08/25/2024 7:32 AM EST [facility] Immature Granulocytes Absolute 0.05(H) 0.00 - 0.03 K/mcL LAB HEMETOLOGY METHOD 08/25/2024 7:32 AM [facility] Blood Venous blood specimen / Unknown Venipuncture / Unknown 08/25/2024 5:12 AM EST 08/25/2024 7:05 AM EST us Jemal Padilla MD LAB BLOOD ORDERABLES Final Result [facility] [address] [place] [address], [place] [phone] * (ABNORMAL) Basic metabolic panel (08/25/2024 5:12 AM EST) Only the most recent of2 resultswithin the time period is included. Sodium 137 133 - 145 mmol/L LAB CHEMISTRY METHOD 08/25/2024 7:51 AM [facility] Potassium 4.6 3.5 - 5.5 mmol/L LAB CHEMISTRY METHOD 08/25/2024 7:51 AM [facility] Chloride 108 96 - 110 mmol/L LAB CHEMISTRY METHOD 08/25/2024 7:51 AM [facility] CO2 24 21 - 32 mmol/L LAB CHEMISTRY METHOD 08/25/2024 7:51 AM [facility] Anion Gap 5 3 - 11 LAB CHEMISTRY METHOD 08/25/2024 7:51 AM [facility] Glucose 288(H) 70 - 100 mg/dL LAB CHEMISTRY METHOD 08/25/2024 7:51 AM [facility] BUN 19 5 - 25 mg/dL LAB CHEMISTRY METHOD 08/25/2024 7:51 AM [facility] Creatinine 0.79 0.50 - 1.10 mg/dL LAB CHEMISTRY METHOD 08/25/2024 7:51 AM EST [facility] eGFR 81 >=60 mL/min/1. 73m2 LAB CHEMISTRY METHOD 08/25/2024 7:51 AM EST [facility] Comment:Calculation based on the??Chronic Kidney Disease Epidemiology Collaboration (CKD-EPI) equation refit??without adjustment for race. BUN/Creatinine Ratio 24.1 LAB CHEMISTRY METHOD 08/25/2024 7:51 AM EST [facility] Calcium 8.8 8.5 - 10.5 mg/dL LAB CHEMISTRY METHOD 08/25/2024 7:51 AM EST [facility] Blood Venous blood specimen / Unknown Venipuncture / Unknown 08/25/2024 5:12 AM EST 08/25/2024 7:07 AM EST us Jemal Padilla MD LAB BLOOD ORDERABLES Final Result [facility] [address] [place] [address], [place] [phone] * Transfuse Plasma (08/25/2024 4:04 AM EST) Only the most recent of2 resultswithin the time period is included. us Jemal Padilla MD BLOOD TRANSFUSION ORDERABLE S Final Result * (ABNORMAL) Tryptase (08/24/2024 10:00 PM EST) Tryptase 24(H) <11 ug/L 08/28/2024 12:29 PM EST [facility] Comment: Test performed at [facility], [address], [place], [place] ??[address] ? [phone] Kaylan Rm MD, PhD - Fiber Heel Piece Shaper Blood Venous blood specimen / Unknown Venipuncture / Unknown 08/24/2024 10:00 PM EST 08/24/2024 10:06 PM EST us Jemal Padilla MD LAB BLOOD ORDERABLES Final Result JEREMIAH Melgar [address] [place] [address] * (ABNORMAL) CBC (08/24/2024 7:42 PM EST) [facility] Signature WBC 10.5 4.8 - 10.8 K/mcL LAB HEMETOLOGY METHOD 08/24/2024 8:42 PM [facility] RBC 3.40(L) 3.80 - 4.80 M/mcL LAB HEMETOLOGY METHOD 08/24/2024 8:42 PM [facility] Hemoglobin 10.3(L) 11.5 - 16.0 g/dL LAB HEMETOLOGY METHOD 08/24/2024 8:42 PM [facility] Hematocrit 32.1(L) 35.0 - 47.0 % LAB HEMETOLOGY METHOD 08/24/2024 8:42 PM [facility] MCV 94.4 79.0 - 98.0 FL LAB HEMETOLOGY METHOD 08/24/2024 8:42 PM [facility] MCH 30.3 27.0 - 32.0 pcg LAB HEMETOLOGY METHOD 08/24/2024 8:42 PM [facility] MCHC 32.1 32.0 - 37.0 g/dL LAB HEMETOLOGY METHOD 08/24/2024 8:42 PM [facility] RDW 13.2 11.0 - 15.0 % LAB HEMETOLOGY METHOD 08/24/2024 8:42 PM [facility] Platelets 434(H) 130 - 400 K/mcL LAB HEMETOLOGY METHOD 08/24/2024 8:42 PM [facility] MPV 10.3 7.0 - 11.0 FL LAB HEMETOLOGY METHOD 08/24/2024 8:42 PM [facility] NRBC 0.0 <1.0 % LAB HEMETOLOGY METHOD 08/24/2024 8:42 PM EST [facility] NRBC Absolute 0.00 <0.10 K/mcL LAB HEMETOLOGY METHOD 08/24/2024 8:42 PM EST [facility] Blood Venous blood specimen / Unknown Venipuncture / Unknown 08/24/2024 7:42 PM EST 08/24/2024 8:34 PM EST Oscar BLOOM LAB BLOOD ORDERABLES Final R esult [facility] [address] [place] [address], [place] [phone] * Green LI heparin tube (08/24/2024 7:41 PM EST) Extra Tube Hold for add-ons. 08/24/2024 10:01 PM EST [facility] Comment:Auto resulted. Blood Venous blood specimen / Unknown 08/24/2024 7:41 PM EST 08/24/2024 8:33 PM EST Mariaelena Ya DO LAB BLOOD ORDERABLES Kiki l Result Performing Organization Address City/[facility]/ZIP Co de Phone Number [facility] [address] [place] [address], [place] [phone] * Type and screen (08/24/2024 7:41 PM EST) ABO Group A 08/24/2024 9:19 PM EST [facility] Rh Type Positive 08/24/2024 9:19 PM EST [facility] Antibody Screen Negative 08/24/2024 9:19 PM EST [facility] Blood Venous blood specimen / Unknown Venipuncture / Unknown 08/24/2024 7:41 PM EST 08/24/2024 8:32 PM EST Oscar BLOOM LAB BLOOD BANK TEST ORDERABL ES Final Result [facility] [address] [place] [address], * Prepare Plasma: 2 Units (08/24/2024 7:37 PM EST) Product Code [id number] 08/24/2024 10:24 PM EST [facility] Unit Number [id number] 08/24/19 10:24 PM [facility] Dispense Status Transfused 08/24/2024 10:24 PM [facility] Unit ABO Rh APOS 08/24/2024 10:24 PM EST [facility] Unit Expiration Date Time [id number] 08/24/2024 10:24 PM [facility] Unit Blood Type 6200 08/24/2024 10:24 PM [facility] Product Code [id number] 08/25/2024 12:32 AM EST [facility] Unit Number [id number] 08/25/19 12:32 AM [facility] Dispense Status Transfused 08/25/2024 12:32 AM [facility] Unit ABO Rh APOS 08/25/2024 12:32 AM [facility] Unit Expiration Date Time [id number] 08/25/2024 12:32 AM [facility] Unit Blood Type 6200 08/25/2024 12:32 AM [facility] Blood Venous blood specimen / Unknown 08/24/2024 7:37 PM EST us Oscar BLOOM BLOOD BANK PRODUCT ORDERABLE S Final Result [facility] [address] [place] [address], [place] [phone] from Last 3 Months Insurance [facility] MEDICARE Member Subscriber Plan / Payer (Ef fective 2020-Present) Name:AntoineZaria amadorn Relation to Subscriber:Self Name:AntoineZaria amadorn Payer ID:[id number] Group ID:[id number] Type:Not on file Address: [address] [id number] Advance Directives * Full Code - Default [...] currently active code status orders. Care Teams Contact Lens Blocker And Cutter Relationship Specialty Start Date End Date Presley Perez MD [address] [place] [address] [address] [facility] [place] [address] PCP - General 05/15/23
== END 2024-11-13 11:39 | disposition home or self-care (01) ==
LOC: HO.HMCH 11:09
PROVIDERS: PCP Internal Medicine; Visit Provider Internal Medicine
DX: E11.65 Type 2 diabetes mellitus with hyperglycemia (principal); E78.5 Hyperlipidemia, unspecified; K21.00 Gastro-esophageal reflux disease with esophagitis, without bleeding; F41.1 Generalized anxiety disorder; M25.872 Other specified joint disorders, left ankle and foot; T78.3XXA Angioneurotic edema, initial encounter; Z79.4 Long term (current) use of insulin

== ENCOUNTER 2024-11-13 11:45 | Outpatient (REF) | payer OTHER, SELFPAY ==
--- NOTE | ~2024-11-13 | MM_ITS ---
EXAMINATION: MM SCREENING DIGITAL BREAST TOMOSYNTHESIS, BILATERAL CLINICAL INFORMATION: Screening. Asymptomatic. COMPARISON: Mammography: Comparison is made with available priors TECHNIQUE: Digital breast mammography with tomosynthesis is performed in both the craniocaudal and mediolateral oblique views along with computer-aided detection (CAD). FINDINGS: There are scattered areas of fibroglandular density (ACR BI-RADS breast composition Category b). Focal asymmetry upper central right breast posterior depth is stable. There are no significant masses, abnormal calcifications, or other abnormalities. MM/MM tomosynthesis screening BI IMPRESSION: No mammographic evidence of malignancy. ASSESSMENT: BI-RADS BI-RADS 2 - Benign Findings RECOMMENDATION: Routine annual mammography screening. 1 year F/U This examination should not preclude the clinical evaluation of a suspicious palpable abnormality. This patient's information was entered into a reminder system with a target due date for their next mammogram. Electronically signed by: Angie Cobian DO 11/18/2024 05:30 PM EDT
--- OUTSIDE RECORDS SUMMARY | 2024-11-13 13:17 | XMS_ITS | Clinical Summary ---
Author Organization [facility] Address [address] [place] [address] Phone Care Team Providers Care Roll Edge Machine Operator Name Role Phone Presley Perez MD Primary Care Provider [phone] Allergies Active Allergy Reactions Criticality Noted Date [...] - 08/25/2024 11:39 AM EST Hospital Encounter [facility] Emergency [address] [place] [address] Mariaelena Ya DO Jones, Christopher, MD Kela, Kashyap Devendrabhai, MD Angioedema, initial encounter (Primary Dx) Discharge Disposition: Home or Self Care from Last 3 Months Medical History Medical History Date Comments DM (diabetes mellitus) ([facility] V24, [facility] V28 ) HTN (hypertension) Social History Tobacco [...] of3 resultswithin the time period is included. [facility] Signature Glucose POCT 306(H) 70 - 100 mg/dL 08/25/2024 10:46 AM EST [facility] Blood Capillary blood specimen / Unknown 08/25/2024 10:45 AM EST 08/25/2024 10:47 AM EST Abdi Raymundo MD LAB POINT O F CARE TEST DOCKED DEVICE UNSOLICITED RESULTS Final Result [facility] [address] [place] [address], [place] [phone] * (ABNORMAL) CBC auto differential (08/25/2024 5:12 AM EST) WBC 9.4 4.8 - 10.8 K/mcL LAB HEMETOLOGY METHOD 08/25/2024 7:32 AM [facility] RBC 3.60(L) 3.80 - 4.80 M/mcL LAB HEMETOLOGY METHOD 08/25/2024 7:32 AM [facility] Hemoglobin 10.5(L) 11.5 - 16.0 g/dL LAB HEMETOLOGY METHOD 08/25/2024 7:32 AM [facility] Hematocrit 33.1(L) 35.0 - 47.0 % LAB HEMETOLOGY METHOD 08/25/2024 7:32 AM [facility] MCV 93.2 79.0 - 98.0 FL LAB HEMETOLOGY METHOD 08/25/2024 7:32 AM [facility] MCH 29.6 27.0 - 32.0 pcg LAB HEMETOLOGY METHOD 08/25/2024 7:32 AM [facility] MCHC 31.7(L) 32.0 - 37.0 g/dL LAB HEMETOLOGY METHOD 08/25/2024 7:32 AM [facility] RDW 13.2 11.0 - 15.0 % LAB HEMETOLOGY METHOD 08/25/2024 7:32 AM [facility] Platelets 409(H) 130 - 400 K/mcL LAB HEMETOLOGY METHOD 08/25/2024 7:32 AM [facility] MPV 10.4 7.0 - 11.0 FL LAB HEMETOLOGY METHOD 08/25/2024 7:32 AM [facility] NRBC 0.0 <1.0 % LAB HEMETOLOGY METHOD 08/25/2024 7:32 AM [facility] NRBC Absolute 0.00 <0.10 K/mcL LAB HEMETOLOGY METHOD 08/25/2024 7:32 AM [facility] Neutrophils Relative 83.9 % LAB HEMETOLOGY METHOD 08/25/2024 7:32 AM [facility] Lymphocytes Relative 14.2 % LAB HEMETOLOGY METHOD 08/25/2024 7:32 AM [facility] Monocytes Relative 1.3 % LAB HEMETOLOGY METHOD 08/25/2024 7:32 AM [facility] Eosinophils Relative 0.0 % LAB HEMETOLOGY METHOD 08/25/2024 7:32 AM [facility] Basophils Relative 0.1 % LAB HEMETOLOGY METHOD 08/25/2024 7:32 AM [facility] Immature Granulocytes Relative 0.5 % LAB HEMETOLOGY METHOD 08/25/2024 7:32 AM [facility] Neutrophils Absolute 7.91(H) 1.50 - 7.00 K/mcL LAB HEMETOLOGY METHOD 08/25/2024 7:32 AM [facility] Lymphocytes Absolute 1.34 1.00 - 5.00 K/mcL LAB HEMETOLOGY METHOD 08/25/2024 7:32 AM [facility] Monocytes Absolute 0.12(L) 0.20 - 1.00 K/mcL LAB HEMETOLOGY METHOD 08/25/2024 7:32 AM [facility] Eosinophils Absolute 0.00 0.00 - 0.50 K/mcL LAB HEMETOLOGY METHOD 08/25/2024 7:32 AM EST [facility] Basophils Absolute 0.01 0.00 - 0.20 K/mcL LAB HEMETOLOGY METHOD 08/25/2024 7:32 AM EST [facility] Immature Granulocytes Absolute 0.05(H) 0.00 - 0.03 K/mcL LAB HEMETOLOGY METHOD 08/25/2024 7:32 AM [facility] Blood Venous blood specimen / Unknown Venipuncture / Unknown 08/25/2024 5:12 AM EST 08/25/2024 7:05 AM EST us Jemal Padilla MD LAB BLOOD ORDERABLES Final Result [facility] [address] [place] [address], [place] [phone] * (ABNORMAL) Basic metabolic panel (08/25/2024 5:12 AM EST) Only the most recent of2 resultswithin the time period is included. Sodium 137 133 - 145 mmol/L LAB CHEMISTRY METHOD 08/25/2024 7:51 AM [facility] Potassium 4.6 3.5 - 5.5 mmol/L LAB CHEMISTRY METHOD 08/25/2024 7:51 AM [facility] Chloride 108 96 - 110 mmol/L LAB CHEMISTRY METHOD 08/25/2024 7:51 AM [facility] CO2 24 21 - 32 mmol/L LAB CHEMISTRY METHOD 08/25/2024 7:51 AM [facility] Anion Gap 5 3 - 11 LAB CHEMISTRY METHOD 08/25/2024 7:51 AM [facility] Glucose 288(H) 70 - 100 mg/dL LAB CHEMISTRY METHOD 08/25/2024 7:51 AM [facility] BUN 19 5 - 25 mg/dL LAB CHEMISTRY METHOD 08/25/2024 7:51 AM [facility] Creatinine 0.79 0.50 - 1.10 mg/dL LAB CHEMISTRY METHOD 08/25/2024 7:51 AM EST [facility] eGFR 81 >=60 mL/min/1. 73m2 LAB CHEMISTRY METHOD 08/25/2024 7:51 AM EST [facility] Comment:Calculation based on the??Chronic Kidney Disease Epidemiology Collaboration (CKD-EPI) equation refit??without adjustment for race. BUN/Creatinine Ratio 24.1 LAB CHEMISTRY METHOD 08/25/2024 7:51 AM EST [facility] Calcium 8.8 8.5 - 10.5 mg/dL LAB CHEMISTRY METHOD 08/25/2024 7:51 AM EST [facility] Blood Venous blood specimen / Unknown Venipuncture / Unknown 08/25/2024 5:12 AM EST 08/25/2024 7:07 AM EST us Jemal Padilla MD LAB BLOOD ORDERABLES Final Result [facility] [address] [place] [address], [place] [phone] * Transfuse Plasma (08/25/2024 4:04 AM EST) Only the most recent of2 resultswithin the time period is included. us Jemal Padilla MD BLOOD TRANSFUSION ORDERABLE S Final Result * (ABNORMAL) Tryptase (08/24/2024 10:00 PM EST) Tryptase 24(H) <11 ug/L 08/28/2024 12:29 PM EST [facility] Comment: Test performed at [facility], [address], [place], [place] ??[address] ? [phone] Kaylan Rm MD, PhD - Circle Edger Blood Venous blood specimen / Unknown Venipuncture / Unknown 08/24/2024 10:00 PM EST 08/24/2024 10:06 PM EST us Jemal Padilla MD LAB BLOOD ORDERABLES Final Result JEREM[facility] Melgar [address] [place] [address] * (ABNORMAL) CBC (08/24/2024 7:42 PM EST) [facility] Signature WBC 10.5 4.8 - 10.8 K/mcL LAB HEMETOLOGY METHOD 08/24/2024 8:42 PM [facility] RBC 3.40(L) 3.80 - 4.80 M/mcL LAB HEMETOLOGY METHOD 08/24/2024 8:42 PM [facility] Hemoglobin 10.3(L) 11.5 - 16.0 g/dL LAB HEMETOLOGY METHOD 08/24/2024 8:42 PM [facility] Hematocrit 32.1(L) 35.0 - 47.0 % LAB HEMETOLOGY METHOD 08/24/2024 8:42 PM [facility] MCV 94.4 79.0 - 98.0 FL LAB HEMETOLOGY METHOD 08/24/2024 8:42 PM [facility] MCH 30.3 27.0 - 32.0 pcg LAB HEMETOLOGY METHOD 08/24/2024 8:42 PM [facility] MCHC 32.1 32.0 - 37.0 g/dL LAB HEMETOLOGY METHOD 08/24/2024 8:42 PM [facility] RDW 13.2 11.0 - 15.0 % LAB HEMETOLOGY METHOD 08/24/2024 8:42 PM [facility] Platelets 434(H) 130 - 400 K/mcL LAB HEMETOLOGY METHOD 08/24/2024 8:42 PM [facility] MPV 10.3 7.0 - 11.0 FL LAB HEMETOLOGY METHOD 08/24/2024 8:42 PM [facility] NRBC 0.0 <1.0 % LAB HEMETOLOGY METHOD 08/24/2024 8:42 PM EST [facility] NRBC Absolute 0.00 <0.10 K/mcL LAB HEMETOLOGY METHOD 08/24/2024 8:42 PM EST [facility] Blood Venous blood specimen / Unknown Venipuncture / Unknown 08/24/2024 7:42 PM EST 08/24/2024 8:34 PM EST Oscar BLOOM LAB BLOOD ORDERABLES Final R esult [facility] [address] [place] [address], [place] [phone] * Green LI heparin tube (08/24/2024 7:41 PM EST) Extra Tube Hold for add-ons. 08/24/2024 10:01 PM EST [facility] Comment:Auto resulted. Blood Venous blood specimen / Unknown 08/24/2024 7:41 PM EST 08/24/2024 8:33 PM EST Mariaelena Ya DO LAB BLOOD ORDERABLES Kiki l Result Performing Organization Address City/[facility]/ZIP Co de Phone Number [facility] [address] [place] [address], [place] [phone] * Type and screen (08/24/2024 7:41 PM EST) ABO Group A 08/24/2024 9:19 PM EST [facility] Rh Type Positive 08/24/2024 9:19 PM EST [facility] Antibody Screen Negative 08/24/2024 9:19 PM EST [facility] Blood Venous blood specimen / Unknown Venipuncture / Unknown 08/24/2024 7:41 PM EST 08/24/2024 8:32 PM EST Oscar BLOOM LAB BLOOD BANK TEST ORDERABL ES Final Result [facility] [address] [place] [address], * Prepare Plasma: 2 Units (08/24/2024 7:37 PM EST) Product Code [id number] 08/24/2024 10:24 PM EST [facility] Unit Number [id number] 08/24/19 10:24 PM [facility] Dispense Status Transfused 08/24/2024 10:24 PM [facility] Unit ABO Rh APOS 08/24/2024 10:24 PM EST [facility] Unit Expiration Date Time [id number] 08/24/2024 10:24 PM [facility] Unit Blood Type 6200 08/24/2024 10:24 PM [facility] Product Code [id number] 08/25/2024 12:32 AM EST [facility] Unit Number [id number] 08/25/19 12:32 AM [facility] Dispense Status Transfused 08/25/2024 12:32 AM [facility] Unit ABO Rh APOS 08/25/2024 12:32 AM [facility] Unit Expiration Date Time [id number] 08/25/2024 12:32 AM [facility] Unit Blood Type 6200 08/25/2024 12:32 AM [facility] Blood Venous blood specimen / Unknown 08/24/2024 7:37 PM EST us Oscar BLOOM BLOOD BANK PRODUCT ORDERABLE S Final Result [facility] [address] [place] [address], [place] [phone] from Last 3 Months Insurance [facility] MEDICARE Member Subscriber Plan / Payer (Ef fective 2020-Present) Name:AntoineZaria amadorn Relation to Subscriber:Self Name:AntoineZaria amadorn Payer ID:[id number] Group ID:[id number] Type:Not on file Address: [place] ST[place] [address] [place] [phone] Advance Directives * Full Code - Default [...] currently active code status orders. Care Teams Roll Edge Machine Operator Relationship Specialty Start Date End Date Presley Perez MD [address] [place] [address] [address] [facility] [place] [address] PCP - General 05/15/23
== END 2024-11-13 11:46 | disposition home or self-care (01) ==
LOC: HO.MAMMO 11:45
PROVIDERS: PCP Internal Medicine; Visit Provider Internal Medicine
DX: E11.65 Type 2 diabetes mellitus with hyperglycemia (principal); Z79.4 Long term (current) use of insulin; E78.5 Hyperlipidemia, unspecified; Z12.31 Encounter for screening mammogram for malignant neoplasm of breast; R92.323 Mammographic fibroglandular density, bilateral breasts
CPT/HCPCS: 77063; 77067; 83036; 99212

== ENCOUNTER → 2024-11-13 12:30 | Outpatient (BNV) | payer OTHER, SELFPAY | PROVIDERS: PCP Internal Medicine; Visit Provider Internal Medicine | DX: Z12.31 Encounter for screening mammogram for malignant neoplasm of breast (principal) | CPT/HCPCS: 77063; 77067 ==

== ENCOUNTER 2025-01-02 10:04 | Outpatient (RCR) | payer OTHER, SELFPAY ==
--- NOTE | 2024-11-14 14:01 | MHC.PT.EP ---
[facility] [place] [facility] [place] [facility] [place] [facility] [address] Latha Dietrich [address] [phone] F: [phone] F: [phone] F: [phone] F: [phone] Physical Therapy Plan of Care Date of Evaluation: 11/14/24 Date of Surgery: Diagnosis: LEFT shoulder pain (MD Dx) LEFT shoulder adhesive capsulitis (PT Dx) RS Assessment: Gayle is a pleasant 69 y.o. female who is referred to PT by Dr. Presley Perez MD with Dx of LEFT shoulder pain. PT diagnosis is LEFT shoulder adhesive capsulitis, also with comorbidity of DMT2 and osteoporosis which will impact her healing. Patient impairments include pain with intermittnet radicular sxs L UE, poor, protected postures, limited L shoulder ROM, weakness L shoulder. Patient current functional limitations are Difficulty reaching behind back, dressing, reaching overhead to cabinets, carrying groceries, cleaning, cooking. Patient will benefit from skilled PT to address aforementioned impairments and functional limitations to meet established goals. Frequency and Duration: The patient will be seen 2x/week for 4 weeks Short Term Goals: 2 weeks Patient demonstrates consistency and independence with HEP to self manage symptoms. Skilled Nursing Goals: 4 weeks Patient presents with increased L shoulder flexion 130 degrees to reach overhead to cabinets at home. Patient presents with increased L shoulder ER 50 degrees to be able to reach behind back for dressing. Treatment Plan: Modalities to reduce pain, spasms and effusion. Manual therapy to restore motion and function. Therapeutic exercise to improve strength and flexibility. Neuromuscular re-education for posture and balance. Therapeutic activities to return to functional activities of daily living. Electronically signed by: Todd Macedo, PT, DPT Please sign and return to therapist. Thank you for your referral.
--- NOTE | 2025-01-13 15:44 | MHC.PT.DC ---
[facility] [place] Office [place] Office [place] Office [address] Latha Dietrich 140 [facility] [place] [phone] F: [phone] F: [phone] F: [phone] F: [phone] Physical Therapy Discharge Report Diagnosis: LEFT shoulder pain (MD Dx) LEFT shoulder adhesive capsulitis (PT Dx) RS Date of Surgery: Date of Evaluation: 11/14/24 Date of Discharge: 01/13/25 Treatments to Date: 7 Cancellations to Date: 6 No Shows to Date: 0 Discharge Status: Improved Function Independent with HEP Patient Elected to Stop Discharge Summary: Gayle did well with PT interventions, she was consistent with HEP and made great progress with improved ROM in her LEFT shoulder, improved posture and reduction in familiar pain and symptoms. This positively improved her ability to perform ADLs with more independence. She called to cancel her last session, reporting she is feeling better and wants to discontinue PT. Electronically signed by: Todd Macedo, PT, DPT Please sign and return to therapist. Thank you for your referral.
== END 2025-01-13 15:44 | disposition home or self-care (01) ==
LOC: HO.PT 10:04
PROVIDERS: PCP Internal Medicine; Visit Provider Internal Medicine
DX: M25.512 Pain in left shoulder (principal)
CPT/HCPCS: 97110; 97140; 97161

== ENCOUNTER 2025-02-26 14:04 | Outpatient (AMB) | payer OTHER, SELFPAY ==
--- NOTE | 2025-02-26 14:07 | A.OFFPC_ITS ---
Vital Signs 02/26/25 14:08 Height 5 ft 2 in Weight 144 lb 2 oz BMI 26.4 BP 122/66 Blood Pressure Location Lt brachial Position Sitting Pulse 83 Pulse Source Pulse Oximeter Temp 97.3 F Temp Source Temporal Artery Scan Pulse Oximetry (%) 97 Oxygen Delivery Method Room Air Intake Visit Reasons: DM Intake Note: Patient is here to follow up on DM. Sequins Spooler Required: No Food Packer: Not Required per policy Accompanied by: Self / Same As Patient Allergies amoxicillin Allergy (Intermediate, Verified 02/26/25 14:08) Rash egg Allergy (Mild, Verified 02/26/25 14:08) Nausea and Vomiting lisinopril Adverse Reaction (Severe, Verified 02/26/25 14:08) Angioedema doxycycline Adverse Reaction (Mild, Verified 02/26/25 14:08) Rash prednisone Adverse Reaction (Mild, Uncoded 02/26/25 14:08) Headaches Medication List - Last Reconciled 02/26/25 by Presley Perez MD atorvastatin 20 mg PO BEDTIME [Bath mat As directed] BD Wendy 2nd Gen Pen Needle (pen needle, diabetic) 5 times a day NS blood pressure monitor (Blood Pressure Kit) As directed blood sugar diagnostic (FreeStyle Lite Strips) As directed three times a day blood-glucose meter (FreeStyle Lite Meter kit) As directed cholecalciferol (vitamin D3) 50 mcg PO DAILY 90 days [DIABETIC SHOEs As directed] escitalopram oxalate (Lexapro) 20 mg PO DAILY 90 days famotidine 20 mg PO BID fenofibrate nanocrystallized 145 mg PO DAILY 90 days flash glucose sensor (FreeStyle Adi 14 Day Sensor kit) As directed gabapentin 300 mg PO BID 90 days insulin glargine (Lantus Solostar U-100 Insulin) 26 units subcut DAILY insulin lispro (Humalog KwikPen (U-100) Insulin) subcutaneously Inject 4 times a day according to sliding scale 2-10 units; or as directed less than 60 drink orange juice, 61-150 no coverage, 151-230 2 units, 231 to 280 4 units, 281-330 6 units, 331-380 8 units, > 380 10 units ketorolac 0.5% 0 drps ophthalmic (eye) lancets As directed metformin 1,000 mg PO BID 30 days mupirocin 2% 1 appl topical BID pen needle, diabetic (Unifine Pentips) USE FOUR TIMES A DAY DIRECTED (BULK) sitagliptin phosphate (Januvia) 100 mg PO DAILY 90 days triamcinolone acetonide 0.5% 1 appl topical BID Tobacco use date assessed: 02/26/25 Fall risk assessment: No Falls in past year Last assessed Fall Risk: 02/26/25 Dental Screening Dental Screen Date: 08/07/24 [facility] Medical History Cough RUQ abdominal pain Plantar fasciitis, bilateral Osteoporosis Breast calcifications Breast cancer screening by mammogram Pancreatitis Breast calcification, left Tobacco abuse Type 2 diabetes mellitus with hyperglycemia, with long-term current use of insulin Hypertriglyceridemia 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 Hyperlipidemia LDL goal <100 Diabetic neuropathy Esophagitis Anemia Surgical History History of cataract surgery Hx of mammogram H/O esophagogastroduodenoscopy History of colonoscopy Hx of cholecystectomy Family History Father Diabetes Mother Diabetes Social History Household Members: None Housing: Apartment Alcohol intake: never Patient Tobacco Use Status: Former Tobacco user Tobacco use type: Cigarette Cigarettes Per Day: 5 Years Smoked: quit 2021 e-Cigarette/Vaping Use: Never Used Second Hand Smoke Exposure: Yes service: No Current occupational status: retired Current occupation: left handed Cognitive needs: No Hearing needs: No Vision needs: Yes Questionnaire Thrive Questionnaire Date Thrive assessed: 09/02/24 I am a: Patient What is your living situation today?: I have a steady place to live Within the past 12 months, did the food you bought not last and you didn't have the money to get more?: Never true Within the past 12 months, did you worry whether your food would run out before you got money to buy more?: Never true Do you have trouble paying for medicines?: Yes Do you have trouble getting transportation to medical appointments?: No Do you have trouble paying your heating and electricity bill?: No Do you have trouble taking care of your child, family member or friend?: No Do you have trouble with day-to-day activities such as bathing, preparing meals, shopping, managing finances, etc.?: No Are you currently unemployed and looking for a job?: No Are you interested in more education?: Yes Please select the resources that you would like help with: Education Currently or been in a relationship where the following occur: I choose not to answer THRIVE Score: 0 WILLA-7 AMB Questionnaire WILLA-7 Date WILLA - 7 assessed: 08/07/24 Source: Developed by Drs. Keith Morrison, Alka Hawkins, Sonny Geiger and colleagues, with an educational mary from [employer]. Physical exam (Primary Care) Vital Signs: Last Vital Signs Temp 97.3 F 02/26/25 14:08 Pulse 83 02/26/25 14:08 BP 122/66 02/26/25 14:08 Pulse Ox 97 02/26/25 14:08 Oxygen Delivery Method Room Air 02/26/25 14:08 BMI result Body Mass Index 26.4 Tobacco/Smoking Status: Tobacco use Status Tobacco use date assessed 02/26/25 02/26/25 14:34 Patient Tobacco Use Status Former Tobacco user 02/26/25 14:34 Tobacco use type Cigarette 02/26/25 14:34 e-Cigarette/Vaping Use Never Used 02/26/25 14:34 Thrive Assessment: Date of Thrive Assessment Date Thrive assessed 09/02/24 02/26/25 14:34 Currently or been in a relationship where the following occur: I choose not to answer Const General: alert; No acute distress Eyes Conjunctivae: conjunctivae normal Resp Auscultation: clear to auscultation bilaterally Cardio Rate: regular rate Rhythm: regular rhythm GI Inspection: Yes normal to inspection Extrem General: Yes normal to inspection and No edema Results AMB Hemoglobin A1c AMB Hemoglobin A1c 7.5 % Last Edit by SHASHANK Britton on 02/26/25 14:45 Results Reviewed Results Reviewed: Laboratory Last Values Hgb A1c (Clinic) 7.5 % (4.0-6.0) H 02/26/25 14:07 Coding Level of Care Code Est Pt Level 4 (60652) Complex EM visit Add On G2211 Diagnoses Type 2 diabetes mellitus with hyperglycemia, with long-term current use of insulin E11.65; Z79.4 Hyperlipidemia LDL goal <100 E78.5 GERD with esophagitis K21.00 Generalized anxiety disorder F41.1 Assessment & Plan Assessment & Plan (1) Type 2 diabetes mellitus with hyperglycemia, with long-term current use of insulin: Comment: Rolf Blevins 2021, 08/2023 Code(s): E11.65 - Type 2 diabetes mellitus with hyperglycemia; Z79.4 - M[facility] (current) use of insulin Category: Medical Plan: Decrease the amount of carbohydrate intake, pasta, bread, rice and potatoes are all sugar and that is aside from all the sweet stuff, remember that fruits are good but they are Sweet also. Hemoglobin A1c goal of less than 7.0. Patient is on insulin Lantus 27 units once a day lispro sliding scale metformin a 1000 mg twice a day Januvia at 100 mg once a day (2) Hyperlipidemia LDL goal <100: Comment: Dr. Blevins Code(s): E78.5 - Hyperlipidemia, unspecified Category: Medical Plan: Avoid fried foods, chicken skin, eggs, butter margarine, pastries and meat. Be it pork or beef they have a lot of cholesterol LDL goal of less than 100 and triglyceride of less than 150 patient is on atorvastatin 20 mg once a day (3) GERD with esophagitis: Code(s): K21.00 - Gastro-esophageal reflux disease with esophagitis, without bleeding Category: Medical Plan: Avoid the foods that causes that usually spicy foods, tomato products, juices, coffee, soda and foods that your sensitive to. After eating do not lie down, allow 3-4 hours before in lie down. And keep the head of bed above 30 degrees to avoid the acid from going up. (4) Generalized anxiety disorder: Comment: decline counselling 01/2022 Code(s): F41.1 - Generalized anxiety disorder Category: Medical Plan: Continue with present medication on Lexapro gabapentin Plan History of Present Illness The patient is a 69-year-old female presenting for a follow-up visit to manage her chronic conditions and review her current health status. She has a history of diabetes mellitus, with her most recent hemoglobin A1c recorded at 7.5, indicating suboptimal control. Her diabetes management includes insulin Lantus, lispro sliding scale, metformin, and Januvia, with a goal to reduce her A1c below 7.0. Dietary habits include occasional consumption of candy, which may contribute to elevated glucose levels. The patient also has hypercholesterolemia, with her last LDL cholesterol level at 50 mg/dL, managed with atorvastatin. Her cholesterol management goal is to maintain LDL below 100 mg/dL and triglycerides below 150 mg/dL. She has been diagnosed with osteopenia, with a bone density test conducted in September 2023. The patient experiences generalized anxiety disorder, managed with Lexapro. She reports symptoms of gastroesophageal reflux disease, currently managed with famotidine, although she experiences abdominal discomfort described as a ball sensation. A referral to a finishing frame runner and further testing have been planned to investigate these symptoms. The patient has a history of migraines, for which she has been prescribed Imitrex, though she reports infrequent use. Preventative care measures include up-to-date mammogram and colonoscopy screenings. Health Maintenance - Mammogram: Up to date - Colonoscopy: Up to date - Dietary advice: Reduce candy consumption to manage blood glucose levels - Exercise recommendation: Engage in regular physical activity despite weather conditions Social History - Exercise: Currently not engaging in regular exercise due to hot weather, advis ed to find alternatives such as walking in a mall - Dietary habits: Consumes candy occasionally, advised to limit intake Review of Systems - Gastrointestinal: Reports abdominal discomfort described as a ball sensation, denies nausea - Neurological: Reports infrequent use of Imitrex for migraines - Endocrine: Reports elevated blood glucose levels, occasional candy consumption Physical Exam - Cardiovascular: Heart auscultation performed, regular rhythm noted - Respiratory: Lung auscultation performed, clear breath sounds - Abdominal: Palpation performed, tenderness noted in the stomach area Results - Labs: Hemoglobin A1c 7.5, LDL cholesterol 50 mg/dL Plan The management plan for diabetes includes maintaining the current regimen of insulin Lantus, lispro sliding scale, metformin, and Januvia, with a goal to reduce the hemoglobin A1c below 7.0. Dietary modifications are advised, particularly reducing candy intake to help manage blood glucose levels. For hypercholesterolemia, the patient will continue atorvastatin with the goal of maintaining LDL cholesterol below 100 mg/dL and triglycerides below 150 mg/dL. A referral to a finishing frame runner is planned to further evaluate the symptoms of gastroesophageal reflux disease, and a test involving drinking a solution and taking x-rays will be conducted to assess the stomach condition. Preventative care measures include ensuring mammogram and colonoscopy screenings remain up to date. The patient is encouraged to engage in regular physical activity, with suggestions to find alternatives such as walking in a mall if outdoor conditions are unfavorable. Patient was informed and verbally consented to the use of an ambient scribe for clinic note documentation during this visit. Discussion Notes During the visit, I discussed the importance of managing blood glucose levels to prevent complications such as vision impairment and cardiovascular issues. We reviewed the current diabetes management plan and emphasized dietary changes, particularly reducing candy intake. I also explained the need for a gastroenterology referral and the upcoming diagnostic test to evaluate the patient's abdominal symptoms. Preventative care measures, including maintaining up-to-date mammogram and colonoscopy screenings, were reinforced. I encouraged the patient to engage in regular physical activity and provided suggestions for alternative exercise options. Patient Instructions - Continue current diabetes medications and aim to reduce A1c below 7.0. - Reduce candy consumption to help manage blood glucose levels. - Continue atorvastatin for cholesterol management. - Follow up with finishing frame runner for further evaluation of abdominal symptoms. - Ensure mammogram and colonoscopy screenings remain up to date. - Engage in regular physical activity, consider walking in a mall if outdoor conditions are unfavorable. Orders: Orders AMB Hemoglobin A1c Today E11.65 - Type 2 diabetes mellitus with hyperglycemia, Z79.4 - answering service agent (current) use of insulin Complete Blood Count Auto Diff 3 Months E11.65 - Type 2 diabetes mellitus with hyperglycemia Comprehensive Met. Panel 3 Months E11.65 - Type 2 diabetes mellitus with hyperglycemia Free T4 (Free Thyroxine) 3 Months E11.65 - Type 2 diabetes mellitus with hyperglycemia Lipid Panel 3 Months E11.65 - Type 2 diabetes mellitus with hyperglycemia, E78.00 - Pure hypercholesterolemia, unspecified Vitamin B12 and Folate 3 Months E11.65 - Type 2 diabetes mellitus with hyperglycemia Creatinine Urine 3 Months E11.65 - Type 2 diabetes mellitus with hyperglycemia UA CC w/rflx Micro + Cult 3 Months E11.65 - Type 2 diabetes mellitus with hyperglycemia, R30.0 - Dysuria Hemoglobin A1c 3 Months E11.65 - Type 2 diabetes mellitus with hyperglycemia Thyroid Stimulating Hormone 3 Months E11.65 - Type 2 diabetes mellitus with hyperglycemia Microalbumin, Random (w Creat) 3 Months E11.65 - Type 2 diabetes mellitus with hyperglycemia Vitamin D 25-OH Total 3 Months E11.65 - Type 2 diabetes mellitus with hyperglycemia FL upper GI series Today K21.00 - Gastro-esophageal reflux disease with esophagitis, without bleeding, R13.10 - Dysphagia, unspecified Referrals Gastroenterology Referral K21.00 - Gastro-esophageal reflux disease with esophagitis, without bleeding Medications: Changed From insulin glargine (Lantus Solostar U-100 Insulin) 27 units (0.27 mL) subcut DAILY 15 mL 3RF E11.9 - Type 2 diabetes mellitus without complications To insulin glargine (Lantus Solostar U-100 Insulin) 26 units subcut DAILY E11.9 - Type 2 diabetes mellitus without complications
[2025-02-26 14:08] VITALS: BP 122/66; PULSE 83; TEMP 36.3; O2SAT 97; BMI 26.4
--- OUTSIDE RECORDS SUMMARY | 2025-02-26 14:26 | XMS_ITS | Clinical Summary ---
Author Organization [facility] Address [address] [place] [address] Phone Care Team Providers Care Measurement Superintendent Name Role Phone Presley Perez MD Primary Care Provider [phone] Allergies Active Allergy Reactions Criticality Noted Date [...] Problem Noted Date Diagnosed Date Angioedema 08/24/2024 Medical History Medical History Date Comments DM (diabetes mellitus) ([facility] V24, [facility] V28 ) HTN (hypertension) Social [...] 84 08/25/2024 8:35 AM EST Temperature 36.6 C (97.9 F) 08/25/2024 6:14 AM EST Respiratory Rate 11 08/25/2024 8:35 AM EST [...] Panel) 08/11/2023 Colorectal Cancer Screening: Colonoscopy 08/11/2023 Falls Risk Assessment 08/11/2023 Hepatitis C Screening 08/11/2023 Medicare Annual Wellness Visit 08/11/2023 Osteoporosis Screening (Bone Density Screening) 08/11/2023 Social Influencers of Health Screening 08/11/2023 COVID-19 Vaccine (1 - 2023-2 5 season) 2024 Depression Screening 07/17/2024 Diabetes: Annual Urine Albumin-Creatinine Ratio (uACR) 08/24/2024 Diabetes: Blood Sugar Contro l Test (HGBA1C) 08/24/2024 08/25/2023 Influenza Vaccine (#1) 2025 Diabetes: Annual GFR (Glomerular Filtration Rate) [...] Procedure Name Priority Date/Time Associated Diagnosis Comments BASIC METABOLIC PANEL Routine 08/25/2024 5:12 AM EST from Last 3 Months or Most Recently Relevant to Health Maintenance Results * (ABNORMAL) Basic metabolic panel (08/25/2024 5:12 AM EST) Sodium 137 133 - 145 mmol/L LAB CHEMISTRY METHOD 08/25/2024 7:51 AM EST [facility] Potassium 4.6 3.5 - 5.5 mmol/L LAB CHEMISTRY METHOD 08/25/2024 7:51 AM [facility] Chloride 108 96 - 110 mmol/L LAB CHEMISTRY METHOD 08/25/2024 7:51 AM [facility] CO2 24 21 - 32 mmol/L LAB CHEMISTRY METHOD 08/25/2024 7:51 AM [facility] Anion Gap 5 3 - 11 LAB CHEMISTRY METHOD 08/25/2024 7:51 AM [facility] Glucose 288(H) 70 - 100 mg/dL LAB CHEMISTRY METHOD 08/25/2024 7:51 AM [facility] BUN 19 5 - 25 mg/dL LAB CHEMISTRY METHOD 08/25/2024 7:51 AM [facility] Creatinine 0.79 0.50 - 1.10 mg/dL LAB CHEMISTRY METHOD 08/25/2024 7:51 AM [facility] eGFR 81 >=60 mL/min/1. 73m2 LAB CHEMISTRY METHOD 08/25/2024 7:51 AM [facility] Comment:Calculation based on the Chronic Kidney Disease Epidemiology Collaboration (CKD-EPI) equation refit without adjustment for race. BUN/Creatinine Ratio 24.1 LAB CHEMISTRY METHOD 08/25/2024 7:51 AM [facility] Calcium 8.8 8.5 - 10.5 mg/dL LAB CHEMISTRY METHOD 08/25/2024 7:51 AM [facility] Blood Venous blood specimen / Unknown Venipuncture / Unknown 08/25/2024 5:12 AM EST 08/25/2024 7:07 AM EST us Jemal Padilla MD LAB BLOOD ORDERABLES Final Result [facility] [address] [place] [address], from Last 3 Months or Most Recently Relevant to Health Maintenance Insurance [employer] Member Subscriber Plan / Payer (Ef fective 2020-Present) Name:Gayle Antoine Relation to Subscriber:Self Name:Gayle Antoine Payer ID:[id number] Group ID:[id number] Type:Not on file Address: [place]LA[address] [place] [id number] Advance Directives * Full Code - Default [...] currently active code status orders. Care Teams Measurement Superintendent Relationship Specialty Start Date End Date Presley Perez MD [address] [place] [address] [address] [facility] [place] [address] PCP - General 05/15/23
--- OUTSIDE RECORDS SUMMARY | 2025-02-26 14:26 | XMS_ITS | Patient Health Record ---
Author Organization [facility] Address [address] [place] [address] Care Team Providers Care Iv Therapy Nurse Name Role Phone Presley Perez Primary Care Provider Darrion Patel Unavailable [phone] Allergies Allergen (clinical drug ingredient) Drug/Non Drug [...] with a pierre l Orally Once a day; Duration: 30 day(s) Active D3 Active Multivitamin Active Famotidine Active Fenofibrate 48 MG 1 tablet Orally Once a day; Duration: 30 day(s) Active Escitalopram Oxalate 20 MG 1 tablet Oral ly Once a day; Duration: 30 day(s) Active Neurontin 300 MG 1 capsule Orally Onc e a day; Duration: 30 day(s) Active NovoLOG Active Lantus Active Januvia 100 MG 1 tablet Orally Once a day; Duration: 30 day(s) Active Physical Therapy . . . 2-3x/week; Durat ion: 3-4 weeks 07/08/2022 Active Night Splint AFO - [...] Polyneuropathy due to diabetes mellitus type I ([id number]) Type 1 diabetes mellitus with diabetic polyneuropathy (E10.42) Active confirmed Plan Of Treatment Pending Test Test Name Order Date X ray : Foot, left 3V 07/08/2022 X ray : Foot, right 3V 07/08/2022 Insurance Providers Payer Name Payer Address Payer Phone Subscriber Number Group Number Insured Name Patient Relationship to Insured Coverage Start Date Coverage End Date [facility] [employer] Claims [address] [place] [id number] Gayle Antoine Self - patient is the insured Medical (General) History Medical History History ICD Code anemia Anxiety Back,Hip,and Knee pain CAD (Cholesterol) Cataracts Depression Diabetic Gall bladder problems Osteoporosis Reflux ( GERD) Chicken pox Surgical History Surgery Date(Month/Year) gall bladder 1995
== END 2025-02-26 15:48 | disposition home or self-care (01) ==
LOC: HO.HMCH 14:05
PROVIDERS: PCP Internal Medicine; Visit Provider Internal Medicine
DX: E11.65 Type 2 diabetes mellitus with hyperglycemia (principal); Z79.4 Long term (current) use of insulin; E78.5 Hyperlipidemia, unspecified; K21.00 Gastro-esophageal reflux disease with esophagitis, without bleeding; F41.1 Generalized anxiety disorder

== ENCOUNTER → 2025-02-26 14:04 | Outpatient (BNVA) | payer OTHER, SELFPAY | PROVIDERS: PCP Internal Medicine; Visit Provider Internal Medicine | DX: E11.65 Type 2 diabetes mellitus with hyperglycemia (principal); E78.5 Hyperlipidemia, unspecified; F41.1 Generalized anxiety disorder; K21.00 Gastro-esophageal reflux disease with esophagitis, without bleeding; Z79.4 Long term (current) use of insulin; R13.10 Dysphagia, unspecified | CPT/HCPCS: 83036; 99212 ==

== ENCOUNTER 2025-06-05 08:48 | Outpatient (REF) | payer OTHER, SELFPAY ==
[2025-06-05 09:18] LABS: MANUAL DIFF FLAG NO
[2025-06-05 09:38] LABS: Hematocrit 36.0 % (37.0-47.0); Hemoglobin 11.7 g/dl (12.0-16.0); Imm Gran Abs Auto 0.03 X10*3/uL (0.00-0.03); Imm Gran Pct Auto 0.4 % (0.0-0.4); Lymphocytes Absolute Auto 3.0 X10*3/uL (1.2-4.9); Mean Corpuscular HGB Conc 32.5 g/dl (31.0-35.0); Mean Corpuscular Hemoglobin 29.4 pg (27.0-33.0); Mean Corpuscular Volume 90.5 fL (80.0-98.0); NRBC Abs Auto 0.000 X10*3/uL (0.0-0.012); NRBC Pct Auto 0.0 /100WBC (0.0-0.2); Platelet Count 409 X10*3/uL (160-400); Red Blood Count 3.98 X10*6/uL (4.20-5.50); White Blood Count 7.6 X10*3/uL (4.8-10.8)
[2025-06-05 10:10] LABS: Alanine Aminotransferase 20 U/L (0-31); Albumin Level 4.5 g/dL (3.5-5.0); Alkaline Phosphatase 64 U/L (39-117); Anion Gap 13 (12-20); Aspartate Amino Transferase 28 U/L (5-31); Blood Urea Nitrogen 15 mg/dL (9-16); Calcium 9.9 mg/dL (8.4-10.2); Carbon Dioxide 26 mmol/L (22-29); Chloride 108 mmol/L (96-108); Cholesterol 215 mg/dL (<200); Estimated Glomerular Filt Rate > 60; HDL Cholesterol 42 mg/dL (>40); Potassium 4.6 mmol/L (3.3-5.1); Sodium 142 mmol/L (135-145); Total Protein 7.5 g/dL (6.5-8.0); Triglycerides 460 mg/dL (<150)
[2025-06-05 10:32] LABS: Free T4 (Free Thyroxine) 0.79 ng/dL (0.71-1.85); Thyroid Stimulating Hormone 0.59 uIU/mL (0.32-4.0)
[2025-06-05 10:37] LABS: Folate 10.8 ng/mL (> or = 4.0); Vitamin B12 341 pg/mL (200-900)
[2025-06-05 11:26] LABS: Appearance Urine Clear; Glucose Urine UA Negative (Negative); PH 6.0 (5.0-9.0); Specific Gravity - Urine 1.010 (1.005-1.025); UMIC TRIGGER UACC YES
[2025-06-05 11:29] LABS: UACC Culture Trigger YES
[2025-06-05 12:06] LABS: Microalbum/Creatinine Ratio Ur 14.0 ug/mg cr (<30)
== END 2025-06-05 08:49 | disposition home or self-care (01) ==
LOC: HO.LAB 08:48
PROVIDERS: PCP Internal Medicine; Visit Provider Internal Medicine
DX: E11.65 Type 2 diabetes mellitus with hyperglycemia (principal); Z79.4 Long term (current) use of insulin; E78.00 Pure hypercholesterolemia, unspecified; Z13.21 Encounter for screening for nutritional disorder; R30.0 Dysuria
CPT/HCPCS: 36415; 80053; 80061; 81001; 81003; 82043; 82306; 82570; 82607; 82746; 83036; 84439; 84443; 85025; 87086

== ENCOUNTER 2025-06-11 12:50 | Outpatient (AMB) | payer OTHER, SELFPAY ==
--- NOTE | 2025-06-11 12:51 | MHC.PC.OV ---
Vital Signs 06/11/25 12:52 Height 5 ft 2 in Weight 144 lb BMI 26.3 BP 134/72 Blood Pressure Location Lt brachial Position Sitting Pulse 108 H Pulse Source Pulse Oximeter Pulse Oximetry (%) 98 Oxygen Delivery Method Room Air Intake Visit Reasons: DM 3 month follow up Allergies amoxicillin Allergy (Intermediate, Verified 06/11/25 12:52) Rash egg Allergy (Mild, Verified 06/11/25 12:52) Nausea and Vomiting lisinopril Adverse Reaction (Severe, Verified 06/11/25 12:52) Angioedema doxycycline Adverse Reaction (Mild, Verified 06/11/25 12:52) Rash prednisone Adverse Reaction (Mild, Uncoded 06/11/25 12:52) Headaches Medication List - Last Reconciled 06/11/25 by Presley Perez MD atorvastatin 20 mg PO BEDTIME [Bath mat As directed] BD Wendy 2nd Gen Pen Needle (pen needle, diabetic) 5 times a day NS blood pressure monitor (Blood Pressure Kit) As directed blood sugar diagnostic (FreeStyle Lite Strips) As directed three times a day blood-glucose meter (FreeStyle Lite Meter kit) As directed blood-glucose,quarter trimmer,cont (FreeStyle Adi 3 [place]) As directed blood-glucose,quarter trimmer,cont (FreeStyle Adi 3 [place]) As directed cholecalciferol (vitamin D3) 50 mcg PO DAILY 90 days [DIABETIC SHOEs As directed] escitalopram oxalate (Lexapro) 20 mg PO DAILY 90 days famotidine 20 mg PO BID fenofibrate nanocrystallized 145 mg PO DAILY 90 days gabapentin 300 mg PO BID 90 days insulin glargine (Lantus Solostar U-100 Insulin) 26 units subcut DAILY insulin lispro (Humalog KwikPen (U-100) Insulin) subcutaneously Inject 4 times a day according to sliding scale 2-10 units; or as directed less than 60 drink orange juice, 61-150 no coverage, 151-230 2 units, 231 to 280 4 units, 281-330 6 units, 331-380 8 units, > 380 10 units ketorolac 0.5% 0 drps ophthalmic (eye) lancets As directed metformin 1,000 mg PO BID 30 days mupirocin 2% 1 appl topical BID pen needle, diabetic (Unifine Pentips) USE FOUR TIMES A DAY DIRECTED (BULK) sitagliptin phosphate (Januvia) 100 mg PO DAILY 90 days triamcinolone acetonide 0.5% 1 appl topical BID Tobacco use date assessed: 02/26/25 Fall risk assessment: No Falls in past year Last assessed Fall Risk: 06/11/25 Dental Screening Dental Screen Date: 08/07/24 HPI HPI Comments History of Present Illness Details History of Present Illness The patient is a 70 year old individual presenting for a follow-up visit for management of multiple chronic conditions. The patient has a history of type 2 diabetes mellitus, hypercholesterolemia, GERD, osteopenia/osteoporosis confirmed by a bone density scan in September 2023, and generalized anxiety disorder. For diabetes, the patient's hemoglobin A1c is currently 7.5%, unchanged from February, and above the goal of less than 7.0%. The patient is prescribed metformin 1000 mg twice a day, Januvia 100 mg once a day, Lantus 26 units, and a Humalog sliding scale. The patient reports occasionally forgetting to take the nighttime Lantus injection because the patient falls asleep. Regarding hypercholesterolemia, the patient's triglycerides are very high at 460 mg/dL. The patient is prescribed atorvastatin 20 mg once a day and fenofibrate, but reports not taking the fenofibrate, believing it was no longer necessary because previous levels were good. The patient has a history of mild anemia, with a hemoglobin of 11.7 noted on recent labs, which is similar to a value from 2022. There is a childhood history of a severe anemia that required B12 and Vitamin C injections. The patient has a family history of diabetes in both parents. Health screenings, including colonoscopy and mammogram, are noted to be up to date. Health Maintenance - Colonoscopy: Up to date. - Mammogram: Up to date. - Laboratory monitoring: Follow-up blood work for HbA1c and cholesterol was ordered for 3 months from now. - Diet: The patient was counseled to eat healthy, particularly in between holidays. Social History - Medication Adherence: Reports inconsistent adherence with Lantus insulin, admitting to forgetting the nighttime dose. - Also reports non-adherence with fenofibrate, stating the patient stopped taking it after seeing previous good results. - Family History: Both parents had diabetes. Results - Laboratory results: - Complete Blood Count (Jun 05): Hemoglobin 11.7 g/dL, Hematocrit 36%, Thrombocytosis (platelets 409,000/mcL). - Comprehensive Metabolic Panel: Electrolytes and renal function are normal. - Liver function tests are normal. - Blood sugar was 113 mg/dL. - Hemoglobin A1c (today): 7.5%. - Lipid Panel: Triglycerides 460 mg/dL. - Vitamin D: Low. - Urinalysis: No proteinuria. [facility] Medical History Cough RUQ abdominal pain Plantar fasciitis, bilateral Osteoporosis Breast calcifications Breast cancer screening by mammogram Pancreatitis Breast calcification, left Tobacco abuse Type 2 diabetes mellitus with hyperglycemia, with long-term current use of insulin Hypertriglyceridemia retirement current use of insulin Hyperlipidemia LDL goal <100 Diabetic neuropathy Esophagitis Anemia Surgical History History of cataract surgery Hx of mammogram H/O esophagogastroduodenoscopy History of colonoscopy Hx of cholecystectomy Family History Father Diabetes Mother Diabetes Social History Household Members: None Housing: Apartment Alcohol intake: never Patient Tobacco Use Status: Former Tobacco user Tobacco use type: Cigarette Cigarettes Per Day: 5 Years Smoked: quit 2021 e-Cigarette/Vaping Use: Never Used Second Hand Smoke Exposure: Yes service: No Current occupational status: retired Current occupation: left handed Cognitive needs: No Hearing needs: No Vision needs: Yes Questionnaire Thrive Questionnaire Date Thrive assessed: 09/02/24 I am a: Patient What is your living situation today?: I have a steady place to live Within the past 12 months, did the food you bought not last and you didn't have the money to get more?: Never true Within the past 12 months, did you worry whether your food would run out before you got money to buy more?: Never true Do you have trouble paying for medicines?: Yes Do you have trouble getting transportation to medical appointments?: No Do you have trouble paying your heating and electricity bill?: No Do you have trouble taking care of your child, family member or friend?: No Do you have trouble with day-to-day activities such as bathing, preparing meals, shopping, managing finances, etc.?: No Are you currently unemployed and looking for a job?: No Are you interested in more education?: Yes Please select the resources that you would like help with: Education Currently or been in a relationship where the following occur: I choose not to answer THRIVE Score: 0 WILLA-7 AMB Questionnaire WILLA-7 Date WILLA - 7 assessed: 08/07/24 Source: Developed by Drs. Keith Morrison, Alka Hawkins, Sonny Geiger and colleagues, with an educational mary from [employer]. Review of Systems Narrative Review of Systems Physical exam (Primary Care) Vital Signs: Last Vital Signs Pulse 108 H 06/11/25 12:52 BP 134/72 06/11/25 12:52 Pulse Ox 98 06/11/25 12:52 Oxygen Delivery Method Room Air 06/11/25 12:52 BMI result Body Mass Index 26.3 Tobacco/Smoking Status: Tobacco use Status Tobacco use date assessed 02/26/25 06/11/25 12:53 Patient Tobacco Use Status Former Tobacco user 06/11/25 12:53 Tobacco use type Cigarette 06/11/25 12:53 e-Cigarette/Vaping Use Never Used 06/11/25 12:53 Thrive Assessment: Date of Thrive Assessment Date Thrive assessed 09/02/24 06/11/25 12:53 Currently or been in a relationship where the following occur: I choose not to answer Narrative Physical Exam Const General: alert; No acute distress Eyes Conjunctivae: conjunctivae normal Resp Auscultation: clear to auscultation bilaterally Cardio Rate: regular rate Rhythm: regular rhythm GI Inspection: Yes normal to inspection Extrem General: Yes normal to inspection and No edema Coding Level of Care Code Est Pt Level 4 (38013) Complex visit Add On G2211 Diagnoses Type 2 diabetes mellitus with hyperglycemia, with long-term current use of insulin E11.65; Z79.4 Hyperlipidemia LDL goal <100 E78.5 Generalized anxiety disorder F41.1 GERD with esophagitis K21.00 Assessment & Plan Assessment & Plan (1) Type 2 diabetes mellitus with hyperglycemia, with long-term current use of insulin: Comment: Eye Dr. Blevins 2021, 08/2023 Code(s): E11.65 - Type 2 diabetes mellitus with hyperglycemia; Z79.4 - retirement (current) use of insulin Category: Medical Plan: Decrease the amount of carbohydrate intake, pasta, bread, rice and potatoes are all sugar and that is aside from all the sweet stuff, remember that fruits are good but they are Sweet also. Hemoglobin A1c goal of less than 7.0. Patient is taking Humalog sliding scale metformin a 1000 mg twice a day Januvia 100 mg once a day Lantus 26 units (2) Hyperlipidemia LDL goal <100: Comment: Dr. Blevins Code(s): E78.5 - Hyperlipidemia, unspecified Category: Medical Plan: Avoid fried foods, chicken skin, eggs, butter margarine, pastries and meat. Be it pork or beef they have a lot of cholesterol LDL goal of less than 100 and triglyceride of less than 150. Patient is taking atorvastatin 20 mg once a day and fenofibrate (3) Generalized anxiety disorder: Comment: decline counselling 01/2022 Code(s): F41.1 - Generalized anxiety disorder Category: Medical Plan: Continue with Lexapro (4) GERD with esophagitis: Code(s): K21.00 - Gastro-esophageal reflux disease with esophagitis, without bleeding Category: Medical Plan: Avoid the foods that causes that usually spicy foods, tomato products, juices, coffee, soda and foods that your sensitive to. After eating do not lie down, allow 3-4 hours before in lie down. And keep the head of bed above 30 degrees to avoid the acid from going up. Plan Plan Patient was informed and verbally consented to the use of an ambient scribe for clinic note documentation during this visit. 1. Diabetes Mellitus The patient's hemoglobin A1c is 7.5%, which is above the goal of less than 7.0%. This is attributed to medication non-adherence, specifically forgetting to take the nightly Lantus insulin dose. To improve adherence, the administration of Lantus 26 units will be changed from nighttime to morning. The patient will continue metformin 1000 mg twice daily, Januvia 100 mg daily, and Humalog sliding scale. A follow-up HbA1c test will be performed in three months. 2. Hypertriglyceridemia The patient's triglyceride level is severely elevated at 460 mg/dL, well above the goal of less than 150 mg/dL. This is due to non-adherence, as the patient stopped taking fenofibrate. The elevated triglycerides preclude an accurate measurement of LDL cholesterol and pose a risk for pancreatitis. The patient was counseled on the risks and agreed to resume taking fenofibrate. The patient will continue atorvastatin 20 mg daily. A repeat cholesterol test will be performed in three months. 3. Mild Anemia The patient has a mild anemia with a hemoglobin of 11.7 g/dL. This is a chronic, stable finding. Given the mild nature, the plan is to monitor with no further immediate workup, avoiding invasive procedures like a bone marrow biopsy. 4. Vitamin D Deficiency The patient has a low vitamin D level. The patient was advised to take a vitamin D supplement. Discussion Notes I reviewed the patient's recent lab results. I explained that the mild anemia is a long-standing issue and very mild, so we will continue to monitor it without pursuing an invasive workup at this time. We discussed the uncontrolled diabetes, with an HbA1c of 7.5%. I identified medication non-adherence as the patient admitted to frequently forgetting the nightly Lantus dose. We agreed to switch the Lantus to a morning dose to improve consistency, and I emphasized the importance of this long-acting insulin. I also addressed the severely elevated triglyceride level of 460, explaining it was due to stopping fenofibrate. I counseled the patient on the risks, including pancreatitis and cardiovascular events, and explained that high triglycerides prevent an accurate assessment of bad cholesterol. The patient understood and agreed to resume the medication. I explained the rationale for prescribing medications, noting that they are the reason for previous improvements in lab values, and that they need to be taken continuously, especially given the patient's genetic predisposition to diabetes. I have requested follow-up blood work in three months to reassess blood sugar and cholesterol levels. Patient Instructions - To help you remember, start taking your Lantus insulin injection in the morning every day instead of at night. - It is very important to restart your fenofibrate medication for a very high fat level (triglycerides) in your blood. - Please take this medication as prescribed to lower your risk of serious problems like pancreatitis. - Your Vitamin D is low. Please take a vitamin D supplement. - Continue all your other medications as prescribed. - We need to check your blood again in three months (around the end of August) to see if your sugar and cholesterol have improved. - Remember that medications help keep your numbers low, so it is important to keep taking them even when you feel well. - Try to eat healthy, especially between the holidays. Orders: Orders Lipid Panel 3 Months E11.65 - Type 2 diabetes mellitus with hyperglycemia, E78.00 - Pure hypercholesterolemia, unspecified Hemoglobin A1c 3 Months E11.65 - Type 2 diabetes mellitus with hyperglycemia Comprehensive Met. Panel 3 Months E11.65 - Type 2 diabetes mellitus with hyperglycemia
[2025-06-11 12:52] VITALS: BP 134/72; PULSE 108; O2SAT 98; BMI 26.3
--- OUTSIDE RECORDS SUMMARY | 2025-06-11 15:50 | XMS_ITS | Clinical Summary ---
Author Organization [facility] Address [address] [place] [address] Phone Care Team Providers Care [employer] Helper Name Role Phone Presley Perez MD Primary Care Provider [phone] Allergies Active Allergy Reactions Criticality Noted Date [...] Medical History Date Comments DM (diabetes mellitus) ([facility] V24, [facility] V28 ) HTN (hypertension) Social History Tobacco Use Types Packs/Day Years Used Date Smoking Tobacco: Former Cigarettes 0 Q uit: 11/22/2022 Smokeless Tobacco: Never Comments [...] Last Done Comments Breast Cancer Screening 1955 Colorectal Cancer Screening: Colonoscopy 1955 Diabetes: Annual Foot Exam 1965 Diabetes: Annual Retina Eye Exam 1965 DTaP,Tdap,and Td Vaccines (1 - Tdap) 1974 Pneumococcal Vaccine: 50+ Years (1 of 2 - PCV) 1974 RSV Immunization Adult Patients (1 - Risk 50-74 years 1-dose series) 2005 Zoster Vaccines (1 of 2) 2005 Cholesterol Screening (Lipid Panel) 08/11/2023 Falls Risk Assessment 08/11/2023 Hepatitis C Screening 08/11/2023 Medicare Annual Wellness Visit 08/11/2023 Osteoporosis Screening (Bone Density Screening) 08/11/2023 Social Influencers of Health Screening 08/11/2023 Depression Screening 07/17/2024 Diabetes: Annual Urine Albumin-Creatinine Ratio (uACR) 08/24/2024 Diabetes: Blood Sugar Contro l Test (HGBA1C) 08/24/2024 08/25/2023 COVID-19 Vaccine (2024-2 6 season) 2025 Influenza Vaccine (#1) 2025 Diabetes: Annual GFR [...] LAB CHEMISTRY METHOD 08/25/2024 7:51 AM EST [facility] Potassium 4.6 3.5 - 5.5 [...] 08/25/2024 7:51 AM [facility] eGFR 81 >=60 mL/min/1. 73m2 LAB CHEMISTRY METHOD 08/25/2024 7:51 AM [facility] Comment:Calculation based on the Chronic Kidney Disease Epidemiology Collaboration (CKD-EPI) equation refit without adjustment for race. BUN/Creatinine Ratio 24.1 LAB CHEMISTRY METHOD 08/25/2024 7:51 AM [facility] Calcium 8.8 8.5 - 10.5 mg/dL LAB CHEMISTRY METHOD 08/25/2024 7:51 AM [facility] Blood Venous blood specimen / Unknown Venipuncture / Unknown 08/25/2024 5:12 AM EST 08/25/2024 7:07 AM EST us Jemal Padilla MD LAB BLOOD ORDERABLES Final Result [facility] [address] [place] [address], from Last 3 Months or Most Recently Relevant to Health Maintenance Insurance [employer] Member Subscriber Plan / Payer (Ef fective 2020-Present) Name:Gayle Antoine Relation to Subscriber:Self Name:Gayle Antoine Payer ID:[id number] Group ID:[id number] Type:Not on file Address: [place] [address] [place] [id number] Advance Directives * Full Code - Default [...] currently active code status orders. Care Teams [employer] Helper Relationship Specialty Start Date End Date Presley Perez MD [address] [place] [address] Dr [address] [facility] [place] [address] PCP - General 05/15/23
== END 2025-06-11 13:29 | disposition home or self-care (01) ==
LOC: HO.HMCH 12:50
PROVIDERS: PCP Internal Medicine; Visit Provider Internal Medicine
DX: E11.65 Type 2 diabetes mellitus with hyperglycemia (principal); Z79.4 Long term (current) use of insulin; E78.5 Hyperlipidemia, unspecified; F41.1 Generalized anxiety disorder; K21.00 Gastro-esophageal reflux disease with esophagitis, without bleeding

== ENCOUNTER → 2025-06-11 12:50 | Outpatient (BNVA) | payer OTHER, SELFPAY | PROVIDERS: PCP Internal Medicine; Visit Provider Internal Medicine | DX: E11.65 Type 2 diabetes mellitus with hyperglycemia (principal); E78.00 Pure hypercholesterolemia, unspecified; K21.9 Gastro-esophageal reflux disease without esophagitis; M81.0 Age-related osteoporosis without current pathological fracture; F41.1 Generalized anxiety disorder; D64.9 Anemia, unspecified; E78.5 Hyperlipidemia, unspecified; K21.00 Gastro-esophageal reflux disease with esophagitis, without bleeding; E55.9 Vitamin D deficiency, unspecified; Z79.4 Long term (current) use of insulin | CPT/HCPCS: 99212 ==

== ENCOUNTER 2025-06-27 09:51 | Outpatient (REF) | payer OTHER, SELFPAY ==
--- NOTE | ~2025-06-27 | FL_ITS ---
EXAMINATION: XR FLUOROSCOPY UPPER GI WITH AIR CLINICAL INFORMATION: R13.10 - Dysphagia, unspecified COMPARISON: None available. TECHNIQUE: Patient was sutured and thick barium and effervescent granules. FINDINGS: Swallowing mechanism normal. No aspiration or penetration. Normal esophageal motility. There is mild gastroesophageal reflux. There is question of mild distal esophagitis with feline contractions. No esophageal hernia. The stomach and duodenum are normal appearing. No fold thickening, mass, ulcer or stricture. FLUOROSCOPY TIME: 1 minute 13 seconds DOSE AREA PRODUCT: 731 uGy-m2 (microgray-meter squared) FL/FL upper GI w air IMPRESSION: Gastroesophageal reflux and question mild distal esophagitis. Otherwise unremarkable exam. Electronically signed by: Mae Conner MD 06/27/2025 10:50 AM [facility]
== END 2025-06-27 09:52 | disposition home or self-care (01) ==
LOC: HO.XRAY 09:51
PROVIDERS: PCP Internal Medicine; Visit Provider Internal Medicine
DX: K21.00 Gastro-esophageal reflux disease with esophagitis, without bleeding (principal); R13.10 Dysphagia, unspecified
CPT/HCPCS: 74246

== ENCOUNTER → 2025-06-27 09:53 | Outpatient (BNV) | payer OTHER, SELFPAY | PROVIDERS: PCP Internal Medicine; Visit Provider Radiology Diagnostic Radiology | DX: R13.10 Dysphagia, unspecified (principal) | CPT/HCPCS: 74246 ==